=== PATIENT | female | born 1960 | race Caucasian/White ===

== ENCOUNTER 2016-09-27 11:59 | Emergency (ER) | payer OTHER ==
[2016-09-27] MEDS ORDERED: NAPROXEN 250 MG TAB As Ordered ONE (12:41)
--- NOTE | 2016-09-27 13:20 | REP ---
Clinical: Trauma. Technique: AP, lateral, bilateral oblique views left third digit. Findings: The osseous structures and joint spaces are intact and normal. There is no evidence for acute fracture or dislocation. Surrounding soft tissues are unremarkable. No subcutaneous emphysema or radiodense foreign body. Impression: No acute fracture or dislocation. Signed by Benson Osborn MD 09/27/2016 01:11 P
--- NOTE | 2016-09-27 13:35 | EDDOCDS ---
Physician Documentation [facility] Name: Leia Goldberg Age: 55 yrs Sex: Female : 1960 Arrival Date: 09/27/2016 Time: 11:59 Bed 13 Private MD: No Pcp Disposition: 09/27/16 13:15 Discharged to Home/Self Care. Impression: Contusion of middle finger without damage to nail. - Condition is Stable. - Discharge Instructions: Elastic Bandage and RICE, Contusion, Contusion, [id number]. - Medication Reconciliation, Local Pharmacy Hours form. - Follow up: [facility]; When: Call to arrange an appointment. - Problem is new. - Symptoms are unchanged. Historical: - Allergies: no known allergies; - Home Meds: 1. none - PMHx: none; - PSHx: none; - Social history: Smoking status: Patient uses tobacco products, heavy tobacco smoker. No barriers to communication noted, The patient speaks fluent Urdu, Speaks appropriately for age. - Family history: Not pertinent. - : The pt / caregiver states he / she is not on anticoagulants. Home medication list is obtained from the patient. - Exposure Risk Screening:: None identified. Vital Signs: 09/27 12:02 BP 135 / 78; Pulse 77; Resp 18; Temp 97.1; Pulse Ox 97% on R/A; Weight 57.61 kg / jrd 127.01 lbs (M); Height 5 ft. 2 in. (157.48 cm); Pain 10/10; 12:02 Body Mass Index 23.23 (57.61 kg, 157.48 cm) jrd MDM: 12:32 Naproxen 500 mg PO once; administer with food or milk ordered. sd1 12:33 Fingers Ordered. EDMS 13:01 Financial registration complete. lg 13:12 [facility] [place]. Nursing Order ordered. sd1 13:24 [facility] Payment Agreement was scanned into [employer] and attached to record. lg Administered Medications: 12:47 Drug: Naproxen 500 mg [naproxen 250 mg tablet (2 tabs)] Route: PO; hs1 Signatures: Dispatcher [employer] EDNE Laury Paz MD MD sd1 Genoveva Giron RN RN Jordon Alvares, Reg Reg lg Bella Torres RN RN pml Karin Morales RN hs1 The chart was reviewed and I authenticate all verbal orders and agree with the evaluation and treatment provided.Attachments: 13:24 [facility] Payment Agreement lg MTDD
--- NOTE | 2016-09-27 13:35 | EDDOCDS ---
Nurse's Notes [facility] Name: Leia Goldberg Age: 55 yrs Sex: Female : 1960 Arrival Date: 09/27/2016 Time: 11:59 Bed 13 Private MD: No Pcp Diagnosis: Contusion of middle finger without damage to nail Presentation: 09/27 12:07 Presenting complaint: Patient states: was changing tire on the car and was holding tire pml by a hole and lifted it. pain and swelling to left finger. Adult Sepsis Screening: The patient does not have new or worsening altered mentation. Patient's respiratory rate is less than 22. Systolic blood pressure is greater than 100. Patient has a qSOFA score of 0- Negative Sepsis Screen. Suicide/Homicide risk assessment- the patient denies having any suicidal and/or homicidal ideations and does not present with any other emotional, behavioral or mental health complaints. 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 Transition of care: patient was not received from another setting of care. 12:07 Acuity: DASIA Level 4 pml 12:07 Method Of Arrival: Walkin/Carried/Asstd pml Triage Assessment: 12:08 General: Appears in no apparent distress, Behavior is appropriate for age, cooperative. pml Pain: Location: dorsal aspect of proximal phalanx of left index finger and dorsal aspect of proximal phalanx of left middle finger Pain currently is 10 out of 10 on a pain scale. HIV screening NA for this visit Offered previously. Musculoskeletal: Circulation, motion, and sensation intact Capillary refill < 3 seconds. Historical: - Allergies: no known allergies; - Home Meds: 1. none - PMHx: none; - PSHx: none; - Social history: Smoking status: Patient uses tobacco products, heavy tobacco smoker. No barriers to communication noted, The patient speaks fluent Urdu, Speaks appropriately for age. - Family history: Not pertinent. - : The pt / caregiver states he / she is not on anticoagulants. Home medication list is obtained from the patient. - Exposure Risk Screening:: None identified. Screenin:49 Screening information is obtained from the patient. Fall risk: No risks identified. hs1 Assistance ADL's: requires no assistance with activities of daily living. Abuse/DV Screen: The patient / caregiver reports he/she is: not in a situation that causes fear, pain or injury. Nutritional screening: No deficits noted. Advance Directives: There is no active DNR order. home support is adequate. Assessment: 12:49 General: Appears in no apparent distress, Behavior is appropriate for age, cooperative. hs1 Pain: Location: left hand Pain currently is 10 out of 10 on a pain scale. Respiratory: No deficits noted. Musculoskeletal: Range of motion intact in all extremities. Swelling present in left hand. 13:30 Reassessment: Finger splint applied to left middle finger and patient instructed. kcs Tolerated well.. General: Appears comfortable, well developed, well nourished, Behavior is cooperative, pleasant. Pain: Location: left middle finger Pain. Neurological: Level of Consciousness is awake, alert. Respiratory: Airway is patent Respiratory effort is even, unlabored, Respiratory pattern is regular, symmetrical. Derm: Skin is intact, is healthy with good turgor, Skin is dry, Skin is normal. Vital Signs: 12:02 BP 135 / 78; Pulse 77; Resp 18; Temp 97.1; Pulse Ox 97% on R/A; Weight 57.61 kg (M); jrd Height 5 ft. 2 in. (157.48 cm); Pain 10/10; 12:02 Body Mass Index 23.23 (57.61 kg, 157.48 cm) [facility] Vitals: 12:02 Log In Time: September 27, 2016 at 11:56. [facility] ED Course: 12:00 Patient visited by Paolo Shepard PCA. jrd 12:00 Patient moved to Waiting jrd 12:02 No Pcp is Private Physician. jrd 12:04 Patient visited by Paolo Shepard PCA. jrd 12:04 Patient moved to Pre E jrd 12:08 Triage Initiated pml 12:09 Patient visited by Bella Torres RN. pml 12:29 Karin Morales RN is Primary Nurse. js13 12:29 Laury Paz MD is Attending Physician. sd1 12:29 Patient visited by Laury Paz MD. sd1 12:29 Patient moved to 13 js13 12:50 The patient / caregiver is instructed regarding the plan of care and ED course. hs1 12:50 No IV's were initiated during this patient's visit. hs1 13:14 [facility] is Referral Physician. sd1 13:24 [facility] Payment Agreement was scanned into [employer] and attached to record. lg 13:30 No procedures done that require assistance. kcs Administered Medications: 12:47 Drug: Naproxen 500 mg [naproxen 250 mg tablet (2 tabs)] Route: PO; hs1 Order Results: There are currently no results for this order. Outcome: 13:15 Discharge ordered by Provider. sd1 13:30 Discharge Assessment: Patient awake, alert and oriented x 3. No cognitive and/or kcs functional deficits noted. Patient verbalized understanding of disposition instructions. Patient awake and alert. patient administered narcotics - no. The following High Risk Discharge criteria are identified: None. Discharged to home ambulatory. Condition: stable. Discharge instructions given to patient, Instructed on discharge instructions, follow up and referral plans. No special radiology studies were completed. Property sent home with patient. 13:35 Patient left the ED. kcs Signatures: Laury Paz MD MD sd1 Genoveva Giron, RN RN kcs Jordon Bradford, Reg Reg Karin Morales RN RN hs1 Bella TorresRN RN Myrna WeberRN RN js13 Paolo Shepard, ALESSANDRA CANDY ROLLING MACHINE OPERATOR jrd MTDD
--- NOTE | 2016-09-29 14:36 | EDDOCDS ---
Physician Documentation [facility] Name: Leia Goldberg Age: 55 yrs Sex: Female : 1960 Arrival Date: 09/27/2016 Time: 11:59 Bed 13 Private MD: No Pcp Disposition: 09/27/16 13:15 Discharged to Home/Self Care. Impression: Contusion of middle finger without damage to nail. - Condition is Stable. - Discharge Instructions: Elastic Bandage and RICE, Contusion, Contusion, [id number]. - Medication Reconciliation, Local Pharmacy Hours form. - Follow up: [facility]; When: Call to arrange an appointment. - Problem is new. - Symptoms are unchanged. Historical: - Allergies: no known allergies; - Home Meds: 1. none - PMHx: none; - PSHx: none; - Social history: Smoking status: Patient uses tobacco products, heavy tobacco smoker. No barriers to communication noted, The patient speaks fluent Uzbek, Speaks appropriately for age. - Family history: Not pertinent. - : The pt / caregiver states he / she is not on anticoagulants. Home medication list is obtained from the patient. - Exposure Risk Screening:: None identified. Vital Signs: 09/27 12:02 BP 135 / 78; Pulse 77; Resp 18; Temp 97.1; Pulse Ox 97% on R/A; Weight 57.61 kg / jrd 127.01 lbs (M); Height 5 ft. 2 in. (157.48 cm); Pain 10/10; 12:02 Body Mass Index 23.23 (57.61 kg, 157.48 cm) jrd MDM: 12:32 Naproxen 500 mg PO once; administer with food or milk ordered. sd1 12:33 Fingers Ordered. EDMS 13:01 Financial registration complete. lg 13:12 [facility] [place]. Nursing Order ordered. sd1 13:24 [facility] [place] Payment Agreement was scanned into [employer] and attached to record. lg 14:50 T-Sheet-- Draft Copy was scanned into [employer] and attached to record. gb Administered Medications: 12:47 Drug: Naproxen 500 mg [naproxen 250 mg tablet (2 tabs)] Route: PO; hs1 Signatures: Dispatcher [employer] EDCA Laury Paz MD MD sd1 Genoveva Giron, RN RN kcs Promise Huang, Reg Reg gb Jordon Bradford, Reg Reg lg Bella Torres RN RN [facility] Karin Morales RN hs1 The chart was reviewed and I authenticate all verbal orders and agree with the evaluation and treatment provided.Attachments: 13:24 [facility] Payment Agreement lg 14:50 T-Sheet-- Draft Copy gb Chart Complete MTDD
--- NOTE | 2016-09-29 14:36 | EDDOCDS ---
Physician Documentation [facility] Name: Leia Goldberg Age: 55 yrs Sex: Female : 1960 Arrival Date: 09/27/2016 Time: 11:59 Bed 13 Private MD: No Pcp Disposition: 09/27/16 13:15 Discharged to Home/Self Care. Impression: Contusion of middle finger without damage to nail. - Condition is Stable. - Discharge Instructions: Elastic Bandage and RICE, Contusion, Contusion, [id number]. - Medication Reconciliation, Local Pharmacy Hours form. - Follow up: [facility]; When: Call to arrange an appointment. - Problem is new. - Symptoms are unchanged. Historical: - Allergies: no known allergies; - Home Meds: 1. none - PMHx: none; - PSHx: none; - Social history: Smoking status: Patient uses tobacco products, heavy tobacco smoker. No barriers to communication noted, The patient speaks fluent Croatian, Speaks appropriately for age. - Family history: Not pertinent. - : The pt / caregiver states he / she is not on anticoagulants. Home medication list is obtained from the patient. - Exposure Risk Screening:: None identified. Vital Signs: 09/27 12:02 BP 135 / 78; Pulse 77; Resp 18; Temp 97.1; Pulse Ox 97% on R/A; Weight 57.61 kg / jrd 127.01 lbs (M); Height 5 ft. 2 in. (157.48 cm); Pain 10/10; 12:02 Body Mass Index 23.23 (57.61 kg, 157.48 cm) jrd MDM: 12:32 Naproxen 500 mg PO once; administer with food or milk ordered. sd1 12:33 Fingers Ordered. EDMS 13:01 Financial registration complete. lg 13:12 [facility] [place]. Nursing Order ordered. sd1 13:24 [facility] [place] Payment Agreement was scanned into [employer] and attached to record. lg 14:50 T-Sheet-- Draft Copy was scanned into [employer] and attached to record. gb Administered Medications: 12:47 Drug: Naproxen 500 mg [naproxen 250 mg tablet (2 tabs)] Route: PO; hs1 Signatures: Dispatcher [employer] EDMT Laury Paz MD MD sd1 Genoveva Giron, RN RN kcs Promise Huang, Reg Reg gb Jordon Bradford, Reg Reg lg Bella Torres RN RN [facility] Karin Morales RN hs1 The chart was reviewed and I authenticate all verbal orders and agree with the evaluation and treatment provided.Attachments: 13:24 [facility] Payment Agreement lg 14:50 T-Sheet-- Draft Copy gb Chart Complete MTDD
--- NOTE | 2016-09-29 14:36 | EDDOCDS ---
Nurse's Notes [facility] Name: Leia Goldberg Age: 55 yrs Sex: Female : 1960 Arrival Date: 09/27/2016 Time: 11:59 Bed 13 Private MD: No Pcp Diagnosis: Contusion of middle finger without damage to nail Presentation: 09/27 12:07 Presenting complaint: Patient states: was changing tire on the car and was holding tire pml by a hole and lifted it. pain and swelling to left finger. Adult Sepsis Screening: The patient does not have new or worsening altered mentation. Patient's respiratory rate is less than 22. Systolic blood pressure is greater than 100. Patient has a qSOFA score of 0- Negative Sepsis Screen. Suicide/Homicide risk assessment- the patient denies having any suicidal and/or homicidal ideations and does not present with any other emotional, behavioral or mental health complaints. Status: Patient is not a office services representative or dependent. Transition of care: patient was not received from another setting of care. 12:07 Acuity: DASIA Level 4 pml 12:07 Method Of Arrival: Walkin/Carried/Asstd pml Triage Assessment: 12:08 General: Appears in no apparent distress, Behavior is appropriate for age, cooperative. pml Pain: Location: dorsal aspect of proximal phalanx of left index finger and dorsal aspect of proximal phalanx of left middle finger Pain currently is 10 out of 10 on a pain scale. HIV screening NA for this visit Offered previously. Musculoskeletal: Circulation, motion, and sensation intact Capillary refill < 3 seconds. Historical: - Allergies: no known allergies; - Home Meds: 1. none - PMHx: none; - PSHx: none; - Social history: Smoking status: Patient uses tobacco products, heavy tobacco smoker. No barriers to communication noted, The patient speaks fluent German, Speaks appropriately for age. - Family history: Not pertinent. - : The pt / caregiver states he / she is not on anticoagulants. Home medication list is obtained from the patient. - Exposure Risk Screening:: None identified. Screenin:49 Screening information is obtained from the patient. Fall risk: No risks identified. hs1 Assistance ADL's: requires no assistance with activities of daily living. Abuse/DV Screen: The patient / caregiver reports he/she is: not in a situation that causes fear, pain or injury. Nutritional screening: No deficits noted. Advance Directives: There is no active DNR order. home support is adequate. Assessment: 12:49 General: Appears in no apparent distress, Behavior is appropriate for age, cooperative. hs1 Pain: Location: left hand Pain currently is 10 out of 10 on a pain scale. Respiratory: No deficits noted. Musculoskeletal: Range of motion intact in all extremities. Swelling present in left hand. 13:30 Reassessment: Finger splint applied to left middle finger and patient instructed. kcs Tolerated well.. General: Appears comfortable, well developed, well nourished, Behavior is cooperative, pleasant. Pain: Location: left middle finger Pain. Neurological: Level of Consciousness is awake, alert. Respiratory: Airway is patent Respiratory effort is even, unlabored, Respiratory pattern is regular, symmetrical. Derm: Skin is intact, is healthy with good turgor, Skin is dry, Skin is normal. Vital Signs: 12:02 BP 135 / 78; Pulse 77; Resp 18; Temp 97.1; Pulse Ox 97% on R/A; Weight 57.61 kg (M); jrd Height 5 ft. 2 in. (157.48 cm); Pain 10/10; 12:02 Body Mass Index 23.23 (57.61 kg, 157.48 cm) [facility] Vitals: 12:02 Log In Time: September 27, 2016 at 11:56. [facility] ED Course: 12:00 Patient visited by Paolo Shepard PCA. jrd 12:00 Patient moved to Waiting jrd 12:02 No Pcp is Private Physician. jrd 12:04 Patient visited by Paolo Shepard PCA. jrd 12:04 Patient moved to Pre E jrd 12:08 Triage Initiated pml 12:09 Patient visited by Bella Torres RN. pml 12:29 Karin Morales RN is Primary Nurse. js13 12:29 Laury Paz MD is Attending Physician. sd1 12:29 Patient visited by Laury Paz MD. sd1 12:29 Patient moved to 13 js13 12:50 The patient / caregiver is instructed regarding the plan of care and ED course. hs1 12:50 No IV's were initiated during this patient's visit. hs1 13:14 [facility] is Referral Physician. sd1 13:24 [facility] [place] Agreement was scanned into [employer] and attached to record. lg 13:30 No procedures done that require assistance. kcs 13:51 Fingers Returned. EDMS 14:50 T-Sheet-- Draft Copy was scanned into [employer] and attached to record. gb Administered Medications: 12:47 Drug: Naproxen 500 mg [naproxen 250 mg tablet (2 tabs)] Route: PO; hs1 Order Results: Radiology Order: Fingers Test: Fingers REASON FOR EXAMINATION: middle; Clinical: Trauma.; ; Technique: AP, lateral, bilateral oblique views left third digit.; ; Findings: The osseous structures and joint spaces are intact and normal. There; is no evidence for acute fracture or dislocation. Surrounding soft tissues are; unremarkable. No subcutaneous emphysema or radiodense foreign body.; ; Impression:; No acute fracture or dislocation.; ; ; Signed by; Benson Osborn MD 09/27/2016 01:11 P; Outcome: 13:15 Discharge ordered by Provider. sd1 13:30 Discharge Assessment: Patient awake, alert and oriented x 3. No cognitive and/or kcs functional deficits noted. Patient verbalized understanding of disposition instructions. Patient awake and alert. patient administered narcotics - no. The following High Risk Discharge criteria are identified: None. Discharged to home ambulatory. Condition: stable. Discharge instructions given to patient, Instructed on discharge instructions, follow up and referral plans. No special radiology studies were completed. Property sent home with patient. 13:35 Patient left the ED. kcs Signatures: Dispatcher [employer] EDHI Laury Paz MD MD sd1 Genoveva Giron, RN RN kcs Promise Huang, Reg Reg gb Jordon Bradford, Reg Reg lg Karin Morales RN RN hs1 Bella Torres RN RN pml Sullivan, JenniferRN RN js13 Paolo Shepard, ALESSANDRA march Chart Complete MTDD
== END 2016-09-27 13:35 | disposition home or self-care (01) ==
LOC: M ED 11:59
DX: S60.032A Contusion of left middle finger without damage to nail, initial encounter (principal); X58.XXXA Exposure to other specified factors, initial encounter; Y92.410 Unspecified street and highway as the place of occurrence of the external cause; Y93.9 Activity, unspecified; Y99.9 Unspecified external cause status; Z72.0 Tobacco use

== ENCOUNTER 2017-09-24 12:45 | Emergency (ER) | payer OTHER, MEDICAID ==
[2017-09-24 13:57] LABS: INFLUENZA A AMPLIFICATION POSITIVE (NEGATIVE); INFLUENZA B AMPLIFICATION NEGATIVE (NEGATIVE)
== END 2017-09-24 14:20 | disposition home or self-care (01) ==
LOC: M ED 12:45
DX: J09.X2 Influenza due to identified novel influenza A virus with other respiratory manifestations (principal); H66.92 Otitis media, unspecified, left ear; F17.200 Nicotine dependence, unspecified, uncomplicated; Z91.89 Other specified personal risk factors, not elsewhere classified; Z91.013 Allergy to seafood
CPT/HCPCS: 71046

== ENCOUNTER 2018-05-23 11:03 | Emergency (ER) | payer OTHER | END 2018-05-23 13:01 | disposition home or self-care (01) | LOC: M ED 11:03 | DX: S39.012A Strain of muscle, fascia and tendon of lower back, initial encounter (principal); S39.011A Strain of muscle, fascia and tendon of abdomen, initial encounter; M62.830 Muscle spasm of back; X50.0XXA Overexertion from strenuous movement or load, initial encounter; Y92.89 Other specified places as the place of occurrence of the external cause; Y99.0 Civilian activity done for income or pay; M51.37 Other intervertebral disc degeneration, lumbosacral region; M47.817 Spondylosis without myelopathy or radiculopathy, lumbosacral region; F17.200 Nicotine dependence, unspecified, uncomplicated; Z88.8 Allergy status to other drugs, medicaments and biological substances; Z91.048 Other nonmedicinal substance allergy status; Z91.013 Allergy to seafood | CPT/HCPCS: 72110 ==

== ENCOUNTER 2019-03-06 15:26 | Emergency (ER) | payer OTHER ==
[~2019-03-06] VITALS: Ht 157.5 cm; Wt 52.3 kg
[~2019-03-06 15:26] MED LIST: CEFD1CAP8 PO; CYCL5TAB PO; NAPR-837 PO
[2019-03-06 15:27] VITALS: BP 174/83
[2019-03-06 16:27] LABS: HEMATOCRIT 44.7 % (36.0-47.0); HEMOGLOBIN 14.4 g/dl (12.0-15.5); MEAN CORPUSCULAR HEMOGLOBIN 30.4 pg (27.0-33.0); MEAN CORPUSCULAR HGB CONC 32.2 g/dl (32.0-36.5); MEAN CORPUSCULAR VOLUME 94.5 fl (80.0-96.0); PLATELET COUNT, AUTOMATED 376 10^3/uL (150-450); RED BLOOD COUNT 4.73 10^6/uL (4.00-5.40); WHITE BLOOD COUNT 9.2 10^3/uL (4.0-10.0)
[2019-03-06 17:03] LABS: ACETAMINOPHEN LEVEL < 2.0 UG/ML (10.0-30.0); ALBUMIN 3.7 GM/DL (3.2-5.2); ALT/SGPT 21 U/L (12-78); BILIRUBIN,DIRECT < 0.1 MG/DL (0.0-0.2); BILIRUBIN,TOTAL 0.2 MG/DL (0.2-1.0); BLOOD UREA NITROGEN 21 MG/DL (7-18); CALCIUM LEVEL 9.7 MG/DL (8.8-10.2); CARBON DIOXIDE LEVEL 30 MEQ/L (21-32); CHLORIDE LEVEL 109 MEQ/L (98-107); CREATININE FOR GFR 0.83 MG/DL (0.55-1.30); ETHYL ALCOHOL (ETHANOL) 0.003 % (0.000-0.010); FREE THYROXINE INDEX 3.3 % (1.3-4.8); GLOMERULAR FILTRATION RATE > 60.0 (>45); GLUCOSE, FASTING 138 MG/DL (70-100); LDH LACTATE DEHYDROGENASE 158 U/L (84-246); POTASSIUM SERUM 3.7 MEQ/L (3.5-5.1); SALICYLATE LEVEL 5.6 MG/DL (5.0-30.0); SODIUM LEVEL 143 MEQ/L (136-145); T UPTAKE 36 % (30-39); THYROXINE (T4) 9.3 UG/DL (4.5-12.0); TOTAL PROTEIN 7.1 GM/DL (6.4-8.2)
[2019-03-09 14:07] LABS: ANDROSTENEDIONE 55 ng/dL (41-262); TESTOSTERONE FREE (DIRECT) 0.7 pg/mL (0.0-4.2)
== END 2019-03-06 17:37 | disposition home or self-care (01) ==
LOC: M ED 15:26
DX: F29 Unspecified psychosis not due to a substance or known physiological condition (principal); F32.9 Major depressive disorder, single episode, unspecified; Z88.8 Allergy status to other drugs, medicaments and biological substances; Z91.048 Other nonmedicinal substance allergy status; Z91.013 Allergy to seafood
CPT/HCPCS: 36415; 80048; 80076; 82157; 83615; 84402; 84403; 84436; 84443; 84479; 85027; 99284; G0480

== ENCOUNTER 2019-03-21 15:44 | Inpatient (IN) | payer MEDICAID, OTHER ==
[~2019-03-21] VITALS: Ht 157.5 cm; Wt 47.3 kg
[~2019-03-21 15:44] MED LIST changes: +NAPR-885 PO; +ROBA500T PO; +SOMA350T PO
--- NOTE | 2019-03-21 17:03 | REP ---
Chest x-ray: Two views. History: Altered mental status. Findings: The lungs are somewhat hyperinflated but free of infiltrate. Pleural angles are sharp. Heart is not enlarged. The aorta is calcific. There is some great vessel calcification visible adjacent to the aorta. Pulmonary vasculature is not increased. No significant bony abnormality is seen. Impression: Hyperinflation. Otherwise no acute disease. Electronically Signed by Michael Owens MD 03/21/2019 09:08 P
--- NOTE | 2019-03-21 17:19 | REPVR ---
EXAM: CT Head Without Contrast EXAM DATE/TIME: 03/21/2019 4:35 PM CLINICAL HISTORY: 58 years old, female; Pain; Headache; Additional info: Altered TECHNIQUE: Imaging protocol: Computed tomography images of the head without contrast. Radiation optimization: All CT scans at this facility use at least one of these dose optimization techniques: automated exposure control; mA and/or kV adjustment per patient size (includes targeted exams where dose is matched to clinical indication); or iterative reconstruction. COMPARISON: No relevant prior studies available. FINDINGS: Brain: There is no evidence of infarct, shen-white matter differentiation is preserved. There is no hemorrhage or extra-axial collection. There is no mass. No evidence of subarachnoid hemorrhage. Ventricles: There is no hydrocephalus. Bones/joints: Unremarkable. No acute fracture. Sinuses: Visualized sinuses are unremarkable. No fluid levels. Mastoid air cells: Visualized mastoid air cells are well aerated. No mastoid effusion. Soft tissues: Unremarkable. IMPRESSION: No intracranial lesion or injury. Electronically signed by: Milan Caba On 03/21/2019 17:19:10 PM
[2019-03-21 17:25] LABS: HEMATOCRIT 43.5 % (36.0-47.0); HEMOGLOBIN 14.2 g/dl (12.0-15.5); MEAN CORPUSCULAR HEMOGLOBIN 31.3 pg (27.0-33.0); MEAN CORPUSCULAR HGB CONC 32.6 g/dl (32.0-36.5); PLATELET COUNT, AUTOMATED 366 10^3/uL (150-450); RED BLOOD COUNT 4.53 10^6/uL (4.00-5.40); WHITE BLOOD COUNT 8.8 10^3/uL (4.0-10.0)
[2019-03-21 17:26] LABS: AMPHETAMINES LEVEL URINE NEGATIVE (NEGATIVE); BARBITURATES URINE NEGATIVE (NEGATIVE); BENZODIAZEPINES URINE NEGATIVE (NEGATIVE); CANNABINOIDS URINE NEGATIVE (NEGATIVE); COCAINE METABOLITE URINE NEGATIVE (NEGATIVE); METHADONE URINE NEGATIVE (NEGATIVE); OPIATES URINE NEGATIVE (NEGATIVE); PHENCYCLIDINE URINE NEGATIVE (NEGATIVE)
[2019-03-21] MEDS ORDERED: NITROFURANTOIN (MACROBID) 100 MG CAP PO ONE (17:45)
[2019-03-21 17:58] LABS: ACETAMINOPHEN LEVEL < 2.0 UG/ML (10.0-30.0); ALBUMIN 3.5 GM/DL (3.2-5.2); ALT/SGPT 33 U/L (12-78); BILIRUBIN,DIRECT < 0.1 MG/DL (0.0-0.2); BILIRUBIN,TOTAL 0.1 MG/DL (0.2-1.0); BLOOD UREA NITROGEN 15 MG/DL (7-18); CALCIUM LEVEL 9.2 MG/DL (8.8-10.2); CARBON DIOXIDE LEVEL 33 MEQ/L (21-32); CHLORIDE LEVEL 104 MEQ/L (98-107); CPK CREATINE PHOSPHOKINASE 195 U/L (26-192); CREATININE FOR GFR 0.72 MG/DL (0.55-1.30); ETHYL ALCOHOL (ETHANOL) < 0.003 % (0.000-0.010); GLOMERULAR FILTRATION RATE > 60.0 (>45); GLUCOSE, FASTING 94 MG/DL (70-100); MAGNESIUM LEVEL 2.5 MG/DL (1.8-2.4); POTASSIUM SERUM 4.1 MEQ/L (3.5-5.1); SALICYLATE LEVEL 4.6 MG/DL (5.0-30.0); SODIUM LEVEL 142 MEQ/L (136-145); THYROID STIMULATING HORMONE 0.506 uIU/ML (0.358-3.740); TOTAL PROTEIN 6.6 GM/DL (6.4-8.2)
--- NOTE | 2019-03-21 18:09 | ECGEPIP ---
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
[2019-03-21] MEDS ORDERED: QUEtiapine FUMARATE 50 MG TAB PO PRN (21:30)
[2019-03-21] MEDS ORDERED: MAALOX 30 ML SUSP *UDC PO PRN (21:30)
[2019-03-21] MEDS ORDERED: OLANZapine ORAL DISINTEGRATING TAB 5MG PO PRN (21:30)
[2019-03-21] MEDS ORDERED: ACETAMINOPHEN TAB 650MG DOSE (2X325MG) PO PRN (21:30)
[2019-03-21] MEDS ORDERED: MOM 30ML SUSPENSION UDC PO PRN (21:30)
[2019-03-21] MEDS ORDERED: lisinopriL 10 MG TAB PO ONE (22:30)
[2019-03-21] MEDS ORDERED: LORazepam 1 MG TAB PO ONE (22:30)
[2019-03-21] MEDS: PALIPERIDONE 3 MG ER TAB (INVEGA) PO SCH (22:33)
[2019-03-22 00:46] VITALS: BP 160/88
[2019-03-22 06:40] VITALS: BP 132/63
--- NOTE | 2019-03-22 07:47 | HPEPDOC ---
General Date of Admission Mar 21, 2019 at 21:22 Date of Service: Mar 22, 2019 Attending Physician: LANEY RIGGS MD Chief Complaint The patient is a 58-year-old female admitted with a reason for visit of Unspecified Psychotic Disorder. History of Present Illness Norman Barnes is a 58-year-old female, admitted on account of paranoid delusional behavior, who recently called the fashion journalist for "people following her". Patient was admitted to inpatient psychiatric unit for further evaluation and management. On assessment. Affect is flat, patient is unable to provide any hist ory. She denies chills or fever, chest pain, shortness of breath, weakness, diarrhea, nausea. Home Medications No Active Prescriptions or Reported Meds Allergies Coded Allergies: shellfish derived (Verified Allergy, Unknown, 03/21/19) Past Medical History Medical History Patient denies any past medical history Surgical History Patient denies any surgical history Family History Patient denies any significant family history Social History * Smoker: Denies Alcohol: Denies Drugs: denies A-FIB/CHADSVASC A-FIB History Current/History of A-Fib/PAF?: No Current PO Anticoag Therapy: No Review of Systems Other systems Review of systems not completed due to current mental status Physical Examination Other physical findings GENERAL: NAD SKIN : Warm, dry intact HEENT: Atraumatic, normocephalic, PERRL, moist mucous membrane CARDIOVASCULAR: Regular rate and rhythm, S1S2, no JVD, no edema, distal pulses + palpable RESP: CTAB, no accessory muscle use noted ABDOMEN: BS+ non distended non tender MS: no joint deformities NEURO: Alert and oriented to self, CN2-12 grossly intact PSYCH: paranoid Vital Signs Vital Signs Date Time Temp Pulse Resp B/P (MAP) Pulse Ox O2 Delivery O2 Flow Rate FiO2 03/22/19 06:40 99.0 67 16 132/63 (86) 03/22/19 00:46 99 03/21/19 22:20 Room Air Laboratory Data Labs 24H Laboratory Tests 2 03/21/19 16:51: Urine Color YELLOW, Urine Appearance HAZY, Urine pH 6.0, Urine Specific Dewitt 1.018, Urine Protein NEGATIVE, Urine Glucose (UA) NEGATIVE, Urine Ketones NEGATIVE, Urine Blood 1+H, Urine Nitrite NEGATIVE, Urine Bilirubin NEGATIVE, Urine Urobilinogen 2.0H, Urine Leukocyte Esterase TRACEH, Urine WBC (Auto) 15H, Urine RBC (Auto) 3, Urine Hyaline Casts (Auto) 0, Urine Bacteria (Auto) 1+H, Urine Squamous Epithelial Cells 5, Urine Calcium Oxalate Cryst (Auto) SMALL, Urine Mucus (Auto) LARGE, Urine Sperm (Auto) , Urine Amphetamines Screen NEGATIVE, Urine Benzodiazepines Screen NEGATIVE, Urine Opiates Screen NEGATIVE, Urine Methadone Screen NEGATIVE, Urine Barbiturates Screen NEGATIVE, Urine Phencyclidine Screen NEGATIVE, Urine Cocaine Metabolite Screen NEGATIVE, Urine Cannabinoids Screen NEGATIVE 03/21/19 17:07: Nucleated Red Blood Cells % (auto) 0.0, Anion Gap 5L, Glomerular Filtration Rate > 60.0, Calcium Level 9.2, Magnesium Level 2.5H, Aspartate Amino Transf (AST/SGOT) 27, Alanine Aminotransferase (ALT/SGPT) 33, Alkaline Phosphatase 71, Total Bilirubin 0.1L, Direct Bilirubin < 0.1, Total Creatine Kinase 195H, Total Protein 6.6, Albumin 3.5, Albumin/Globulin Ratio 1.13, Thyroid Stimulating Hormone (TSH) 0.506, Salicylates Level 4.6L, Acetaminophen Level < 2.0L, Ethyl Alcohol Level < 0.003 CBC/BMP Laboratory Tests 03/21/19 17:07 Red Blood Count 4.53, Mean Corpuscular Volume 96.0, Mean Corpuscular Hemoglobin 31.3, Mean Corpuscular Hemoglobin Concent 32.6, Red Cell Distribution Width 14.4 Microbiology Microbiology 03/21/19 Urine Culture, Received Pending RAD Interpretation STUDY: CT brain: Negative for acute intracranial process. Assessment/Plan Elevated Blood Pressure -without prior hypertension diagnosis -start lisinopril -blood pressure monitoring per unit protocol Abnormal urinalysis -Without any symptoms or elevated white count -Patient received 1 dose of nitrofurantoin in the ED -Follow urine culture and treat if positive culture Acute psychosis and paranoia -Etiology unclear -Management by primary team Plan / VTE VTE Prophylaxis Ordered?: No VTE Exclusion Mechanical Proph: Low Risk for VTE SOUMYA MENDEZP Mar 22, 2019 07:47
--- NOTE | 2019-03-22 08:27 | MHHPEPDOC ---
General Date Of Admission: Mar 21, 2019 Legal Status: 9.39 Chief Complaint "I don't know" why i'm here. History of Present Illness HISTORY OF THE PRESENT ILLNESS: Jaquelin is a 58 -year-old , female, who was brought into the ED by her brother (Timoteo) and her daughter (Reji) due to concerns over recent onset bizarre behaviors. Recently Jaquelin has been increasingly paranoid, confused, and has had memory loss. Additionally, MICHAEL recently called the spiral winder saying that there were people following her and was observed by [facility] to be counting blocks in the side walk [place]. Per ED, Jaquelin has not been eating well recently. Per ED, Reji stated that she does not know what is going on with her mother and that it seems like Jauqelin has a mental illness. Jaquelin appeared to have little insight as to why she was in the hospital or about her altered mental status. Tamie toxicology report was negative and TSH was 0.506 (normal is 0.358-3.74). Upon admission Tamie blood pressure checks have indicated hypertension with her most recent check measuring 190/90 (RR 18, HR 72). Head CT was negative for intracranial bleeds or lesions. Chest X ray was significant for lung hyperinflation but no acute pathology, masses or infiltrates. Per ED, Jaquelin is not currently on any home medications and has no history of psychosis. Psychiatric Review of Systems Depression (2 or more weeks): denies Maren (4 or more days of): denies Psychosis: other (bizarre behavior, counting blocks) PTSD: denies Anxiety: stressor related anxiety (worries about the safety of her family), panic attacks Past Psychiatric History Previous Psychiatric Diagnosis: Bipolar - unsure of who gave her the diagnosis, where she was, or when it was given - clearly has a lack of insight/memory gaps Previous Psychiatric Admissions: Denies Suicide Attempts: Denies Psychiatric Follow-up: Would like to follow up in outpatient setting but does not have a current mental health provider Psychiatric medications: Doesn't take medications. Doesn't think she needs to - can control it on her own. Past Medical History Head Injury: No Seizures: No Hospitalizations: No Surgeries: Yes (Appendectomy) Family Medical/Psychiatric HX Psychiatric Disorders: No Addiction: No Suicide Attemps/Completions: No Addiction History nicotine Social History Childhood: Childhood was "OK". Grew up in foster home and with her parents. 7 siblings that were split up in foster care but then were replaced with parents eventually. Abuse/Trauma: Denies Current Living Situation: Lives in [place] with her son. Education: HS grad with 1.5 years of college - for education Employment: Unemployed. 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 Social Support: Close with family. Her mother, sister, son, brother, and daughter all live in the area. She lives with her son. Legal: Denies Marital: Single. 2 children. 1 son and 1 daughter. Mental Status Examination General Appearance: disheveled, hospital scubs/clothing, other (malodorous) Build: thin Demeanor: mistrustful, guarded Eye Contact: avoidant Activity: anxious Behavior: cooperative, withdrawn Speech: clear, low in volume, non-spontaneous, impoverished Mood: anxious Mood "good" Affect: constricted, flat, inappropriate Thought Process: logical/linear, concrete (very), slow Thought Content (Delusions): bizarre, denies SI, HI, AVH, paranoia Thought Content (Other): guarded, appears paranoid, unable to elaborate Thought Content (Aggressive): none reported Perception (Hallucinations): none reported Perception (Other): none reported Cognition (Impairment of): memory Cognition(Intelligence Est.): average Oriented: Awake, Alert, Oriented times three Insight: poor Judgment: Poor Psychosis: Psychotic Perceptions Diagnoses unspecified psychosis A-FIB/CHADSVASC A-FIB History Current/History of A-Fib/PAF?: No Current PO Anticoag Therapy: No Treatment Treatment ordered: NONE Reason Anticoagulant not given: Not indicated/Choof4bjrs Assessment Leia presents from the ER where she was brought by her son and daughter who were concerned about recent onset confusion and paranoia. She denies having any confusion or current paranoia. She admits to calling the police about thinking people were following her about a month ago. She also admits to counting steps but says she hasn't done anything like that in "a while". Leia seems to have very little insight as to her apparent disorganized mental process. She states that she wants to leave and hasn't done anything wrong. She denies visual, auditory, or tactile hallucinations. Besides her calling the spiral winder about being followed she denies any other paranoia or delusions although appears very paranoid when seen. She denies substance abuse except for smoking tobacco since she was a teenager. Her thought process is somewhat disorganized. She has the ability to answer questions with short direct answers but will not/is not able to elaborate. Her memory seems to be very poor. She seems to be defensive about her answers and clearly does not want to be here. She is very guarded, mistrustful when seen. Asking to call an grove superintendent out of fear she will be kept here forever or that I will harm her. Advised pt repeatedly that I'm trying to help her with treatment, medications, safety. She is agreeable to starting risperidone for her symptoms to help her. Will get MRI due to risk of possible vascular dementia as she has a history of HTN. She is very malodorous and paranoid when seen. Initial Treatment Plan 1. Patient was admitted on a 9.39 status. 2. Complete history was obtained. 3. With patients permission, family will be contacted and database will be expanded. 4. Patients medication regimen will be reviewed and changed accordingly. 5. Patient will be provided with protected environment. 6. Patient will be treated with individual, group, and milieu therapies. 7. Patient will receive supportive psych-education. 8. Discharge planning will commence immediately. 9. Outpatient follow-up treatment will be strongly recommended. 10. The initial treatment plan will focus initially on: * Depression. * Risk for suicide. * Substance abuse. 11. risperidone 1mg bid ESTIMATED LENGTH OF STAY: 5-7 DAYS. TIME SPENT COUNSELING AND COORDINATING INITIAL CARE: 60 minutes. Vital Signs Vital Signs Date Time Temp Pulse Resp B/P (MAP) Pulse Ox O2 Delivery O2 Flow Rate FiO2 03/22/19 06:40 99.0 67 16 132/63 (86) 03/22/19 00:46 99 03/21/19 22:20 Room Air Laboratory Data 24H Labs Laboratory Tests 2 03/21/19 16:51: Urine Color YELLOW, Urine Appearance HAZY, Urine pH 6.0, Urine Specific Moroni 1.018, Urine Protein NEGATIVE, Urine Glucose (UA) NEGATIVE, Urine Ketones NEGATIVE, Urine Blood 1+H, Urine Nitrite NEGATIVE, Urine Bilirubin NEGATIVE, Urine Urobilinogen 2.0H, Urine Leukocyte Esterase TRACEH, Urine WBC (Auto) 15H, Urine RBC (Auto) 3, Urine Hyaline Casts (Auto) 0, Urine Bacteria (Auto) 1+H, Urine Squamous Epithelial Cells 5, Urine Calcium Oxalate Cryst (Auto) SMALL, Urine Mucus (Auto) LARGE, Urine Sperm (Auto) , Urine Amphetamines Screen NEGATIVE, Urine Benzodiazepines Screen NEGATIVE, Urine Opiates Screen NEGATIVE, Urine Methadone Screen NEGATIVE, Urine Barbiturates Screen NEGATIVE, Urine Phencyclidine Screen NEGATIVE, Urine Cocaine Metabolite Screen NEGATIVE, Urine Cannabinoids Screen NEGATIVE 03/21/19 17:07: Nucleated Red Blood Cells % (auto) 0.0, Anion Gap 5L, Glomerular Filtration Rate > 60.0, Calcium Level 9.2, Magnesium Level 2.5H, Aspartate Amino Transf (A ST/SGOT) 27, Alanine Aminotransferase (ALT/SGPT) 33, Alkaline Phosphatase 71, Total Bilirubin 0.1L, Direct Bilirubin < 0.1, Total Creatine Kinase 195H, Total Protein 6.6, Albumin 3.5, Albumin/Globulin Ratio 1.13, Thyroid Stimulating Hormone (TSH) 0.506, Salicylates Level 4.6L, Acetaminophen Level < 2.0L, Ethyl Alcohol Level < 0.003 CBC/BMP Laboratory Tests 03/21/19 17:07 Red Blood Count 4.53, Mean Corpuscular Volume 96.0, Mean Corpuscular Hemoglobin 31.3, Mean Corpuscular Hemoglobin Concent 32.6, Red Cell Distribution Width 14.4 Medications No Active Prescriptions or Reported Meds Allergies Coded Allergies: shellfish derived (Verified Allergy, Unknown, 03/21/19) CALE GRUBER S-3 Mar 22, 2019 08:19
[2019-03-22] MEDS ORDERED: risperiDONE 1 MG TAB PO ONE (10:45)
[2019-03-22] MEDS: lisinopriL 5 MG TAB PO SCH (11:43)
[2019-03-22 18:00] VITALS: BP 123/75
[2019-03-22] MEDS: PALIPERIDONE 3 MG ER TAB (INVEGA) PO SCH (21:12)
[2019-03-22] MEDS: risperiDONE 1 MG TAB PO SCH (21:12)
--- NOTE | 2019-03-23 07:23 | IPNPDOC ---
Text Note Date of Service The patient was seen on 03/23/19. NOTE Norman Barnes is a 58-year-old female, admitted on account of paranoid delusional behavior, who recently called the web consultant for "people following her". Subjective. She denies dysuria, chills or fever, chest pain, shortness of breath, weakness, diarrhea, nausea. GENERAL: NAD SKIN : Warm, dry intact HEENT: Atraumatic, normocephalic, PERRL, moist mucous membrane CARDIOVASCULAR: Regular rate and rhythm, S1S2, no JVD, no edema, distal pulses + palpable RESP: CTAB, no accessory muscle use noted ABDOMEN: BS+ non distended non tender MS: no joint deformities NEURO: Alert and oriented to self, CN2-12 grossly intact PSYCH: paranoid A/P Hypertension -Started on lisinopril, continue lisinopril -Blood pressure monitoring per unit protocol Urinary tract infection -Patient denies symptoms, white blood count within normal limits -However, due to presentation with paranoia and no prior history of mental illness -Started on antibiotic therapy with Augmentin Acute psychosis -Management by primary team Belkis CONTE, I+O VSBelkis, I+O Vital Signs Date Time Temp Pulse Resp B/P (MAP) Pulse Ox O2 Delivery O2 Flow Rate FiO2 03/23/19 06:12 97.1 65 18 03/22/19 18:00 123/75 (91) 03/22/19 08:43 Room Air 03/22/19 00:46 99 SOUMYA MENDEZ Mar 23, 2019 07:23
[2019-03-23] MEDS: AUGMENTIN 875 MG TAB PO SCH ×2 (08:50→21:58)
[2019-03-23] MEDS: lisinopriL 5 MG TAB PO SCH (08:51)
[2019-03-23] MEDS: risperiDONE 1 MG TAB PO SCH ×2 (08:51→21:58)
[2019-03-23 18:14] VITALS: BP 136/70
[2019-03-23] MEDS: PALIPERIDONE 3 MG ER TAB (INVEGA) PO SCH (21:58)
[2019-03-24 06:00] VITALS: BP 130/84
--- NOTE | 2019-03-24 07:05 | MHIPN ---
DATE: 03/23/2019 VITAL SIGNS: Temperature 97.1, pulse 65, respirations 18, blood pressure 151/78. CURRENT MEDICATION: - Risperidone 1 mg twice a day. - Invega 3 mg at bedtime HISTORY OF PRESENT ILLNESS: This is a 58-year-old white female, single, living with her 26-year-old son. The patient has had recent episode of psychosis for the past several months. The patient has been increasingly paranoid. She was calling the police on multiple episodes claiming that people were following her. She was noted by the police department to be counting blocks on the sidewalk downtown. The patient has no prior history of psychosis. Neurological work up in the emergency room was negative. Heat CT was negative. The patient has been cooperative taking her antipsychotic medications while on the unit. The patient isolates to herself with little involvement in the hospital milieu. MENTAL STATUS EXAMINATION: The patient is alert and oriented. She is not a good historian. She denies depressive symptoms. She denies being a danger to self or others. The patient does appear to be paranoid. She denies hearing auditory hallucinations, but may be covering. Insight and judgment appear quite impaired. Grooming and hygiene are quite poor. DIAGNOSIS: Psychotic disorder unspecified. PLAN: Continue psychotropics. More input necessary from family members regarding any possible previous psychiatric history. Involve in hospital milieu.
[2019-03-24] MEDS: AUGMENTIN 875 MG TAB PO SCH ×2 (09:31→21:20)
[2019-03-24] MEDS: risperiDONE 1 MG TAB PO SCH ×2 (09:32→21:20)
[2019-03-24] MEDS: lisinopriL 5 MG TAB PO SCH (09:32)
[2019-03-24 18:03] VITALS: BP 147/71
[2019-03-24] MEDS: PALIPERIDONE 3 MG ER TAB (INVEGA) PO SCH (21:20)
[2019-03-25 06:55] VITALS: BP 130/63
[2019-03-25] MEDS: lisinopriL 5 MG TAB PO SCH (09:53)
[2019-03-25] MEDS: AUGMENTIN 875 MG TAB PO SCH ×2 (09:54→21:22)
--- NOTE | 2019-03-25 11:00 | MHIPN ---
DATE: 03/24/2019 VITAL SIGNS: Temperature 98.1, pulse 89, respirations 16, blood pressure 130/84. CURRENT MEDICATIONS: - Risperdal 1 mg twice a day - paliperidone 3 mg at bedtime HISTORY OF PRESENT ILLNESS: The patient volunteers little. She has been cooperative with the antipsychotics however. She states that her appetite is fine. She reports sleeping well at night. She claims her brother is coming to visit later today. She is not voicing any paranoid beliefs. The patient volunteers little and may be covering underlying psychosis however. The patient is still quite isolative, staying in her room with little interpersonal contact with her peers. MENTAL STATUS EXAMINATION The patient is alert and oriented. The patient volunteers little. She denies any and all psychiatric symptoms. She still appears guarded and paranoid. The patient may be covering psychosis. Insight and judgment appear poor. Grooming and hygiene remain marginal. DIAGNOSES: Psychotic disorder unspecified. Rule out schizophrenia. PLAN: Continue present management. Patient may be a candidate for injectable Invega. Encourage patient to participate in the hospital milieu.
[2019-03-25 18:43] VITALS: BP 114/65
[2019-03-25] MEDS: risperiDONE 1 MG TAB PO SCH (21:23)
[2019-03-26 06:39] VITALS: BP 115/61
[2019-03-26] MEDS: AUGMENTIN 875 MG TAB PO SCH ×2 (09:39→20:34)
[2019-03-26] MEDS: lisinopriL 5 MG TAB PO SCH (09:40)
[2019-03-26 15:51] VITALS: BP 105/74
--- NOTE | 2019-03-26 19:45 | MHIPN ---
DATE: 03/25/2019 VITAL SIGNS: Temperature 97.7, pulse 63, respirations 14, blood pressure 130/63. CURRENT MEDICATIONS: - Risperdal 1 mg twice a day - paliperidone 3 mg at bedtime HISTORY OF PRESENT ILLNESS: The patient has been medication compliant. The patient states the medications help her. She claims that she is motivated to take the medication upon discharge. Her appetite is good. She sleeps well at night. She still isolates a lot in her room, looking up and down the corridor. She does appear guarded. She volunteers to staff that she thinks people are talking about her. The patient states that her brother did come in to visit yesterday. The patient has no other complaints. MENTAL STATUS EXAMINATION: The patient is alert and oriented. The patient's proverb interpretation is concrete. She is not able to perform serial threes. Fund of information is quite limited, for example she thinks that [facility] is the [facility]. The patient recalls only one out of three objects at five minutes. The patient is still guarded and appears paranoid. She denies hearing voices but may be responding to internal stimuli. Insight and judgment appear fair. Grooming and hygiene are marginal. DIAGNOSIS: Psychotic disorder, unspecified. PLAN: Discontinue Invega. Risperdal switched to 3 mg by mouth at bedtime which should help with compliance upon discharge. Encourage involvement in hospital milieu.
[2019-03-26] MEDS: risperiDONE 1 MG TAB PO SCH (20:33)
--- NOTE | 2019-03-27 05:55 | MHIPN ---
DATE OF VISIT: 03/21/2019 VITAL SIGNS: Temperature is 98.1, pulse 81, respirations 14, blood pressure 115/61. CURRENT MEDICATIONS: - Risperdal 3 mg nightly - Augmentin 875 mg twice a day - lisinopril 5 mg daily HISTORY OF PRESENT ILLNESS: The patient continues to report that she is satisfied with her medication. She claims that she will be medication compliant upon discharge. The patient thinks the medication is helping her but she is not able to explain exactly why. Her appetite is good. She reports sleeping better. Her dosages were adjusted over the weekend. The change was well tolerated. She had multiple family members visit over the weekend. The patient has no other complaints. MENTAL STATUS EXAM: The patient is alert and oriented. She is a bit more cooperative. She is a bit more verbal today. Affect is definitely improved. This patient actually smiles for the first time, talking about her family visit. The patient is still guarded and avoiding peers. She denies auditory hallucinations. Insight and judgment appear fair. Grooming and hygiene remain marginal. DIAGNOSIS: Psychotic disorder unspecified, rule out schizophrenia . PLAN: Continue present management. Involve in hospital milieu.
[2019-03-27 06:37] VITALS: BP 155/85
[2019-03-27] MEDS: lisinopriL 5 MG TAB PO SCH (08:04)
[2019-03-27] MEDS: AUGMENTIN 875 MG TAB PO SCH ×2 (08:04→21:23)
[2019-03-27 16:29] VITALS: BP 135/69
--- NOTE | 2019-03-27 20:09 | MHIPN ---
DATE: 03/27/2019 VITAL SIGNS: Temperature 98.1, pulse 104, respirations 12, blood pressure 155/85. CURRENT MEDICATIONS: Risperdal 3 mg at bedtime. HISTORY: The patient has had good medication compliance. He claims he does exercises in the room. The patient still isolates to her room showing signs of paranoia. She denies any current depression. The patient is willing to cooperate with medication compliance upon discharge. She is looking forward to seeing her cat upon discharge. MENTAL STATUS EXAMINATION: The patient is alert and oriented. The patient is somewhat more verbal today. The patient is still guarded. This appears to be a chronic process. She denies hearing any voices. Insight and judgment are fair. Grooming and hygiene somewhat improved. DIAGNOSES: 1. Psychotic disorder, unspecified. 2. Rule out schizophrenia. PLAN: Continue present management. Staff to work on discharge planning and outpatient mental health followup.
[2019-03-27] MEDS: risperiDONE 1 MG TAB PO SCH (21:23)
[2019-03-28 06:35] VITALS: BP 155/80
[2019-03-28 08:02] VITALS: BP 111/69
[2019-03-28] MEDS: lisinopriL 5 MG TAB PO SCH (08:02)
[2019-03-28] MEDS ORDERED: LISI-542 PO (08:55)
[2019-03-28] MEDS ORDERED: RISP3TAB3 PO (08:55)
--- NOTE | 2019-03-29 16:08 | MHDS ---
DATE OF ADMISSION: 03/21/2019 DATE OF DISCHARGE: 03/28/2019 VITAL SIGNS: Temperature 98.1, pulse 72, respirations 14, blood pressure 111/69. LABORATORY DATA: CBC and differential were within normal limits. Chemistry survey was normal except for elevated carbon dioxide at 33. The patient's creatine kinase was elevated at 195. Urine toxicology screen was negative. The patient's urinalysis showed signs of white blood cells and bacteria. DISCHARGE DIAGNOSIS: Psychotic disorder, unspecified. DISCHARGE MEDICATIONS: - Risperdal 3 mg at bedtime - Prinivil 5 mg at bedtime CHIEF COMPLAINT: This is a 58-year-old white female brought to the emergency room by her brother and daughter due to recent changes in behavior. The patient has been very paranoid of late. She has been calling the police frequently, claiming that people were following her. She also showed unusual behavior counting the blocks on the sidewalk. Family states the patient had not been eating well recently. The patient has no prior history psychiatric symptoms. The patient had a neurological workup. Head CT was negative for intracranial bleeds or lesions. The patient did have a urinary tract infection and was started on appropriate medication. PROGRESS ON THE UNIT: The patient was seen by Dr. Calvin and started on Risperdal. The patient tolerated the medication well. She did appear paranoid on the unit. She would stay isolated in her room, looking up and down the hallway. She felt that people were talking about her. Her paranoia gradually improved. She tolerated the Risperdal dosage well. Her appetite was somewhat improved. She slept better at night. She is more socially appropriate though still somewhat guarded. The patient's urinary tract infection resolved as did her cognition. She had initially shown poor insight and was in denial of having a mental illness, though insight did improve to the point where she was cooperative with taking oral medication. She refused a monthly injection. She was agreeable to outpatient mental health followup. The patient's family was contacted prior to her discharge and they felt comfortable with discharge plans. The patient appeared to reach maximal hospital benefit. MENTAL STATUS EXAMINATION: At time of discharge, affect was brighter. The patient smiled at times spontaneously, though she still appeared somewhat guarded. She denied any actual paranoid ideation but may have been covering. She denied hearing any voices. No signs of thought disorder. Insight and judgment appeared fairly good. She was not suicidal, not homicidal. Grooming and hygiene were reasonably good. No overt cognitive deficits at time of discharge. No signs of impulsivity or dangerousness. ASSESSMENT: The patient responded reasonably quickly to Risperdal. The patient appears to have had a late onset psychosis, atypical in nature. PROGNOSIS: Appears good as long as she stays on her psychotropic medications. PLAN: Discharge today to the family and followup in the community.
== END 2019-03-28 14:45 | disposition home or self-care (01) | DRG 751 ==
LOC: M ED 15:44 → MERGE 21:22 → M ED INP 21:22 → M PSY 23:38
PROVIDERS: ADMIT Psychiatry & Neurology Psychiatry; ATTEND Psychiatry & Neurology Psychiatry
DX: F29 Unspecified psychosis not due to a substance or known physiological condition (principal); Z91.013 Allergy to seafood; N39.0 Urinary tract infection, site not specified; B96.29 Other Escherichia coli [E. coli] as the cause of diseases classified elsewhere

== ENCOUNTER → 2019-04-25 | Outpatient (CLI) | payer OTHER ==
[~2019-04-25] MED LIST changes: +LISI-542 PO; +RISP3TAB3 PO
[2019-04-25 14:39] LABS: ALBUMIN 3.4 GM/DL (3.2-5.2); ALT/SGPT 23 U/L (12-78); BILIRUBIN,TOTAL 0.2 MG/DL (0.2-1.0); BLOOD UREA NITROGEN 26 MG/DL (7-18); CALCIUM LEVEL 9.1 MG/DL (8.8-10.2); CARBON DIOXIDE LEVEL 28 MEQ/L (21-32); CHLORIDE LEVEL 106 MEQ/L (98-107); CHOLESTEROL LEVEL 198 MG/DL (<200); CHOLESTEROL RISK RATIO 2.275 (<5); CREATININE FOR GFR 0.71 MG/DL (0.55-1.30); GLOMERULAR FILTRATION RATE > 60.0 (>45); GLUCOSE, FASTING 99 MG/DL (70-100); HDL CHOLESTEROL 87 MG/DL (>40); LDL CHOLESTEROL 101 MG/DL (<100); NON-HDL-C 111 MG/DL; POTASSIUM SERUM 5.1 MEQ/L (3.5-5.1); SODIUM LEVEL 140 MEQ/L (136-145); TOTAL PROTEIN 6.6 GM/DL (6.4-8.2); TRIGLYCERIDES LEVEL 50 MG/DL (<150)
== END ==
LOC: M LAB 13:41 → MERGE 13:41
PROVIDERS: ATTEND Student in an Organized Health Care Education/Training Program
DX: R41.0 Disorientation, unspecified (principal); I10 Essential (primary) hypertension; Z13.1 Encounter for screening for diabetes mellitus; Z13.220 Encounter for screening for lipoid disorders

== ENCOUNTER → 2019-06-14 | Outpatient (CLI) | payer OTHER ==
--- NOTE | 2019-06-14 16:39 | REPMRS ---
Patient History The patient states she has not had a clinical breast exam in over a year. Patient is postmenopausal. No known family history of cancer. No Hormone Replacement Therapy Digital Woman Screen Mammo: June 14, 2019 - Exam #: [id number] Bilateral CC and MLO view(s) were taken. Technologist: Ruma Nieto, Technologist No prior studies available for comparison. FINDINGS: The breast tissue is extremely dense which could obscure a lesion on mammography. There is a fairly symmentric extremely dense fibroglandular pattern in the breast parenchyma. There is no evidence of dominant mass, architectural distortion, or grouped microcalcification typical of malignancy. 3-D tomosynthesis shows no additional findings. Assessment: BI-RADS/ACR category 1 mammogram. Negative Mammogram. Recommendation Routine screening mammogram of both breasts in 1 year (for women over age 40). This patient's Lifetime Breast Cancer RIsk is estimated at 5.7 %. This mammogram was interpreted with the aid of an FDA-approved computer-aided dectection system. Electronically Signed By: Moose Owens MD 06/14/19 [id number]
== END ==
LOC: M WHC 16:04
PROVIDERS: ATTEND Student in an Organized Health Care Education/Training Program
DX: Z12.31 Encounter for screening mammogram for malignant neoplasm of breast (principal)

== ENCOUNTER → 2020-05-07 | Outpatient (REF) | payer OTHER ==
[2020-05-07 18:14] LABS: BASO # 0.1 10^3/uL (0.0-0.2); BASO % 0.8 % (0.0-1.0); EOS # 0.3 10^3/uL (0.0-0.5); EOS % 3.7 % (0.0-3.0); HEMATOCRIT 43.1 % (36.0-47.0); HEMOGLOBIN 13.4 g/dl (12.0-15.5); LYMPH # 1.9 10^3/uL (1.5-5.0); MEAN CORPUSCULAR HEMOGLOBIN 29.6 pg (27.0-33.0); MEAN CORPUSCULAR HGB CONC 31.1 g/dl (32.0-36.5); MEAN CORPUSCULAR VOLUME 95.4 fl (80.0-96.0); MONO # 0.5 10^3/uL (0.0-0.8); MONO % 6.5 % (0.0-5.0); NEUTROPHILS # 5.5 10^3/uL (1.5-8.5); NEUTROPHILS % 65.6 % (36.0-66.0); PLATELET COUNT, AUTOMATED 411 10^3/uL (150-450); RED BLOOD COUNT 4.52 10^6/uL (4.00-5.40); WHITE BLOOD COUNT 8.3 10^3/uL (4.0-10.0)
[2020-05-07 18:25] LABS: ALBUMIN 3.9 GM/DL (3.2-5.2); ALT/SGPT 28 U/L (12-78); BILIRUBIN,TOTAL 0.2 MG/DL (0.2-1.0); BLOOD UREA NITROGEN 10 MG/DL (7-18); CALCIUM LEVEL 9.7 MG/DL (8.8-10.2); CARBON DIOXIDE LEVEL 28 MEQ/L (21-32); CHLORIDE LEVEL 110 MEQ/L (98-107); CHOLESTEROL LEVEL 227 MG/DL (<200); CHOLESTEROL RISK RATIO 3.242 (<5); CREATININE FOR GFR 0.74 MG/DL (0.55-1.30); FREE T4 1.19 NG/DL (0.76-1.46); GLOMERULAR FILTRATION RATE > 60.0 (>45); GLUCOSE, FASTING 90 MG/DL (70-100); HDL CHOLESTEROL 70 MG/DL (>40); LDL CHOLESTEROL 130 MG/DL (<100); NON-HDL-C 157 MG/DL; POTASSIUM SERUM 4.5 MEQ/L (3.5-5.1); SODIUM LEVEL 142 MEQ/L (136-145); THYROID STIMULATING HORMONE 0.617 uIU/ML (0.358-3.740); TOTAL PROTEIN 7.3 GM/DL (6.4-8.2); TRIGLYCERIDES LEVEL 136 MG/DL (<150)
[2020-05-07 18:30] LABS: HEMOGLOBIN A1c 5.5 %
[2020-05-07 18:32] LABS: APPEARANCE, URINE CLEAR (CLEAR); BACTERIA, URINE AUTO NEGATIVE (NEGATIVE); BILIRUBIN, URINE AUTO NEGATIVE (NEGATIVE); BLOOD, URINE BLOOD 1+ (NEGATIVE); COLOR, URINE YELLOW (YELLOW); GLUCOSE, URINE (UA) AUTO NEGATIVE (NEGATIVE); KETONE, URINE AUTO NEGATIVE (NEGATIVE); LEUKOCYTE ESTERASE, URINE AUTO 1+ (NEGATIVE); MUCUS, URINE SMALL (NEGATIVE); NITRITE, URINE AUTO NEGATIVE (NEGATIVE); PROTEIN, URINE AUTO NEGATIVE (NEGATIVE); RBC, URINE AUTO 1 /HPF (0-3); SPECIFIC GRAVITY URINE AUTO 1.014 (1.002-1.035); SQUAMOUS EPITHELIAL CELL UR AU 4 /HPF (0-6); UROBILINOGEN, URINE AUTO 0.2 mg/dL (0.0-2.0); WBC, URINE AUTO 2 /HPF (0-3)
== END ==
LOC: M LAB REF 17:10
PROVIDERS: ATTEND Physician Assistant
DX: R31.9 Hematuria, unspecified (principal)

== ENCOUNTER → 2020-06-11 | Outpatient (REF) | payer OTHER | LOC: M LAB REF 11:42 | PROVIDERS: ATTEND Physician Assistant | DX: Z12.4 Encounter for screening for malignant neoplasm of cervix (principal) ==

== ENCOUNTER 2020-08-12 11:25 | Inpatient (IN) | payer MEDICAID, OTHER ==
[~2020-08-12 11:25] MED LIST changes: +RISP-10 PO; -RISP3TAB3 PO
[2020-08-12 12:10] LABS: HEMATOCRIT 40.8 % (36.0-47.0); MEAN CORPUSCULAR HEMOGLOBIN 29.5 pg (27.0-33.0); MEAN CORPUSCULAR HGB CONC 31.9 g/dl (32.0-36.5); MEAN CORPUSCULAR VOLUME 92.7 fl (80.0-96.0); PLATELET COUNT, AUTOMATED 391 10^3/uL (150-450); WHITE BLOOD COUNT 8.3 10^3/uL (4.0-10.0)
[2020-08-12 12:51] LABS: ACETAMINOPHEN LEVEL < 2.0 UG/ML (10.0-30.0); ALBUMIN 3.8 GM/DL (3.2-5.2); ALT/SGPT 23 U/L (12-78); BILIRUBIN,DIRECT < 0.1 MG/DL (0.0-0.2); BILIRUBIN,TOTAL 0.4 MG/DL (0.2-1.0); BLOOD UREA NITROGEN 16 MG/DL (7-18); CALCIUM LEVEL 9.3 MG/DL (8.8-10.2); CARBON DIOXIDE LEVEL 27 MEQ/L (21-32); CHLORIDE LEVEL 111 MEQ/L (98-107); CREATININE FOR GFR 0.71 MG/DL (0.55-1.30); ETHYL ALCOHOL (ETHANOL) 0.003 % (0.000-0.010); GLOMERULAR FILTRATION RATE > 60.0 (>45); GLUCOSE, FASTING 132 MG/DL (70-100); SODIUM LEVEL 140 MEQ/L (136-145); THYROID STIMULATING HORMONE 0.318 uIU/ML (0.358-3.740); TOTAL PROTEIN 7.3 GM/DL (6.4-8.2)
[2020-08-12 14:21] LABS: AMPHETAMINES LEVEL URINE NEGATIVE (NEGATIVE); BARBITURATES URINE NEGATIVE (NEGATIVE); BENZODIAZEPINES URINE NEGATIVE (NEGATIVE); CANNABINOIDS URINE NEGATIVE (NEGATIVE); COCAINE METABOLITE URINE NEGATIVE (NEGATIVE); METHADONE URINE NEGATIVE (NEGATIVE); OPIATES URINE NEGATIVE (NEGATIVE); PHENCYCLIDINE URINE NEGATIVE (NEGATIVE)
[2020-08-12 17:00] LABS: RSV AMPLIFICATION NEGATIVE (NEGATIVE)
[2020-08-13] MEDS ORDERED: OLANZapine INTRAMUSCULAR 10MG VIAL IM ONE ×2 (02:30→15:15)
[2020-08-13] MEDS ORDERED: LORazepam 2 MG/ML VIAL IM STA (07:10)
[2020-08-13] MEDS ORDERED: LORazepam 2 MG/ML VIAL As Ordered ONE (07:40)
[2020-08-13] MEDS ORDERED: LORazepam 1 MG TAB PO STA (14:48)
[2020-08-13] MEDS ORDERED: LORazepam 2 MG/ML VIAL IM ONE (15:15)
[2020-08-13] MEDS ORDERED: traZODone 50 MG TAB PO PRN (16:30)
[2020-08-13] MEDS ORDERED: MAALOX 30 ML SUSP *UDC PO PRN (16:30)
[2020-08-13] MEDS ORDERED: ACETAMINOPHEN TAB 650MG DOSE (2X325MG) PO PRN (16:30)
[2020-08-13] MEDS ORDERED: MOM 30ML SUSPENSION UDC PO PRN (16:30)
[2020-08-13 20:24] VITALS: BP 146/78
[2020-08-13] MEDS ORDERED: risperiDONE 3 MG TAB PO SCH (21:00)
[2020-08-14] MEDS: lisinopriL 5 MG TAB PO SCH (09:00)
[2020-08-14] MEDS: OLANZapine 5 MG TAB PO SCH ×2 (09:00→21:00)
--- NOTE | 2020-08-14 13:29 | MHHPEPDOC ---
General Date Of Admission: Aug 14, 2020 Legal Status: 9.39 Chief Complaint "I want to be discharged". History of Present Illness HISTORY OF THE PRESENT ILLNESS: Patient is a 59 -year-old , female, who per ED reports, was at [facility] where she was agitated and psychotic, walked into the clinic without an appointment demanding to see her therapist. She was highly agitated, profane & accusatory/paranoid. Patient's senior care specialist was contacted, who reported patient has become so paranoid that she ahd her heat and electricity turned off and does not have adequate food. occupational safety and health manager advised patient be brought to [facility] on a brick picker order. When police arrived, ptient was talking to her son, who had also reported patient had been decompensating. Patient then stated that her son was not her real son and instead was an imposter and reported her grand daughter hasd been kidnapped as well, which her son confirmed was untrue. Per patient, she stated that she was walking by her brother's house, who she hasn't spoken to in over a year, and looked into his house through the window and saw that stuff was missing so went the police station to file a report. She stated that She reported that her brother was supposed to call her to clean out the lower apartment but never called her. She stated that when she got to the police station, the police told her they would send over Maurice O'emilie, her nephew to handle the case and instead a few different police officers arrived, threw her up against the car and then brought her here and she is unsure why. Psychiatric Review of Systems Depression (2 or more weeks): denies (patient is not a reliable historian, guarded and standoffish) Maren (4 or more days of): denies (patient is not a reliable historian, guarded and standoffish) Psychosis: paranoia, denies (patient is not a reliable historian, guarded and standoffish, denies avh but is paranoid) PTSD: denies (patient is not a reliable historian, guarded and standoffish) Anxiety: denies (patient is not a reliable historian, guarded and standoffish) Anxiety/ 6 months or more of: other (patient is not a reliable historian, guarded and standoffish) Past Psychiatric History Previous Psychiatric Diagnosis: pt. denies having any PPH but records indicate she was admitted to [facility] 03/2019 and was discharged with unspecified psychotic disorder. Per previous record in 2019 she was also diagnosed with bipolar disorder but is unsure who gave her the diagnosis Previous Psychiatric Admissions: denies any PPH but records indicate that she was admitted to [facility] 03/2019 Suicide Attempts: denies Psychiatric Follow-up: denies having an outpatient provider Psychiatric medications: denies Past Medical History Medical Problems Denies Head Injury: No Seizures: No Hospitalizations: No Surgeries: No Family Medical/Psychiatric HX Medical Problems She denies any family history - but sates that her father is , would not elaborate on how he . Psychiatric Disorders: No Addiction: No Suicide Attemps/Completions: No Addiction History nicotine (1 ppd ), other (denies any other addiction hisotry) Social History Childhood: Patient reports that she grew up with mother and father and at at least one brother, states "that's all I'm going to tell you, you don't need to know anymore." Per records, she grew up in foster care and with her parents, 7 siblings that were split up in foster care but then were replaced with parents eventually Abuse/Trauma: denies Current Living Situation: She reports she lives in [place] by herself Education: graduated high school, some college Employment: unemployed Social Support: "I have lots of friends." She reports she hasn't spoken to her brother in over a year. Per ED reports, she has a son who she was talking to prior to admission. Legal: denies Marital: single Mental Status Examination General Appearance: ds/not appear stated age (appears older than stated age), hospital scubs/clothing Build: thin Demeanor: hostile, guarded Eye Contact: average Activity: agitated, hostile Behavior: uncooperative, resistant, restless Speech: clear, normal volume, other (stuttering at times ) Mood: euthymic, angry, irritable Affect: congruent, hostile Thought Process: loose, other (delusional - believes she was brought here on different circumstances than [facility] ED reports, see HIPI) Thought Content (Delusions): bizarre, denies SI, HI, AVH, paranoia, delusions (see HPI- believes she was brought here under different circumstances than what ED reports ) Thought Content (Other): guarded, appears paranoid, other (delusional) Thought Content (Aggressive): none reported Perception (Hallucinations): none reported Perception (Other): none reported Cognition (Impairment of): memory (p), ability to abstract Cognition(Intelligence Est.): average Oriented: Awake, Alert, Oriented times three Insight: poor Judgment: Poor Psychosis: Associations, Psychotic Perceptions (delusional) Diagnoses unspecified schizophrenia and other psychotic disorder tobacco use disorder A-FIB/CHADSVASC A-FIB History Current/History of A-Fib/PAF?: No Current PO Anticoag Therapy: No Assessment Leia is a 59 year old single, white female who presented to the Emergency room after ED reports that she was at [facility] where she was agitated and psychotic, walked into the clinic without an appointment demanding to see her therapist. She was highly agitated, profane & accusatory/paranoid. Patient's senior care specialist was contacted, who reported patient has become so paranoid that she had her heat and electricity turned off and does not have adequate food. occupational safety and health manager advised patient be brought to [facility] on a brick picker order. When police arrived, patient was talking to her son, who had also reported patient had been decompensating. Patient then stated that her son was not her real son and ins tead was an imposter and reported her grand daughter had been kidnapped as well, which her son confirmed was untrue. However, per patient, she stated that she was walking by her brother's house, who she hasn't spoken to in over a year, and looked into his house through the window and saw that stuff was missing so went the police station to file a report. She stated that She reported that her brother was supposed to call her to clean out the lower apartment but never called her. She stated that when she got to the police station, the police told her they would send over Christopher O'emilie, her nephew to handle the case and instead a few different police officers arrived, threw her up against the car and then brought her here and she is unsure why. When Leia was approached for the interview, she was in cuevas, refused to eat lunch per staff, stated that someone had poisoned her food by putting something in the bread, demanding discharge, sitting outside city planner's office on the floor. She is walking around, asking staff when she will be discharged, states that she was told she was going to discharge today. When walking down to the office, she states "you are not going to let me out of here are you? You're in on it too." She was sitting in the interview,guarded, maintained eye contact but was very distrustful. She was paranoid and defensive keeps asking why the interview questions are being asked and states that she was not going to tell us information, such as who her pcp was, who her family members are, as she reports multiple times, "you don't need to know this information." She was demanding discharge, states that she wanted a phone to call her straw hat brusher. She was offered a phone to call but stated, "this is a [employer] phone." She said that we have kidnapped her and that is illegal. She does not believe she needs to be here. She became angry was pointing finger and yelling, saying, "I am leaving today" then ended the interview by leaving the office. Initial Treatment Plan 1. Patient was admitted on a [9.39] status. 2. Complete history was obtained. 3. With patients permission, family will be contacted and database will be expanded. 4. Patients medication regimen will be reviewed and changed accordingly. 5. Patient will be provided with protected environment. 6. Patient will be treated with individual, group, and milieu therapies. 7. Patient will receive supportive psych-education. 8. Discharge planning will commence immediately. 9. Outpatient follow-up treatment will be strongly recommended. 10. The initial treatment plan will focus initially on: * altered thoughts 11. WIll continue olanzapine 5 mg po bid ESTIMATED LENGTH OF STAY: 5-7 DAYS. TIME SPENT COUNSELING AND COORDINATING INITIAL CARE: 60 minutes. Vital Signs Vital Signs Date Time Temp Pulse Resp B/P (MAP) Pulse Ox O2 Delivery O2 Flow Rate FiO2 08/14/20 09:58 Room Air 08/13/20 20:24 97.0 74 16 146/78 (100) 100 Allergies Coded Allergies: SEAFOOD (Unverified Allergy, Severe, THROAT SWELLING, 08/19/04) Bleach (Sodium Hypochlorite) (Verified Allergy, Intermediate, RASH, 05/24/19) Iodine and Iodide Containing Produc (Verified Allergy, Unknown, 03/06/19) shellfish derived (Verified Allergy, Unknown, 05/24/19) MARCUS DEAL NP Aug 14, 2020 12:59
[2020-08-15 05:56] VITALS: BP 138/90
[2020-08-15 06:52] VITALS: BP 138/90
[2020-08-15] MEDS: OLANZapine 5 MG TAB PO SCH ×2 (09:00→20:57)
[2020-08-15] MEDS: lisinopriL 5 MG TAB PO SCH (09:00)
--- NOTE | 2020-08-15 11:47 | MHIPNPDOC ---
[facility] Progress Note Progress Note DATE OF SERVICE: 08/15/20 HISTORY: : Patient is a 59 -year-old , female, who per ED reports, was at [facility] where she was agitated and psychotic, walked into the clinic without an appointment demanding to see her therapist. She was highly agitated, profane & accusatory/paranoid. Patient's intensive care specialist was contacted, who reported patient has become so paranoid that she had her heat and electricity turned off and does not have adequate food. er manager advised patient be brought to [facility] on a order picker order. When police arrived, ptient was talking to her son, who had also reported patient had been decompensating. Patient then stated that her son was not her real son and instead was an imposter and reported her grand daughter has been kidnapped as well, which her son confirmed was untrue. Per patient, she stated that she was walking by her brother's house, who she hasn't spoken to in over a year, and looked into his house through the window and saw that stuff was missing so went the police station to file a report. She stated that She reported that her brother was supposed to call her to clean out the lower apartment but never called her. She stated that when she got to the police station, the police told her they would send over Maurice Tatamy, her nephew to handle the case and instead a few different police officers arrived, threw her up against the car and then brought her here and she is unsure why. VITAL SIGNS: See below. NEW TEST RESULTS: CURRENT MEDICATIONS: See below. MENTAL STATUS EXAMINATION: Patient is a 59-year old Single, Disabled, Domiciled, Female, who was brought to the ED for bizarre behaviors. Patient is dressed in hospital scrubs, has hypervigilant stare, is seen in the hallway talking very loudly demanding to be discharged and reporting that she cannot be held here. "I am being kidnapped! You cannot hold me here!" Patient is pacing the floors angrily demanding that she be released from the unit. She continues to be paranoid, agitated, and hostile. General Appearance: ds/not appear stated age (appears older than stated age), hospital scrubs/clothing Build: thin Demeanor: hostile, guarded Eye Contact: average Activity: agitated, hostile Behavior: uncooperative, resistant, restless Speech: clear, normal volume, other (stuttering at times ) Mood: euthymic, angry, irritable Affect: congruent, hostile Thought Process: loose, other (delusional - believes she was brought here on different circumstances than [facility] ED reports, see HIPI) Thought Content (Delusions): bizarre, denies SI, HI, AVH, paranoia, delusions (see HPI- believes she was brought here under different circumstances than what ED reports ) Thought Content (Other): guarded, appears paranoid, other (delusional) Thought Content (Aggressive): none reported, observed to be agitated, irritable Perception (Hallucinations): patient is paranoid and will not discuss mental illness Perception (Other): none reported Cognition (Impairment of): memory (p), ability to abstract Cognition(Intelligence Est.): average Oriented: Awake, Alert, Oriented times three Insight: poor Judgment: Poor Psychosis: Psychotic Perceptions (delusional) DIAGNOSES: Unspecified schizophrenia and other psychotic disorder Tobacco use disorder ASSESSMENT: Patient continues to have poor insight and poor judgment. She is paranoid and very guarded. She will not answer questions appropriately or not at all. She refuses medications states that "You are just trying to poison me." She resuses to engage in meaningful conversation, accusing staff of poisoning her. Patient was oftentimes very aggressive in the interview, standing over this provider and pointing her finger stating "I am leaving here, I want my clothes, you just want to poison me!" Patient left the room abruptly and stated she would not speak with me when I reinforced that she would not be discharged today. MANAGEMENT PLAN: Continue all medications, continue all close observations as ordered, will discharge when she is stable TIME SPENT: 25 minutes. Vital Signs Vital Signs Date Time Temp Pulse Resp B/P (MAP) Pulse Ox O2 Delivery O2 Flow Rate FiO2 08/15/20 08:11 Room Air 08/15/20 06:52 97.4 88 20 138/90 (106) 100 Current Medications Current Medications Medications (Trade) Dose Ordered Sig/Rufina Route PRN Reason Start Time Stop Time Status Last Admin Dose Admin Acetaminophen (Tylenol Tab) 650 mg Q6HP PRN PO HEADACHE or DISCOMFORT 08/13/20 16:30 Al Hydrox/Mg Hydrox/Simethicone (Mylanta) 30 ml Q4HP PRN PO HEARTBURN/INDIGESTION 08/13/20 16:30 Hydroxyzine HCl (Atarax) 10 mg BIDP PRN PO ANXIETY 08/13/20 16:30 Lisinopril (Prinivil) 5 mg DAILY PO 08/14/20 09:00 Lorazepam (Ativan) 1 mg STAT STAT IM 08/13/20 07:10 08/13/20 07:11 DC 08/13/20 07:56 Lorazepam (Ativan) 1 mg STAT STAT PO 08/13/20 14:48 08/13/20 14:49 DC Magnesium Hydroxide (Milk Of Magnesia) 30 ml DAILYPRN PRN PO CONSTIPATION 08/13/20 16:30 Olanzapine (ZyPREXA) 5 mg BID PO 08/14/20 09:00 Risperidone (RisperDAL) 3 mg QHS PO 08/13/20 21:00 08/14/20 09:00 DC Trazodone HCl (Desyrel) 50 mg QHSP PRN PO INSOMNIA 08/13/20 16:30 Allergies Coded Allergies: SEAFOOD (Unverified Allergy, Severe, THROAT SWELLING, 08/19/04) Bleach (Sodium Hypochlorite) (Verified Allergy, Intermediate, RASH, 05/24/19) Iodine and Iodide Containing Produc (Verified Allergy, Unknown, 03/06/19) shellfish derived (Verified Allergy, Unknown, 05/24/19) MARCUS DEAL NP Aug 15, 2020 11:47
--- NOTE | 2020-08-15 14:35 | HPEPDOC ---
[facility] Medical History & Physical Date of Admission Aug 13, 2020 Date of Service: Aug 15, 2020 History and Physical CHIEF COMPLAINT: Admitted to inpatient at the health unit for paranoia HISTORY OF PRESENT ILLNESS: 59-year-old female with past psychiatric history is admitted to inpatient mental health unit for paranoia. Patient is severely paranoid at this time, believes that people are trying to hurt her, will not even go to the examination room for H&P. She was only willing to speak with me in the hallway, had a brief discussion with her in the hallway. She is very guarded, not forthcoming with any information, denies any prior medical or psychiatric history, denies taking any medication at this time. She wishes to go home, no complaints at this time. PAST MEDICAL HISTORY: 1. None as per patient. PAST SURGICAL HISTORY: 1. None as per patient. SOCIAL HISTORY: Denies drug use. Reports 2-3 cigarettes per day. Denies alcohol use FAMILY HISTORY: Refuses to provide ALLERGIES: Please see below. REVIEW OF SYSTEMS: 10 point review of system is negative except for above HOME MEDICATIONS: Please see below. PHYSICAL EXAMINATION: Patient refused to be examined LABORATORY DATA: See below. ASSESSMENT: 59-year-old female is admitted to inpatient mental health unit for severe paranoia, noncompliant with medical H&P. PLAN: 1. Severe paranoia. Management as per primary team 2. Hypertension. Patient refuses any prior medical history, hypertensive throughout hospitalization, on lisinopril at home Continue lisinopril, assuming patient is compliant. If patient's blood pressure remains elevated with good compliance, then we will adjust the dose. Hospitalist service will sign off at this time, please reconsult if needed. Vital Signs Vital Signs Date Time Temp Pulse Resp B/P (MAP) Pulse Ox O2 Delivery O2 Flow Rate FiO2 08/15/20 08:11 Room Air 08/15/20 06:52 97.4 88 20 138/90 (106) 100 Allergies Coded Allergies: SEAFOOD (Unverified Allergy, Severe, THROAT SWELLING, 08/19/04) Bleach (Sodium Hypochlorite) (Verified Allergy, Intermediate, RASH, 05/24/19) Iodine and Iodide Containing Produc (Verified Allergy, Unknown, 03/06/19) shellfish derived (Verified Allergy, Unknown, 10/17/19) A-FIB/CHADSVASC A-FIB History Current/History of A-Fib/PAF?: No JULIUS NAVA MD Aug 15, 2020 14:35
[2020-08-16] VITALS (9 sets, daily range): BP systolic 86–184; BP diastolic 50–87
[2020-08-16] MEDS ORDERED: LORazepam 2 MG/ML VIAL IM STA (01:31)
[2020-08-16] MEDS ORDERED: diphenhydrAMINE 50MG/ML VIAL (J1200) IM STA (01:31)
[2020-08-16] MEDS ORDERED: HALOPERIDOL 5MG/ML VIAL (J1630 PER 1) IM STA (01:31)
[2020-08-16] MEDS: lisinopriL 5 MG TAB PO SCH (09:00)
[2020-08-16] MEDS: OLANZapine 5 MG TAB PO SCH ×2 (09:00→15:07)
[2020-08-16] MEDS: hydrOXYzine 10 MG TAB PO PRN (15:07)
--- NOTE | 2020-08-16 17:38 | MHIPN ---
[facility] PROGRESS NOTE DATE: 08/16/2020 The patient last night became aggressive. Was trying to run out of the unit, and we had to use both pharmacological and physical restraints on the patient. Today she is pretty angry. She tells me that she wants to be discharged, that there is no reason for her to be in the unit. MENTAL STATUS EXAMINATION: This patient is alert and oriented times three. Eye contact is fair. Psychomotor activity is increased because she is a bit agitated. Speech is pressured. Mood is angry. Affect labile. She continues to be paranoid. Concentration is poor. Insight and judgment are poor. DIAGNOSIS: Unspecified schizophrenia and other psychotic disorder. TREATMENT PLAN: At this point we will continue to monitor the patient as indicated for her psychotic symptoms and aggressive behavior, and we will continue to titrate her medications as indicated.
[2020-08-17 06:26] VITALS: BP 148/84
[2020-08-17 09:00] VITALS: BP 148/84
[2020-08-17] MEDS: OLANZapine 5 MG TAB PO SCH ×3 (09:00→21:00)
[2020-08-17] MEDS: lisinopriL 5 MG TAB PO SCH ×2 (09:00→09:15)
[2020-08-17] MEDS: hydrOXYzine 10 MG TAB PO PRN (09:16)
--- NOTE | 2020-08-17 09:47 | WAPSY-ES ---
[facility] POST-RESTRAINT NOTE DATE OF EXAM: 08/16/2020 DATE OF RESTRAINT: 08/15/2020 The patient had both physical and chemical restraints. She became very agitated, was trying to run out of the unit, and staff had to use other possible means to try to calm the patient down without any success. She was given Haldol 10 mg, Benadryl 50 mg, and Ativan 2 mg IM. Today when I saw the patient, she was calm. This patient, however, is very psychotic and has no insight about her illness and so, she became somewhat agitated because she wanted to know why I was not discharging her home; but she did not escalate to the point where she had to be restrained this time and was able to remain in control. So, I felt that the restraints were appropriate and effective when used yesterday, and I did not feel that this patient had any bad effects from the restraints, and we will continue her current treatment.
[2020-08-17 16:08] VITALS: BP 143/74
[2020-08-18 06:54] VITALS: BP 179/98
[2020-08-18] MEDS: OLANZapine 5 MG TAB PO SCH ×2 (09:00→21:00)
[2020-08-18] MEDS: lisinopriL 5 MG TAB PO SCH (09:00)
--- NOTE | 2020-08-18 12:24 | MHIPNPDOC ---
[facility] Progress Note Progress Note DATE OF SERVICE: 08/18/20 HISTORY: : Patient is a 59 -year-old , female, who per ED reports, was at [facility] where she was agitated and psychotic, walked into the clinic without an appointment demanding to see her therapist. She was highly agitated, profane & accusatory/paranoid. Patient's care consultant was contacted, who reported patient has become so paranoid that she had her heat and electricity turned off and does not have adequate food. training and development manager advised patient be brought to [facility] on a cook pickled meat order. When police arrived, ptient was talking to her son, who had also reported patient had been decompensating. Patient then stated that her son was not her real son and instead was an imposter and reported her grand daughter has been kidnapped as well, which her son confirmed was untrue. Per patient, she stated that she was walking by her brother's house, who she hasn't spoken to in over a year, and looked into his house through the window and saw that stuff was missing so went the police station to file a report. She stated that She reported that her brother was supposed to call her to clean out the lower apartment but never called her. She stated that when she got to the police station, the police told her they would send over Maurice [place], her nephew to handle the case and instead a few different police officers arrived, threw her up against the car and then brought her here and she is unsure why. VITAL SIGNS: See below. NEW TEST RESULTS: CURRENT MEDICATIONS: See below. MENTAL STATUS EXAMINATION: Patient is a 59-year old Single, Disabled, Domiciled, Female, who was brought to the ED for bizarre behaviors. Patient has very masculine features and voice, is dressed in layered clothing, has hospital scrubs under her personal clothing. She has hypervigilant stare, staring down staff in the nurses station and in the hallways, is seen in the hallway, talking very loudly, yelling profanities and demanding discharge. She is hovering around door to interview during treatment team this morning, appears paranoid and suspicious. She is pacing floors, stomping at times, remains angry, paranoid, agitated, and hostile. General Appearance: ds/not appear stated age (appears older than stated age), hospital scrubs/clothing Build: thin Demeanor: hostile, guarded Eye Contact: average Activity: agitated, hostile Behavior: uncooperative, resistant, restless Speech: clear, normal volume, other (stuttering at times ) Mood: euthymic, angry, irritable Affect: congruent, hostile Thought Process: loose, other (delusional - believes she was brought here on different circumstances than [facility] ED reports, see HIPI) Thought Content (Delusions): bizarre, denies SI, HI, AVH, paranoia, delusions (see HPI- believes she was brought here under different circumstances than what ED reports ) Thought Content (Other): guarded, appears paranoid, other (delusional) Thought Content (Aggressive): none reported, observed to be agitated, irritable Perception (Hallucinations): patient is paranoid and will not discuss mental i llness Perception (Other): none reported Cognition (Impairment of): memory (p), ability to abstract Cognition(Intelligence Est.): average Oriented: Awake, Alert, Oriented times two (believes she has been here for 2 months) Insight: poor Judgment: Poor Psychosis: Psychotic Perceptions (delusional) DIAGNOSES: Unspecified schizophrenia and other psychotic disorder Tobacco use disorder ASSESSMENT: Patient continues to have poor insight and poor judgment, remains paranoid, guarded, and defensive. She reports that she needs to be discharged because she has lost her apartment and is now homeless. 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 She reported that at this job, they teach you how to drive a truck then set you up with a job after. She reports she has not signed any releases and does not plan to, as she lives alone. She states she doesn't have a rehabilitation case coordinator (records indicated she does) and that she only has a daughter but does not give us permission to speak to her. she has only taken a few doses of her prescribed medications according to the MAR and when encouraged to take them, she becomes irritable and reports that she has been here for 2 months. She was reminded she was only here for 5 days. Karla then pulled out her meal menus that were crumpled up in her pocket and showed them to this group underwriter, stating "no, see, I have been here for two months, this is the menu from the emergency room!" She then got up and left interview abruptly, pointing fingers at this group underwriter, stating, "you can't keep me here, I'm going to call her assistant corporate secretary!" MANAGEMENT PLAN: Continue all medications, continue all close observations as ordered, will discharge when she is stable Vital Signs Vital Signs Date Time Temp Pulse Resp B/P (MAP) Pulse Ox O2 Delivery O2 Flow Rate FiO2 08/18/20 06:54 97.4 91 18 179/98 (125) 98 Room Air Current Medications Current Medications Medications (Trade) Dose Ordered Sig/Rufina Route PRN Reason Start Time Stop Time Status Last Admin Dose Admin Acetaminophen (Tylenol Tab) 650 mg Q6HP PRN PO HEADACHE or DISCOMFORT 08/13/20 16:30 Al Hydrox/Mg Hydrox/Simethicone (Mylanta) 30 ml Q4HP PRN PO HEARTBURN/INDIGESTION 08/13/20 16:30 Diphenhydramine HCl (Benadryl) 50 mg STAT STAT IM 08/16/20 01:31 08/16/20 01:34 DC 08/16/20 01:43 Haloperidol (Haldol) 10 mg STAT STAT IM 08/16/20 01:31 08/16/20 01:34 DC 08/16/20 01:43 Hydroxyzine HCl (Atarax) 10 mg BIDP PRN PO ANXIETY 08/13/20 16:30 08/16/20 15:07 Lisinopril (Prinivil) 5 mg DAILY PO 08/14/20 09:00 Lorazepam (Ativan) 1 mg STAT STAT IM 08/13/20 07:10 08/13/20 07:11 DC 08/13/20 07:56 Lorazepam (Ativan) 1 mg STAT STAT PO 08/13/20 14:48 08/13/20 14:49 DC Lorazepam (Ativan) 2 mg STAT STAT IM 08/16/20 01:31 08/16/20 01:34 DC 08/16/20 01:44 Magnesium Hydroxide (Milk Of Magnesia) 30 ml DAILYPRN PRN PO CONSTIPATION 08/13/20 16:30 Olanzapine (ZyPREXA) 5 mg BID PO 08/14/20 09:00 08/16/20 15:07 Risperidone (RisperDAL) 3 mg QHS PO 08/13/20 21:00 08/14/20 09:00 DC Trazodone HCl (Desyrel) 50 mg QHSP PRN PO INSOMNIA 08/13/20 16:30 Allergies Coded Allergies: SEAFOOD (Unverified Allergy, Severe, THROAT SWELLING, 08/19/04) Bleach (Sodium Hypochlorite) (Verified Allergy, Intermediate, RASH, 05/24/19) Iodine and Iodide Containing Produc (Verified Allergy, Unknown, 03/06/19) shellfish derived (Verified Allergy, Unknown, 05/24/19) MARCUS DEAL NP Aug 18, 2020 12:24
[2020-08-18 17:48] VITALS: BP 138/84
[2020-08-19] MEDS: lisinopriL 5 MG TAB PO SCH (09:00)
[2020-08-19] MEDS: OLANZapine 5 MG TAB PO SCH ×2 (09:00→21:00)
--- NOTE | 2020-08-19 15:03 | MHIPNPDOC ---
[facility] Progress Note Progress Note DATE OF SERVICE: 08/16/20 HISTORY: : Patient is a 59 -year-old , female, who per ED reports, was at [facility] where she was agitated and psychotic, walked into the clinic without an appointment demanding to see her therapist. She was highly agitated, profane & accusatory/paranoid. Patient's hospice care consultant was contacted, who reported patient has become so paranoid that she had her heat and electricity turned off and does not have adequate food. craft manager advised patient be brought to [facility] on a meat pickler order. When police arrived, patient was talking to her son, who had also reported patient had been decompensating. Patient then stated that her son was not her real son and instead was an imposter and reported her grand daughter has been kidnapped as well, which her son confirmed was untrue. Per patient, she stated that she was walking by her brother's house, who she hasn't spoken to in over a year, and looked into his house through the window and saw that stuff was missing so went the police station to file a report. She stated that She reported that her brother was supposed to call her to clean out the lower apartment but never called her. She stated that when she got to the police station, the police told her they would send over Maurice [place], her nephew to handle the case and instead a few different police officers arrived, threw her up against the car and then brought her here and she is unsure why. VITAL SIGNS: See below. NEW TEST RESULTS: CURRENT MEDICATIONS: See below. MENTAL STATUS EXAMINATION: Patient is a 59-year old Single, Disabled, Domiciled, Female, who was brought to the ED for bizarre behaviors when she arrived at [facility] demanding to see a therapist. Patient is dressed in personal clothing over top of hospital scrubs, is seen in the hallway pacing the floors, maintaining a hypervigilant stare, demanding to be discharged on and off to different staff members. She con tinues to be paranoid, agitated, and hostile, refusing 2 breakfast trays because she believed that staff was poisoning them. General Appearance: does not appear stated age (appears older than stated age), hospital scrubs/clothing, masculine facial features and voice Build: thin Demeanor: hostile, guarded Eye Contact: average Activity: agitated, hostile Behavior: uncooperative, resistant, restless Speech: clear, normal volume, other (stuttering at times ) Mood: euthymic, angry, irritable Affect: congruent, hostile Thought Process: loose, other (delusional - believes she was brought here on different circumstances than what ED reports, see H&P) Thought Content (Delusions): bizarre, denies SI, HI, AVH, paranoia, delusions (see HPI- believes she was brought here under different circumstances than what ED reports ) Thought Content (Other): guarded, appears paranoid, other (delusional) Thought Content (Aggressive): none reported, observed to be agitated, irritable Perception (Hallucinations): patient is paranoid and will not discuss mental illness Perception (Other): none reported Cognition (Impairment of): memory (p), ability to abstract Cognition(Intelligence Est.): average Oriented: Awake, Alert, Oriented times three Insight: poor Judgment: Poor Psychosis: Psychotic Perceptions (delusional) DIAGNOSES: Unspecified schizophrenia and other psychotic disorder Tobacco use disorder ASSESSMENT: Patient continues to have poor insight and poor judgment. She is paranoid and very guarded and at times during the interview, is aggressive and hostile. She will not answer questions appropriately or not at all and continues to refuse medications states "I don't need medication. My doctor is at an outside clinic and he says I don't need to take any medications." She does reports that her pcp is at [facility]. She continues to accuse staff of poisoning her. It was discussed that if she continues to refuse her medication here, the treatment team will be planning on setting up a court hearing. 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 MANAGEMENT PLAN: Continue all medications, continue all close observations as ordered, will discharge when she is stable TIME SPENT: 25 minutes Vital Signs Vital Signs Date Time Temp Pulse Resp B/P (MAP) Pulse Ox O2 Delivery O2 Flow Rate FiO2 08/18/20 17:48 98.9 74 18 138/84 (102) 98 Room Air Current Medications Current Medications Medications (Trade) Dose Ordered Sig/Rufina Route PRN Reason Start Time Stop Time Status Last Admin Dose Admin Acetaminophen (Tylenol Tab) 650 mg Q6HP PRN PO HEADACHE or DISCOMFORT 08/13/20 16:30 Al Hydrox/Mg Hydrox/Simethicone (Mylanta) 30 ml Q4HP PRN PO HEARTBURN/INDIGESTION 08/13/20 16:30 Diphenhydramine HCl (Benadryl) 50 mg STAT STAT IM 08/16/20 01:31 08/16/20 01:34 DC 08/16/20 01:43 Haloperidol (Haldol) 10 mg STAT STAT IM 08/16/20 01:31 08/16/20 01:34 DC 08/16/20 01:43 Hydroxyzine HCl (Atarax) 10 mg BIDP PRN PO ANXIETY 08/13/20 16:30 08/16/20 15:07 Lisinopril (Prinivil) 5 mg DAILY PO 08/14/20 09:00 Lorazepam (Ativan) 1 mg STAT STAT IM 08/13/20 07:10 08/13/20 07:11 DC 08/13/20 07:56 Lorazepam (Ativan) 1 mg STAT STAT PO 08/13/20 14:48 08/13/20 14:49 DC Lorazepam (Ativan) 2 mg STAT STAT IM 08/16/20 01:31 08/16/20 01:34 DC 08/16/20 01:44 Magnesium Hydroxide (Milk Of Magnesia) 30 ml DAILYPRN PRN PO CONSTIPATION 08/13/20 16:30 Olanzapine (ZyPREXA) 5 mg BID PO 08/14/20 09:00 08/16/20 15:07 Risperidone (RisperDAL) 3 mg QHS PO 08/13/20 21:00 08/14/20 09:00 DC Trazodone HCl (Desyrel) 50 mg QHSP PRN PO INSOMNIA 08/13/20 16:30 Allergies Coded Allergies: SEAFOOD (Unverified Allergy, Severe, THROAT SWELLING, 1/12/05) Bleach (Sodium Hypochlorite) (Verified Allergy, Intermediate, RASH, 05/24/19) Iodine and Iodide Containing Produc (Verified Allergy, Unknown, 03/06/19) shellfish derived (Verified Allergy, Unknown, 05/24/19) MARCUS DEAL NP Aug 19, 2020 13:14
[2020-08-20] MEDS: hydrOXYzine 10 MG TAB PO PRN (06:45)
[2020-08-20] MEDS: lisinopriL 5 MG TAB PO SCH (09:00)
[2020-08-20] MEDS: OLANZapine 5 MG TAB PO SCH ×2 (09:00→21:00)
--- NOTE | 2020-08-20 10:53 | MHIPN ---
PSYCHIATRIC PROGRESS NOTE DATE: 08/17/20 HISTORY OF PRESENT ILLNESS: The patient today states that she wants me to discharge her and that all that she is willing to talk about and she got increasingly agitated and angry because I advised her that I did not think she was appropriate for discharge. MENTAL STATUS EXAM: I was not able to do a full mental status exam because basically the only thing the patient wanted to talk about was that she wanted to be discharged. I suspect that she is still pretty paranoid. Her insight and judgment definitely is poor. DIAGNOSES: 1. Unspecified schizophrenia. 2. Other psychotic disorder. TREATMENT PLAN: We will continue to monitor this patient for paranoid symptoms and to titrate her medications as indicated. The patient has not been compliant with taking her medications.
--- NOTE | 2020-08-20 12:48 | MHIPNPDOC ---
[facility] Progress Note Progress Note DATE OF SERVICE: 08/20/20 HISTORY: : Patient is a 59 -year-old , female, who per ED reports, was at [facility] where she was agitated and psychotic, walked into the clinic without an appointment demanding to see her therapist. She was highly agitated, profane & accusatory/paranoid. Patient's pediatric critical care nurse was contacted, who reported patient has become so paranoid that she had her heat and electricity turned off and does not have adequate food. physical plant manager advised patient be brought to [facility] on a pick up operator order. When police arrived, patient was talking to her son, who had also reported patient had been decompensating. Patient then stated that her son was not her real son and instead was an imposter and reported her grand daughter has been kidnapped as well, which her son confirmed was untrue. Per patient, she stated that she was walking by her brother's house, who she hasn't spoken to in over a year, and looked into his house through the window and saw that stuff was missing so went the police station to file a report. She stated that She reported that her brother was supposed to call her to clean out the lower apartment but never called her. She stated that when she got to the police station, the police told her they would send over Maurice [place], her nephew to handle the case and instead a few different police officers arrived, threw her up against the car and then brought her here and she is unsure why. VITAL SIGNS: See below. NEW TEST RESULTS: CURRENT MEDICATIONS: See below. MENTAL STATUS EXAMINATION: Patient is a 59-year old Single, Disabled, Domiciled, Female, who was brought to the ED for bizarre behaviors when she arrived at [facility] demanding to see a therapist. Patient is dressed in personal clothing layered over top of hospital scrubs, is seen in the hallway pacing the floors, maintaining a hypervigilant stare, demanding to be discharged on and off to different staff members. She continues to be paranoid, agitated, and hostile, muttering to herself and yelling at staff for various reasons. She has been trying to elope from the unit and was looking for the doorbell, accused staff of removing the doorbell. She was redirected by staff away from the door and was observed to be crawling on the floor at one point in order to try and get to the door to get out. General Appearance: does not appear stated age (appears older than stated age), hospital scrubs/clothing, masculine facial features and voice Build: thin Demeanor: hostile, guarded Eye Contact: average Activity: agitated, hostile Behavior: uncooperative, resistant, restless Speech: clear, normal volume, other (stuttering at times ) Mood: euthymic, angry, irritable Affect: congruent, hostile Thought Process: loose, other (delusional - believes she was brought here on different circumstances than what ED reports, see H&P) Thought Content (Delusions): bizarre, denies SI, HI, AVH, paranoia, delusions (see HPI- believes she was brought here under different circumstances than what ED reports ) Thought Content (Other): guarded, appears paranoid, other (delusional) Thought Content (Aggressive): none reported, observed to be agitated, irritable Perception (Hallucinations): patient is paranoid and will not discuss mental illness Perception (Other): none reported Cognition (Impairment of): memory (p), ability to abstract Cognition(Intelligence Est.): average Oriented: Awake, Alert, Oriented tp person place, believes she has been here 2 months Insight: poor Judgment: Poor Psychosis: Psychotic Perceptions (delusional) DIAGNOSES: Unspecified schizophrenia and other psychotic disorder Tobacco use disorder ASSESSMENT: Patient continues to have poor insight and poor judgment. She is paranoid and very guarded and at times during the interview, is aggressive and hostile. She will not answer questions appropriately or not at all and continues to refuse medications. She was ordered a UA and was paranoid as to why this test was ordered. It was explained that we were looking for a urinary tract infection. She then stated "I want cigarettes. I want to leave. 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 She states "I'm gonna lose my home because you're not discharging me!" She states that she doesn't trust this hospital and accuse staff of feeding her rotten food. Again, she was asked to cooperate for a UA, to which she replied "the only test I need is a lie detector test, which I'm going to pass." She reports the lie detector test is to prove that her son is an imposter. She states, "you think I'm lying, that's why I don't owe you any urine." She then abruptly left the interview and slammed the door. Management plan Continue all medications Convert 2 pc pursue retention and TOO Time spent 25 minutes Vital Signs Vital Signs Date Time Temp Pulse Resp B/P (MAP) Pulse Ox O2 Delivery O2 Flow Rate FiO2 08/20/20 06:29 97.6 98 20 99 Room Air 08/18/20 17:48 138/84 (102) Current Medications Current Medications Medications (Trade) Dose Ordered Sig/Rufina Route PRN Reason Start Time Stop Time Status Last Admin Dose Admin Acetaminophen (Tylenol Tab) 650 mg Q6HP PRN PO HEADACHE or DISCOMFORT 08/13/20 16:30 Al Hydrox/Mg Hydrox/Simethicone (Mylanta) 30 ml Q4HP PRN PO HEARTBURN/INDIGESTION 08/13/20 16:30 Diphenhydramine HCl (Benadryl) 50 mg STAT STAT IM 08/16/20 01:31 08/16/20 01:34 DC 08/16/20 01:43 Haloperidol (Haldol) 10 mg STAT STAT IM 08/16/20 01:31 08/16/20 01:34 DC 08/16/20 01:43 Hydroxyzine HCl (Atarax) 10 mg BIDP PRN PO ANXIETY 08/13/20 16:30 08/20/20 06:45 Lisinopril (Prinivil) 5 mg DAILY PO 08/14/20 09:00 Lorazepam (Ativan) 1 mg STAT STAT IM 08/13/20 07:10 08/13/20 07:11 DC 08/13/20 07:56 Lorazepam (Ativan) 1 mg STAT STAT PO 08/13/20 14:48 08/13/20 14:49 DC Lorazepam (Ativan) 2 mg STAT STAT IM 08/16/20 01:31 08/16/20 01:34 DC 08/16/20 01:44 Magnesium Hydroxide (Milk Of Magnesia) 30 ml DAILYPRN PRN PO CONSTIPATION 08/13/20 16:30 Olanzapine (ZyPREXA) 5 mg BID PO 08/14/20 09:00 08/16/20 15:07 Risperidone (RisperDAL) 3 mg QHS PO 08/13/20 21:00 08/14/20 09:00 DC Trazodone HCl (Desyrel) 50 mg QHSP PRN PO INSOMNIA 08/13/20 16:30 Allergies Coded Allergies: SEAFOOD (Unverified Allergy, Severe, THROAT SWELLING, 08/19/04) Bleach (Sodium Hypochlorite) (Verified Allergy, Intermediate, RASH, 05/24/19) Iodine and Iodide Containing Produc (Verified Allergy, Unknown, 03/06/19) shellfish derived (Verified Allergy, Unknown, 05/24/19) MARCUS DEAL NP Aug 20, 2020 12:48
[2020-08-20 17:54] VITALS: BP 128/86
[2020-08-20 17:56] VITALS: BP 172/97
[2020-08-21 06:00] VITALS: BP 157/94
[2020-08-21] MEDS ORDERED: LORazepam 2 MG/ML VIAL As Ordered ONE (06:33)
[2020-08-21] MEDS ORDERED: HALOPERIDOL 5MG/ML VIAL (J1630 PER 1) As Ordered ONE (06:34)
[2020-08-21] MEDS ORDERED: diphenhydrAMINE 50MG/ML VIAL (J1200) As Ordered ONE (06:36)
[2020-08-21] MEDS ORDERED: HALOPERIDOL 5MG/ML VIAL (J1630 PER 1) IM STA (06:38)
[2020-08-21] MEDS ORDERED: diphenhydrAMINE 50MG/ML VIAL (J1200) IM STA (06:38)
[2020-08-21] MEDS ORDERED: LORazepam 2 MG/ML VIAL IM STA (06:38)
[2020-08-21 07:00] VITALS: BP 157/94
[2020-08-21 07:15] VITALS: BP 150/80
[2020-08-21 07:30] VITALS: BP 140/70
[2020-08-21 08:04] VITALS: BP 105/63
[2020-08-21] MEDS: OLANZapine 5 MG TAB PO SCH ×2 (09:00→21:00)
[2020-08-21] MEDS: lisinopriL 5 MG TAB PO SCH (09:00)
--- NOTE | 2020-08-21 15:45 | MHIPNPDOC ---
[facility] Progress Note Progress Note DATE OF SERVICE: 08/21/20 HISTORY: : Patient is a 59 -year-old , female, who per ED reports, was at [facility] where she was agitated and psychotic, walked into the clinic without an appointment demanding to see her therapist. She was highly agitated, profane & accusatory/paranoid. Patient's before and after school daycare worker was contacted, who reported patient has become so paranoid that she had her heat and electricity turned off and does not have adequate food. manager data center advised patient be brought to [facility] on a machine pecan picker order. When police arrived, patient was talking to her son, who had also reported patient had been decompensating. Patient then stated that her son was not her real son and instead was an imposter and reported her grand daughter has been kidnapped as well, which her son confirmed was untrue. Per patient, she stated that she was walking by her brother's house, who she hasn't spoken to in over a year, and looked into his house through the window and saw that stuff was missing so went the police station to file a report. She stated that She reported that her brother was supposed to call her to clean out the lower apartment but never called her. She stated that when she got to the police station, the police told her they would send over Maurice [place], her nephew to handle the case and instead a few different police officers arrived, threw her up against the car and then brought her here and she is unsure why. VITAL SIGNS: See below. NEW TEST RESULTS: CURRENT MEDICATIONS: See below. MENTAL STATUS EXAMINATION: Patient is a 59-year old Single, Disabled, Domiciled, Female, who was brought to the ED for bizarre behaviors when she arrived at [facility] demanding to see a therapist. Patient is dressed in personal clothing layered over top of hospital scrubs General Appearance: does not appear stated age (appears older than stated age), hospital scrubs/clothing, masculine facial features and voice Build: thin Demeanor: hostile, guarded Eye Contact: average Activity: agitated, hostile Behavior: uncooperative, resistant, restless Speech: clear, normal volume, other (stuttering at times ) Mood: euthymic, angry, irritable Affect: congruent, hostile Thought Process: loose, other (delusional - believes she was brought here on different circumstances than what ED reports, see H&P) Thought Content (Delusions): bizarre, denies SI, HI, AVH, paranoia, delusions (see HPI- believes she was brought here under different circumstances than what ED reports ) Thought Content (Other): guarded, appears paranoid, other (delusional) Thought Content (Aggressive): none reported, observed to be agitated, irritable Perception (Hallucinations): patient is paranoid and will not discuss mental illness Perception (Other): none reported Cognition (Impairment of): memory (p), ability to abstract Cognition(Intelligence Est.): average Oriented: Awake, Alert, Oriented tp person place, believes she has been here 2 months Insight: poor Judgment: Poor Psychosis: Psychotic Perceptions (delusional) DIAGNOSES: Unspecified schizophrenia and other psychotic disorder Tobacco use disorder ASSESSMENT: Patient continues to have poor insight and poor judgment. She has been in bed today sleeping. This morning around 0630 she was trying to elope and when redirected began verbally assaulting staff and throwing furniture. She received benadryl 50 mg IM, haldol 10 mg IM, and ativan 2 mg IM. She has been asleep in room on one to one observation today, unable to participate in interview with staff due to sedation . Management plan Continue all medications Convert 2 pc pursue retention and TOO Time spent 25 minutes Vital Signs Vital Signs Date Time Temp Pulse Resp B/P (MAP) Pulse Ox O2 Delivery O2 Flow Rate FiO2 08/21/20 08:04 97.2 73 16 105/63 08/21/20 07:30 Room Air 08/21/20 06:00 98 Current Medications Current Medications Medications (Trade) Dose Ordered Sig/Rufina Route PRN Reason Start Time Stop Time Status Last Admin Dose Admin Acetaminophen (Tylenol Tab) 650 mg Q6HP PRN PO HEADACHE or DISCOMFORT 08/13/20 16:30 Al Hydrox/Mg Hydrox/Simethicone (Mylanta) 30 ml Q4HP PRN PO HEARTBURN/INDIGESTION 08/13/20 16:30 Diphenhydramine HCl (Benadryl) 50 mg STAT STAT IM 08/21/20 06:38 08/21/20 06:42 DC 08/21/20 06:43 Diphenhydramine HCl (Benadryl) 50 mg STAT STAT IM 08/16/20 01:31 08/16/20 01:34 DC 08/16/20 01:43 Haloperidol (Haldol) 10 mg STAT STAT IM 08/21/20 06:38 08/21/20 06:42 DC 08/21/20 06:44 Haloperidol (Haldol) 10 mg STAT STAT IM 08/16/20 01:31 08/16/20 01:34 DC 08/16/20 01:43 Hydroxyzine HCl (Atarax) 10 mg BIDP PRN PO ANXIETY 08/13/20 16:30 08/20/20 06:45 Lisinopril (Prinivil) 5 mg DAILY PO 08/14/20 09:00 Lorazepam (Ativan) 1 mg STAT STAT IM 08/13/20 07:10 08/13/20 07:11 DC 08/13/20 07:56 Lorazepam (Ativan) 1 mg STAT STAT PO 08/13/20 14:48 08/13/20 14:49 DC Lorazepam (Ativan) 2 mg STAT STAT IM 08/21/20 06:38 08/21/20 06:42 DC 08/21/20 06:43 Lorazepam (Ativan) 2 mg STAT STAT IM 08/16/20 01:31 08/16/20 01:34 DC 08/16/20 01:44 Magnesium Hydroxide (Milk Of Magnesia) 30 ml DAILYPRN PRN PO CONSTIPATION 08/13/20 16:30 Olanzapine (ZyPREXA) 5 mg BID PO 08/14/20 09:00 08/16/20 15:07 Risperidone (RisperDAL) 3 mg QHS PO 08/13/20 21:00 08/14/20 09:00 DC Trazodone HCl (Desyrel) 50 mg QHSP PRN PO INSOMNIA 08/13/20 16:30 Allergies Coded Allergies: SEAFOOD (Unverified Allergy, Severe, THROAT SWELLING, 08/19/04) Bleach (Sodium Hypochlorite) (Verified Allergy, Intermediate, RASH, 05/24/19) Iodine and Iodide Containing Produc (Verified Allergy, Unknown, 03/06/19) shellfish derived (Verified Allergy, Unknown, 05/24/19) MARCUS DEAL NP Aug 21, 2020 15:45
[2020-08-21 18:01] LABS: APPEARANCE, URINE HAZY (CLEAR); BACTERIA, URINE AUTO NEGATIVE (NEGATIVE); BILIRUBIN, URINE AUTO NEGATIVE (NEGATIVE); BLOOD, URINE BLOOD 1+ (NEGATIVE); COLOR, URINE YELLOW (YELLOW); GLUCOSE, URINE (UA) AUTO NEGATIVE (NEGATIVE); KETONE, URINE AUTO NEGATIVE (NEGATIVE); LEUKOCYTE ESTERASE, URINE AUTO 1+ (NEGATIVE); MUCUS, URINE SMALL (NEGATIVE); NITRITE, URINE AUTO NEGATIVE (NEGATIVE); PROTEIN, URINE AUTO NEGATIVE (NEGATIVE); RBC, URINE AUTO 5 /HPF (0-3); SPECIFIC GRAVITY URINE AUTO 1.021 (1.002-1.035); SQUAMOUS EPITHELIAL CELL UR AU 1 /HPF (0-6); UROBILINOGEN, URINE AUTO 0.2 mg/dL (0.0-2.0); WBC, URINE AUTO 2 /HPF (0-3)
[2020-08-22] MEDS: OLANZapine 5 MG TAB PO SCH ×3 (09:00→19:24)
[2020-08-22] MEDS: lisinopriL 5 MG TAB PO SCH (09:00)
--- NOTE | 2020-08-22 12:02 | MHIPNPDOC ---
[facility] Progress Note Progress Note DATE OF SERVICE: 08/22/20 HISTORY: : Patient is a 59 -year-old , female, who per ED reports, was at [facility] where she was agitated and psychotic, walked into the clinic without an appointment demanding to see her therapist. She was highly agitated, profane & accusatory/paranoid. Patient's life care planner was contacted, who reported patient has become so paranoid that she had her heat and electricity turned off and does not have adequate food. manager registration advised patient be brought to [facility] on a corn picker order. When police arrived, patient was talking to her son, who had also reported patient had been decompensating. Patient then stated that her son was not her real son and instead was an imposter and reported her grand daughter has been kidnapped as well, which her son confirmed was untrue. Per patient, she stated that she was walking by her brother's house, who she hasn't spoken to in over a year, and looked into his house through the window and saw that stuff was missing so went the police station to file a report. She stated that She reported that her brother was supposed to call her to clean out the lower apartment but never called her. She stated that when she got to the police station, the police told her they would send over Maurice [place], her nephew to handle the case and instead a few different police officers arrived, threw her up against the car and then brought her here and she is unsure why. VITAL SIGNS: See below. NEW TEST RESULTS: CURRENT MEDICATIONS: See below. MENTAL STATUS EXAMINATION: Patient is a 59-year old Single, Disabled, Domiciled, Female, who was brought to the ED for bizarre behaviors when she arrived at [facility] demanding to see a therapist. Patient is dressed in personal clothing. General Appearance: does not appear stated age (appears older than stated age), hospital scrubs/clothing, masculine facial features and voice Build: thin Demeanor: hostile, guarded Eye Contact: Intense Activity: agitated, hostile Behavior: uncooperative, resistant, restless Speech: clear, normal volume, other (stuttering at times ) Mood: angry, irritable Affect: congruent, hostile Thought Process: loose, other (delusional - believes she was brought here on different circumstances than what ED reports, see H&P) Thought Content (Delusions): bizarre, denies SI, HI, AVH, paranoia, delusions (see HPI- believes she was brought here under different circumstances than what ED reports ) Thought Content (Other): guarded, appears paranoid, other (delusional) Thought Content (Aggressive): none reported, observed to be agitated, irritable Perception (Hallucinations): patient is paranoid and will not discuss mental il lness Perception (Other): none reported Cognition (Impairment of): memory (p), ability to abstract Cognition(Intelligence Est.): average Oriented: Awake, Alert, Oriented tp person place, believes she has been here 2 months Insight: poor Judgment: Poor Psychosis: Psychotic Perceptions (delusional) DIAGNOSES: Unspecified schizophrenia and other psychotic disorder Tobacco use disorder ASSESSMENT: Patient ia 59 year old, Single, Disabled, Domiciled Female. She has short stature, is shorter than 5' tall and has male feature wearing her hair in a crew cut, has male stance and male sounding voice. When she was seen today she had intense eye gaze, states that she is angry that she has not been discharged. She reports that this provider is stealing her money, making it impossible for her to get to her job and that she has things she needs to be doing today. States that I have kidnapped her and have kept her in the hospital for 2 months. Up to this writing she has refused medications, but she states "I took them." Reinforced with patient that she needs to take medications daily, not sporadically and that she will be discharged when she has stabilized. Patient has extremely poor insight and judgment, poor memory and it was reported to this facility by her son that she has no electric, no heat and no food in her apartment. Patient's report of why she is in the hospital changes daily and therefore this demonstrates that she is a poor historian. Management plan Continue all medications Convert 2 pc pursue retention and TOO Time spent 25 minutes Vital Signs Vital Signs Date Time Temp Pulse Resp B/P (MAP) Pulse Ox O2 Delivery O2 Flow Rate FiO2 08/21/20 08:04 97.2 73 16 105/63 08/21/20 07:30 Room Air 08/21/20 06:00 98 Laboratory Data 24H Labs Laboratory Tests 2 08/21/20 17:20: Urine Color YELLOW, Urine Appearance HAZY, Urine pH 6.0, Urine Specific Cable 1.021, Urine Protein NEGATIVE, Urine Glucose (Auto)(UA) NEGATIVE, Urine Ketones (Auto) NEGATIVE, Urine Blood 1+H, Urine Nitrite NEGATIVE, Urine Bilirubin NEGATIVE, Urine Urobilinogen 0.2, Urine Leukocyte Esterase (Auto) 1+H, Urine WBC (Auto) 2, Urine RBC (Auto) 5H, Urine Hyaline Casts (Auto) 0, Urine Bacteria (Auto) NEGATIVE, Urine Squamous Epithelial Cells 1, Urine Mucus (Auto) SMALL, Urine Sperm (Auto) Current Medications Current Medications Medications (Trade) Dose Ordered Sig/Rufina Route PRN Reason Start Time Stop Time Status Last Admin Dose Admin Acetaminophen (Tylenol Tab) 650 mg Q6HP PRN PO HEADACHE or DISCOMFORT 08/13/20 16:30 Al Hydrox/Mg Hydrox/Simethicone (Mylanta) 30 ml Q4HP PRN PO HEARTBURN/INDIGESTION 08/13/20 16:30 Diphenhydramine HCl (Benadryl) 50 mg STAT STAT IM 08/21/20 06:38 08/21/20 06:42 DC 08/21/20 06:43 Diphenhydramine HCl (Benadryl) 50 mg STAT STAT IM 08/16/20 01:31 08/16/20 01:34 DC 08/16/20 01:43 Haloperidol (Haldol) 10 mg STAT STAT IM 08/21/20 06:38 08/21/20 06:42 DC 08/21/20 06:44 Haloperidol (Haldol) 10 mg STAT STAT IM 08/16/20 01:31 08/16/20 01:34 DC 08/16/20 01:43 Hydroxyzine HCl (Atarax) 10 mg BIDP PRN PO ANXIETY 08/13/20 16:30 08/20/20 06:45 Lisinopril (Prinivil) 5 mg DAILY PO 08/14/20 09:00 Lorazepam (Ativan) 1 mg STAT STAT IM 08/13/20 07:10 08/13/20 07:11 DC 08/13/20 07:56 Lorazepam (Ativan) 1 mg STAT STAT PO 08/13/20 14:48 08/13/20 14:49 DC Lorazepam (Ativan) 2 mg STAT STAT IM 08/21/20 06:38 08/21/20 06:42 DC 08/21/20 06:43 Lorazepam (Ativan) 2 mg STAT STAT IM 08/16/20 01:31 08/16/20 01:34 DC 08/16/20 01:44 Magnesium Hydroxide (Milk Of Magnesia) 30 ml DAILYPRN PRN PO CONSTIPATION 08/13/20 16:30 Olanzapine (ZyPREXA) 5 mg BID PO 08/14/20 09:00 08/16/20 15:07 Risperidone (RisperDAL) 3 mg QHS PO 08/13/20 21:00 08/14/20 09:00 DC Trazodone HCl (Desyrel) 50 mg QHSP PRN PO INSOMNIA 08/13/20 16:30 Allergies Coded Allergies: SEAFOOD (Unverified Allergy, Severe, THROAT SWELLING, 08/19/04) Bleach (Sodium Hypochlorite) (Verified Allergy, Intermediate, RASH, 05/24/19) Iodine and Iodide Containing Produc (Verified Allergy, Unknown, 03/06/19) shellfish derived (Verified Allergy, Unknown, 05/24/19) MARCUS DEAL NP Aug 22, 2020 11:40
[2020-08-23 06:58] VITALS: BP 144/73
[2020-08-23] MEDS: OLANZapine 5 MG TAB PO SCH ×2 (08:15→19:04)
[2020-08-23] MEDS: lisinopriL 5 MG TAB PO SCH (08:15)
[2020-08-24] MEDS: OLANZapine 5 MG TAB PO SCH ×2 (08:13→20:15)
[2020-08-24] MEDS: lisinopriL 5 MG TAB PO SCH (08:14)
[2020-08-25] MEDS: OLANZapine 5 MG TAB PO SCH ×2 (08:12→21:00)
[2020-08-25] MEDS: lisinopriL 5 MG TAB PO SCH (08:15)
--- NOTE | 2020-08-25 12:42 | MHIPNPDOC ---
[facility] Progress Note Progress Note DATE OF SERVICE: 08/25/20 HISTORY: : Patient is a 59 -year-old , female, who per ED reports, was at [facility] where she was agitated and psychotic, walked into the clinic without an appointment demanding to see her therapist. She was highly agitated, profane & accusatory/paranoid. Patient's companion caregiver was contacted, who reported patient has become so paranoid that she had her heat and electricity turned off and does not have adequate food. learning program manager advised patient be brought to [facility] on a tack picker order. When police arrived, patient was talking to her son, who had also reported patient had been decompensating. Patient then stated that her son was not her real son and instead was an imposter and reported her grand daughter has been kidnapped as well, which her son confirmed was untrue. Per patient, she stated that she was walking by her brother's house, who she hasn't spoken to in over a year, and looked into his house through the window and saw that stuff was missing so went the police station to file a report. She stated that She reported that her brother was supposed to call her to clean out the lower apartment but never called her. She stated that when she got to the police station, the police told her they would send over Maurice [place], her nephew to handle the case and instead a few different police officers arrived, threw her up against the car and then brought her here and she is unsure why. VITAL SIGNS: See below. NEW TEST RESULTS: CURRENT MEDICATIONS: See below. MENTAL STATUS EXAMINATION: Patient is a 59-year old Single, Disabled, Domiciled, Female, who was brought to the ED for bizarre behaviors when she arrived at [facility] demanding to see a therapist. Patient is dressed in personal clothing. General Appearance: does not appear stated age (appears older than stated age), hospital scrubs/clothing, masculine facial features and voice Build: thin Demeanor: hostile, guarded Eye Contact: Intense Activity: agitated, hostile Behavior: uncooperative, resistant, restless Speech: clear, normal volume, other (stuttering at times ) Mood: angry, irritable Affect: congruent, hostile Thought Process: loose, other (delusional - believes she was brought here on different circumstances than what ED reports, see H&P) Thought Content (Delusions): bizarre, denies SI, HI, AVH, paranoia, delusions (see HPI- believes she was brought here under different circumstances than what ED reports ) Thought Content (Other): guarded, appears paranoid, other (delusional) Thought Content (Aggressive): none reported, observed to be agitated, irritable Perception (Hallucinations): patient is paranoid and will not discuss mental il lness Perception (Other): none reported Cognition (Impairment of): memory (p), ability to abstract Cognition(Intelligence Est.): average Oriented: Awake, Alert, Oriented tp person place, believes she has been here 2 months Insight: poor Judgment: Poor Psychosis: Psychotic Perceptions (delusional) DIAGNOSES: Unspecified schizophrenia and other psychotic disorder Tobacco use disorder ASSESSMENT: Patient ia 59 year old, Single, Disabled, Domiciled Female. She has short stature, is shorter than 5' tall and has male feature wearing her hair in a crew cut, has male stance and male sounding voice. This morning, she has been staring into and circling the office that this greeting card writer was using,continues to be paranoid. When this greeting card writer would leave, she would make comments such as, "when am I getting discharged?" and "I know you are doing something illegal in there. she has been taking medications consistently for the last few days. During the interview, she remained hyperfocued on discharge, asking when she could leave today. When asked if she would be willing to sign a release for her son or case managers to start working on discharge plans and obtain collateral, she became angry and hostile. She stated she did not have a case managers and that she lives alone so the staff doesn't have to talk to anyone. She then begins yelling, stating "you have no kim in God, you're holding me against my will." and "You are going back on your word!" She then left the interview abruptly and slammed the door. Management plan Continue all medications Convert 2 pc pursue retention Time spent 25 minutes Vital Signs Vital Signs Date Time Temp Pulse Resp B/P (MAP) Pulse Ox O2 Delivery O2 Flow Rate FiO2 08/23/20 17:47 96 97 Room Air 08/23/20 06:58 97.3 16 144/73 (96) Current Medications Current Medications Medications (Trade) Dose Ordered Sig/Rufina Route PRN Reason Start Time Stop Time Status Last Admin Dose Admin Acetaminophen (Tylenol Tab) 650 mg Q6HP PRN PO HEADACHE or DISCOMFORT 08/13/20 16:30 Al Hydrox/Mg Hydrox/Simethicone (Mylanta) 30 ml Q4HP PRN PO HEARTBURN/INDIGESTION 08/13/20 16:30 Diphenhydramine HCl (Benadryl) 50 mg STAT STAT IM 08/21/20 06:38 08/21/20 06:42 DC 08/21/20 06:43 Diphenhydramine HCl (Benadryl) 50 mg STAT STAT IM 08/16/20 01:31 08/16/20 01:34 DC 08/16/20 01:43 Haloperidol (Haldol) 10 mg STAT STAT IM 08/21/20 06:38 08/21/20 06:42 DC 08/21/20 06:44 Haloperidol (Haldol) 10 mg STAT STAT IM 08/16/20 01:31 08/16/20 01:34 DC 08/16/20 01:43 Hydroxyzine HCl (Atarax) 10 mg BIDP PRN PO ANXIETY 08/13/20 16:30 08/20/20 06:45 Lisinopril (Prinivil) 5 mg DAILY PO 08/14/20 09:00 Lorazepam (Ativan) 1 mg STAT STAT IM 08/13/20 07:10 08/13/20 07:11 DC 08/13/20 07:56 Lorazepam (Ativan) 1 mg STAT STAT PO 08/13/20 14:48 08/13/20 14:49 DC Lorazepam (Ativan) 2 mg STAT STAT IM 08/21/20 06:38 08/21/20 06:42 DC 08/21/20 06:43 Lorazepam (Ativan) 2 mg STAT STAT IM 08/16/20 01:31 08/16/20 01:34 DC 08/16/20 01:44 Magnesium Hydroxide (Milk Of Magnesia) 30 ml DAILYPRN PRN PO CONSTIPATION 08/13/20 16:30 Olanzapine (ZyPREXA) 5 mg BID PO 08/14/20 09:00 08/25/20 08:12 Risperidone (RisperDAL) 3 mg QHS PO 08/13/20 21:00 08/14/20 09:00 DC Trazodone HCl (Desyrel) 50 mg QHSP PRN PO INSOMNIA 08/13/20 16:30 Allergies Coded Allergies: SEAFOOD (Unverified Allergy, Severe, THROAT SWELLING, 08/19/04) Bleach (Sodium Hypochlorite) (Verified Allergy, Intermediate, RASH, 05/24/19) Iodine and Iodide Containing Produc (Verified Allergy, Unknown, 03/06/19) shellfish derived (Verified Allergy, Unknown, 05/24/19) SATURNINO SALAS Aug 25, 2020 12:42 MARCUS DEAL NP Aug 25, 2020 13:10
[2020-08-26] MEDS: lisinopriL 5 MG TAB PO SCH (09:00)
[2020-08-26] MEDS: OLANZapine 5 MG TAB PO SCH ×2 (09:30→20:40)
[2020-08-26] MEDS ORDERED: TUBERCULIN PPD 5 UNITS/0.1 ML ID ONE ×2 (10:00→15:30)
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
[2020-08-27] MEDS: OLANZapine 5 MG TAB PO SCH ×2 (09:00→21:00)
[2020-08-27] MEDS: lisinopriL 5 MG TAB PO SCH (09:00)
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
[2020-08-28] MEDS: OLANZapine 5 MG TAB PO SCH ×2 (09:00→19:42)
[2020-08-28] MEDS: lisinopriL 5 MG TAB PO SCH (09:00)
[2020-08-28] MEDS ORDERED: PPD DOCUMENTATION ENTRY MISC XX ONE (10:00)
[2020-08-28] MEDS ORDERED: PPD DOCUMENTATION ENTRY MISC ID SCH (10:00)
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
[2020-08-29 06:00] VITALS: BP 145/73
[2020-08-29] MEDS: lisinopriL 5 MG TAB PO SCH (09:00)
[2020-08-29] MEDS: OLANZapine 5 MG TAB PO SCH ×2 (09:00→21:00)
--- NOTE | 2020-08-29 11:46 | MHIPNPDOC ---
[facility] Progress Note Progress Note DATE OF SERVICE: 08/29/20 HISTORY: Patient is a 59 -year-old , female, who per ED reports, was at [facility] where she was agitated and psychotic, walked into the clinic without an appointment demanding to see her therapist. She was highly agitated, profane & accusatory/paranoid. Patient's healthcare analyst was contacted, who reported patient has become so paranoid that she had her heat and electricity turned off and does not have adequate food. district wildlife manager advised patient be brought to [facility] on a brass pickler order. When police arrived, patient was talking to her son, who had also reported patient had been decompensating. Patient then stated that her son was not her real son and instead was an imposter and reported her grand daughter has been kidnapped as well, which her son confirmed was untrue. Per patient, she stated that she was walking by her brother's house, who she hasn't spoken to in over a year, and looked into his house through the window and saw that stuff was missing so went the police station to file a report. She stated that She reported that her brother was supposed to call her to clean out the lower apartment but never called her. She stated that when she got to the police station, the police told her they would send over Maurice Albers, her nephew to handle the case and instead a few different police officers arrived, threw her up against the car and then brought her here and she is unsure why. VITAL SIGNS: See below. CURRENT MEDICATIONS: See below. MENTAL STATUS EXAMINATION: Patient is a 59-year old Single, Disabled, Domiciled, Female, who was brought to the ED for bizarre behaviors when she arrived [facility] demanding to se e a therapist. Patient is dressed in personal clothing. General Appearance: does not appear stated age (appears older than stated age), hospital scrubs/clothing, masculine facial features and voice Build: thin Demeanor: hostile, guarded Eye Contact: Intense Activity: agitated, hostile Behavior: uncooperative, resistant, restless Speech: clear, normal volume, other (stuttering at times ) Mood: angry, irritable Affect: congruent, hostile Thought Process: loose, other (delusional - believes she was brought here on different circumstances than what ED reports, see H&P) Thought Content (Delusions): bizarre, denies SI, HI, AVH, paranoia, delusions (see HPI- believes she was brought here under different circumstances than what ED reports ) Thought Content (Other): guarded, appears paranoid, other (delusional) Thought Content (Aggressive): none reported, observed to be agitated, irritable Perception (Hallucinations): patient is paranoid and will not discuss mental illness Perception (Other): none reported Cognition (Impairment of): memory (p), ability to abstract Cognition(Intelligence Est.): average Oriented: Awake, Alert, Oriented to person place, believes she has been here 2 months Insight: poor Judgment: Poor Psychosis: Psychotic Perceptions (delusional) DIAGNOSES: Unspecified schizophrenia and other psychotic disorder Tobacco use disorder ASSESSMENT: Patient is 59 year old, Single, Disabled, Domiciled Female, continues to be significantly paranoid and display poor insight and judgment. She refused to meet for an interview today, states "I am waiting for my real d octor, I found out who you are!" She continue to express state that this flex o writer operator is not her assigned "physician" and therefore refuses to meet. She continues to pace the floor and is heard in the cuevas yelling "You guys kidnapped me! I need to talk to the head export administrator!" She did start taking the scheduled zyprexa again but still remains paranoid. MANAGEMENT PLAN: Management plan Continue all medications Convert 2 pc pursue retention Transfer [facility] Time spent 25 minutes Vital Signs Vital Signs Date Time Temp Pulse Resp B/P (MAP) Pulse Ox O2 Delivery O2 Flow Rate FiO2 08/29/20 06:00 98.3 80 16 145/73 (97) 97 Room Air Current Medications Current Medications Medications (Trade) Dose Ordered Sig/Rufina Route PRN Reason Start Time Stop Time Status Last Admin Dose Admin Acetaminophen (Tylenol Tab) 650 mg Q6HP PRN PO HEADACHE or DISCOMFORT 08/13/20 16:30 Al Hydrox/Mg Hydrox/Simethicone (Mylanta) 30 ml Q4HP PRN PO HEARTBURN/INDIGESTION 08/13/20 16:30 Diphenhydramine HCl (Benadryl) 50 mg STAT STAT IM 08/21/20 06:38 08/21/20 06:42 DC 08/21/20 06:43 Diphenhydramine HCl (Benadryl) 50 mg STAT STAT IM 08/16/20 01:31 08/16/20 01:34 DC 08/16/20 01:43 Haloperidol (Haldol) 10 mg STAT STAT IM 08/21/20 06:38 08/21/20 06:42 DC 08/21/20 06:44 Haloperidol (Haldol) 10 mg STAT STAT IM 08/16/20 01:31 08/16/20 01:34 DC 08/16/20 01:43 Hydroxyzine HCl (Atarax) 10 mg BIDP PRN PO ANXIETY 08/13/20 16:30 08/20/20 06:45 Lisinopril (Prinivil) 5 mg DAILY PO 08/14/20 09:00 Lorazepam (Ativan) 1 mg STAT STAT IM 08/13/20 07:10 08/13/20 07:11 DC 08/13/20 07:56 Lorazepam (Ativan) 1 mg STAT STAT PO 08/13/20 14:48 08/13/20 14:49 DC Lorazepam (Ativan) 2 mg STAT STAT IM 08/21/20 06:38 08/21/20 06:42 DC 08/21/20 06:43 Lorazepam (Ativan) 2 mg STAT STAT IM 08/16/20 01:31 08/16/20 01:34 DC 08/16/20 01:44 Magnesium Hydroxide (Milk Of Magnesia) 30 ml DAILYPRN PRN PO CONSTIPATION 08/13/20 16:30 Non-Formulary Medication ( See Comment Field Below ) SEE COMMENTS SECT... 1T@10 ID 08/28/20 10:00 08/26/20 10:04 DC Olanzapine (ZyPREXA) 5 mg BID PO 08/14/20 09:00 08/28/20 19:42 Risperidone (RisperDAL) 3 mg QHS PO 08/13/20 21:00 08/14/20 09:00 DC Trazodone HCl (Desyrel) 50 mg QHSP PRN PO INSOMNIA 08/13/20 16:30 Allergies Coded Allergies: SEAFOOD (Unverified Allergy, Severe, THROAT SWELLING, 08/19/04) Bleach (Sodium Hypochlorite) (Verified Allergy, Intermediate, RASH, 05/24/19) Iodine and Iodide Containing Produc (Verified Allergy, Unknown, 03/06/19) shellfish derived (Verified Allergy, Unknown, 05/24/19) MARCUS DEAL NP Aug 29, 2020 11:46
--- NOTE | 2020-08-29 14:01 | MHIPNPDOC ---
[facility] Progress Note Progress Note DATE OF SERVICE: 08/25/20 HISTORY: : Patient is a 59 -year-old , female, who per ED reports, was at [facility] where she was agitated and psychotic, walked into the clinic without an appointment demanding to see her therapist. She was highly agitated, profane & accusatory/paranoid. Patient's career development facilitator was contacted, who reported patient has become so paranoid that she had her heat and electricity turned off and does not have adequate food. community engagement manager advised patient be brought to [facility] on a pharmacy picking tech order. When police arrived, patient was talking to her son, who had also reported patient had been decompensating. Patient then stated that her son was not her real son and instead was an imposter and reported her grand daughter has been kidnapped as well, which her son confirmed was untrue. Per patient, she stated that she was walking by her brother's house, who she hasn't spoken to in over a year, and looked into his house through the window and saw that stuff was missing so went the police station to file a report. She stated that She reported that her brother was supposed to call her to clean out the lower apartment but never called her. She stated that when she got to the police station, the police told her they would send over Maurice Portland, her nephew to handle the case and instead a few different police officers arrived, threw her up against the car and then brought her here and she is unsure why. VITAL SIGNS: See below. NEW TEST RESULTS: CURRENT MEDICATIONS: See below. MENTAL STATUS EXAMINATION: Patient is a 59-year old Single, Disabled, Domiciled, Female, who was brought to the ED for bizarre behaviors when she arrived at [facility] demanding to see a therapist. Patient is dressed in personal clothing. General Appearance: does not appear stated age (appears older than stated age), hospital scrubs/clothing, masculine facial features and voice Build: thin Demeanor: hostile, guarded Eye Contact: Intense Activity: agitated, hostile Behavior: uncooperative, resistant, restless Speech: clear, normal volume, other (stuttering at times ) Mood: angry, irritable Affect: congruent, hostile Thought Process: loose, other (delusional - believes she was brought here on different circumstances than what ED reports, see H&P) Thought Content (Delusions): bizarre, denies SI, HI, AVH, paranoia, delusions (see HPI- believes she was brought here under different circumstances than what ED reports ) Thought Content (Other): guarded, appears paranoid, other (delusional) Thought Content (Aggressive): none reported, observed to be agitated, irritable Perception (Hallucinations): patient is paranoid and will not discuss mental il lness Perception (Other): none reported Cognition (Impairment of): memory (p), ability to abstract Cognition(Intelligence Est.): average Oriented: Awake, Alert, Oriented tp person place, believes she has been here 2 months Insight: poor Judgment: Poor Psychosis: Psychotic Perceptions (delusional) DIAGNOSES: Unspecified schizophrenia and other psychotic disorder Tobacco use disorder ASSESSMENT: Patient ia 59 year old, Single, Disabled, Domiciled Female. She has short stature, is shorter than 5' tall and has male feature wearing her hair in a crew cut, has male stance and male sounding voice. This morning, she has been staring into and circling the office that this junior copywriter was using,continues to be paranoid. When this junior copywriter would leave, she would make comments such as, "when am I getting discharged?" and "I know you are doing something illegal in there. she has been taking medications consistently for the last few days. During the interview, she remained hyperfocued on discharge, asking when she could leave today. When asked if she would be willing to sign a release for her son or telephonic nurse case manager to start working on discharge plans and obtain collateral, she became angry and hostile. She stated she did not have a telephonic nurse case manager and that she lives alone so the staff doesn't have to talk to anyone. She then begins yelling, stating "you have no kim in God, you're holding me against my will." and "You are going back on your word!" She then left the interview abruptly and slammed the door. Management plan Continue all medications Convert 2 pc pursue retention Time spent 25 minutes Vital Signs Vital Signs Date Time Temp Pulse Resp B/P (MAP) Pulse Ox O2 Delivery O2 Flow Rate FiO2 08/29/20 06:00 98.3 80 16 145/73 (97) 97 Room Air Current Medications Current Medications Medications (Trade) Dose Ordered Sig/Rufina Route PRN Reason Start Time Stop Time Status Last Admin Dose Admin Acetaminophen (Tylenol Tab) 650 mg Q6HP PRN PO HEADACHE or DISCOMFORT 08/13/20 16:30 Al Hydrox/Mg Hydrox/Simethicone (Mylanta) 30 ml Q4HP PRN PO HEARTBURN/INDIGESTION 08/13/20 16:30 Diphenhydramine HCl (Benadryl) 50 mg STAT STAT IM 08/21/20 06:38 08/21/20 06:42 DC 08/21/20 06:43 Diphenhydramine HCl (Benadryl) 50 mg STAT STAT IM 08/16/20 01:31 08/16/20 01:34 DC 08/16/20 01:43 Haloperidol (Haldol) 10 mg STAT STAT IM 08/21/20 06:38 08/21/20 06:42 DC 08/21/20 06:44 Haloperidol (Haldol) 10 mg STAT STAT IM 08/16/20 01:31 08/16/20 01:34 DC 08/16/20 01:43 Hydroxyzine HCl (Atarax) 10 mg BIDP PRN PO ANXIETY 08/13/20 16:30 08/20/20 06:45 Lisinopril (Prinivil) 5 mg DAILY PO 08/14/20 09:00 Lorazepam (Ativan) 1 mg STAT STAT IM 08/13/20 07:10 08/13/20 07:11 DC 08/13/20 07:56 Lorazepam (Ativan) 1 mg STAT STAT PO 08/13/20 14:48 08/13/20 14:49 DC Lorazepam (Ativan) 2 mg STAT STAT IM 08/21/20 06:38 08/21/20 06:42 DC 08/21/20 06:43 Lorazepam (Ativan) 2 mg STAT STAT IM 08/16/20 01:31 08/16/20 01:34 DC 08/16/20 01:44 Magnesium Hydroxide (Milk Of Magnesia) 30 ml DAILYPRN PRN PO CONSTIPATION 08/13/20 16:30 Non-Formulary Medication ( See Comment Field Below ) SEE COMMENTS SECT... 1T@10 ID 08/28/20 10:00 08/26/20 10:04 DC Olanzapine (ZyPREXA) 5 mg BID PO 08/14/20 09:00 08/28/20 19:42 Risperidone (RisperDAL) 3 mg QHS PO 08/13/20 21:00 08/14/20 09:00 DC Trazodone HCl (Desyrel) 50 mg QHSP PRN PO INSOMNIA 08/13/20 16:30 Allergies Coded Allergies: SEAFOOD (Unverified Allergy, Severe, THROAT SWELLING, 08/19/04) Bleach (Sodium Hypochlorite) (Verified Allergy, Intermediate, RASH, 05/24/19) Iodine and Iodide Containing Produc (Verified Allergy, Unknown, 03/06/19) shellfish derived (Verified Allergy, Unknown, 05/24/19) MARCUS DEAL NP Aug 29, 2020 14:01
[2020-08-30] MEDS ORDERED: diphenhydrAMINE 50MG/ML VIAL (J1200) IM STA (04:18)
[2020-08-30] MEDS ORDERED: HALOPERIDOL 5MG/ML VIAL (J1630 PER 1) IM STA (04:18)
[2020-08-30] MEDS ORDERED: LORazepam 2 MG/ML VIAL IM STA (04:18)
[2020-08-30] MEDS: OLANZapine 5 MG TAB PO SCH ×2 (09:00→21:00)
[2020-08-30] MEDS: lisinopriL 5 MG TAB PO SCH (09:00)
--- NOTE | 2020-08-30 19:58 | MHIPNPDOC ---
[facility] Progress Note Progress Note Subjective: Leai is a 59 year old female with a history of Schizophrenia who was brought into the [facility] ED by the advice of her employment evaluator/case manager, due to being in a psychotic, decompensated state. Leia continues to refuse almost all doses of her psychotropic medication, Zyprexa. Early in the morning, a code was called due to her being increasingly aggressive, threatening, psychotic and an imminent danger to others, where she was placed in 4 point restraints and given Haldol 5 mg/Ativan 2 mg/Benadryl 50 mg IM stat for psychotic agitation/anxiety/EPS, respectively, with good effect. Later in the day, she began to perseverate again, in a very psychotic fashion, Im gonna kill all of you!!!! Objective: She was seen and evaluated, alert and oriented times three, cognition fair; She is dressed in casual clothes, fair hygiene, appears younger than stated age, short stature with a thin body habitus, appears psychomotor agitated; Speech is loud in volume, increased in production and fast in rate; Mood: F### you!! Affect: labile, increased intensity and range. TP are disorganized with flight of ideas; TC contains paranoid/persecutory delusional themes; She is hostile/aggressive/threatening/(+) HI but denies any SI/I/P. Denies perceptual disturbances but she appears internally preoccupied, responding to internal stimuli. I/IC/J are all poor. Diagnosis: Schizophrenia A/P: Leia is a 59 year old female with a history of Schizophrenia who was brought into the [facility] ED by the advice of her employment evaluator/case manager, due to being in a psychotic, decompensated state. 1) Continue Zyprexa 5 mg BID; Shes currently refusing most oral doses; A [facility] treatment over objection hearing is pending. 2) Continue to collaborate with treatment team and Hospitalist. 3) Q 15 min checks 4) Collaborate with discharge planners for the safest, most optimal, discharge, upon her clinical stabilization. 5) Continue to encourage participation with group programming and activities on the unit. Total time spent: 30 minutes Vital Signs Vital Signs Date Time Temp Pulse Resp B/P (MAP) Pulse Ox O2 Delivery O2 Flow Rate FiO2 08/29/20 06:00 98.3 80 16 145/73 (97) 97 Room Air Current Medications Current Medications Medications (Trade) Dose Ordered Sig/Rufina Route PRN Reason Start Time Stop Time Status Last Admin Dose Admin Acetaminophen (Tylenol Tab) 650 mg Q6HP PRN PO HEADACHE or DISCOMFORT 08/13/20 16:30 Al Hydrox/Mg Hydrox/Simethicone (Mylanta) 30 ml Q4HP PRN PO HEARTBURN/INDIGESTION 08/13/20 16:30 Diphenhydramine HCl (Benadryl) 50 mg STAT STAT IM 08/21/20 06:38 08/21/20 06:42 DC 08/21/20 06:43 Diphenhydramine HCl (Benadryl) 50 mg STAT STAT IM 08/30/20 04:18 08/30/20 04:22 DC 08/30/20 04:28 Diphenhydramine HCl (Benadryl) 50 mg STAT STAT IM 08/16/20 01:31 08/16/20 01:34 DC 08/16/20 01:43 Haloperidol (Haldol) 5 mg STAT STAT IM 08/30/20 04:18 08/30/20 04:22 DC 08/30/20 04:28 Haloperidol (Haldol) 10 mg STAT STAT IM 08/21/20 06:38 08/21/20 06:42 DC 08/21/20 06:44 Haloperidol (Haldol) 10 mg STAT STAT IM 08/16/20 01:31 08/16/20 01:34 DC 08/16/20 01:43 Hydroxyzine HCl (Atarax) 10 mg BIDP PRN PO ANXIETY 08/13/20 16:30 08/20/20 06:45 Lisinopril (Prinivil) 5 mg DAILY PO 08/14/20 09:00 Lorazepam (Ativan) 1 mg STAT STAT IM 08/13/20 07:10 08/13/20 07:11 DC 08/13/20 07:56 Lorazepam (Ativan) 1 mg STAT STAT PO 08/13/20 14:48 08/13/20 14:49 DC Lorazepam (Ativan) 2 mg STAT STAT IM 08/21/20 06:38 08/21/20 06:42 DC 08/21/20 06:43 Lorazepam (Ativan) 2 mg STAT STAT IM 08/30/20 04:18 08/30/20 04:22 DC 08/30/20 04:28 Lorazepam (Ativan) 2 mg STAT STAT IM 08/16/20 01:31 08/16/20 01:34 DC 08/16/20 01:44 Magnesium Hydroxide (Milk Of Magnesia) 30 ml DAILYPRN PRN PO CONSTIPATION 08/13/20 16:30 Non-Formulary Medication ( See Comment Field Below ) SEE COMMENTS SECT... 1T@10 ID 08/28/20 10:00 08/26/20 10:04 DC Olanzapine (ZyPREXA) 5 mg BID PO 08/14/20 09:00 08/28/20 19:42 Risperidone (RisperDAL) 3 mg QHS PO 08/13/20 21:00 08/14/20 09:00 DC Trazodone HCl (Desyrel) 50 mg QHSP PRN PO INSOMNIA 08/13/20 16:30 Allergies Coded Allergies: SEAFOOD (Unverified Allergy, Severe, THROAT SWELLING, 08/19/04) Bleach (Sodium Hypochlorite) (Verified Allergy, Intermediate, RASH, 05/24/19) Iodine and Iodide Containing Produc (Verified Allergy, Unknown, 03/06/19) shellfish derived (Verified Allergy, Unknown, 05/24/19) CHRISTY HOLLEY MD Aug 30, 2020 19:58
[2020-08-31] MEDS: lisinopriL 5 MG TAB PO SCH (09:00)
[2020-08-31] MEDS: OLANZapine 5 MG TAB PO SCH ×2 (09:00→22:36)
[2020-09-01] MEDS: lisinopriL 5 MG TAB PO SCH (08:47)
[2020-09-01] MEDS: OLANZapine 5 MG TAB PO SCH (08:47)
--- NOTE | 2020-09-01 12:38 | MHIPNPDOC ---
[facility] Progress Note Progress Note DATE OF SERVICE: 09/01/20 ISTORY: : Patient is a 59 -year-old , female, who per ED reports, was at [facility] where she was agitated and psychotic, walked into the clinic without an appointment demanding to see her therapist. She was highly agitated, profane & accusatory/paranoid. Patient's pulmonary care nurse was contacted, who reported patient has become so paranoid that she had her heat and electricity turned off and does not have adequate food. manager lighting advised patient be brought to [facility] on a pick pulling machine operator order. When police arrived, patient was talking to her son, who had also reported patient had been decompensating. Patient then stated that her son was not her real son and instead was an imposter and reported her grand daughter has been kidnapped as well, which her son confirmed was untrue. Per patient, she stated that she was walking by her brother's house, who she hasn't spoken to in over a year, and looked into his house through the window and saw that stuff was missing so went the police station to file a report. She stated that She reported that her brother was supposed to call her to clean out the lower apartment but never called her. She stated that when she got to the police station, the police told her they would send over Maurice Winchester, her nephew to handle the case and instead a few different police officers arrived, threw her up against the car and then brought her here and she is unsure why. VITAL SIGNS: See below. NEW TEST RESULTS: CURRENT MEDICATIONS: See below. MENTAL STATUS EXAMINATION: Patient is a 59-year old Single, Disabled, Domiciled, Female, who was brought to the ED for bizarre behaviors when she arrived at [facility] demanding to see a therapist. Patient is dressed in personal clothing. General Appearance: does not appear stated age (appears older than stated age), hospital scrubs/clothing, masculine facial features and voice Build: thin Demeanor: hostile, guarded Eye Contact: Intense Activity: agitated, hostile Behavior: uncooperative, resistant, restless Speech: clear, normal volume, other (stuttering at times ) Mood: angry, irritable Affect: congruent, hostile Thought Process: loose, other (delusional - believes she was brought here on different circumstances than what ED reports, see H&P) Thought Content (Delusions): bizarre, denies SI, HI, AVH, paranoia, delusions (see HPI- believes she was brought here under different circumstances than what ED reports ) Thought Content (Other): guarded, appears paranoid, other (delusional) Thought Content (Aggressive): none reported, observed to be agitated, irritable Perception (Hallucinations): patient is paranoid and will not discuss mental illness Perception (Other): none reported Cognition (Impairment of): memory (p), ability to abstract Cognition(Intelligence Est.): average Oriented: Awake, Alert, Oriented tp person place, believes she has been here 2 months Insight: poor Judgment: Poor Psychosis: Psychotic Perceptions (delusional) DIAGNOSES: Unspecified schizophrenia and other psychotic disorder Tobacco use disorder ASSESSMENT: Patient ia 59 year old, Single, Disabled, Domiciled Female, who wyatt ins with poor insight, judgment and is significantly paranoid. Leia refused to meet for interview, states, "She ain't my doctor! She's trying to keep me here!" Per reports over the weekend, she was chemically restrained with 2 mg IM ativan, 5 mg IM haldol, and 50 mg IM benadryl after she was very loud, wanting to leave the floor, wasn't redirectable, and became verbally and physically threatening towards staff. In addition, she has been refusing her scheduled olanzapine. Olanzapine will be discontinued and she will start invega 3 mg po qhs.. Management plan TOO stop olanzapine 5 mg po bid Start invega 3 mg po qhs Time spent 25 minutes Vital Signs Vital Signs Date Time Temp Pulse Resp B/P (MAP) Pulse Ox O2 Delivery O2 Flow Rate FiO2 08/29/20 06:00 98.3 80 16 145/73 (97) 97 Room Air Current Medications Current Medications Medications (Trade) Dose Ordered Sig/Rufina Route PRN Reason Start Time Stop Time Status Last Admin Dose Admin Acetaminophen (Tylenol Tab) 650 mg Q6HP PRN PO HEADACHE or DISCOMFORT 08/13/20 16:30 Al Hydrox/Mg Hydrox/Simethicone (Mylanta) 30 ml Q4HP PRN PO HEARTBURN/INDIGESTION 08/13/20 16:30 Diphenhydramine HCl (Benadryl) 50 mg STAT STAT IM 08/21/20 06:38 08/21/20 06:42 DC 08/21/20 06:43 Diphenhydramine HCl (Benadryl) 50 mg STAT STAT IM 08/30/20 04:18 08/30/20 04:22 DC 08/30/20 04:28 Diphenhydramine HCl (Benadryl) 50 mg STAT STAT IM 08/16/20 01:31 08/16/20 01:34 DC 08/16/20 01:43 Haloperidol (Haldol) 5 mg STAT STAT IM 08/30/20 04:18 08/30/20 04:22 DC 08/30/20 04:28 Haloperidol (Haldol) 10 mg STAT STAT IM 08/21/20 06:38 08/21/20 06:42 DC 08/21/20 06:44 Haloperidol (Haldol) 10 mg STAT STAT IM 08/16/20 01:31 08/16/20 01:34 DC 08/16/20 01:43 Hydroxyzine HCl (Atarax) 10 mg BIDP PRN PO ANXIETY 08/13/20 16:30 08/20/20 06:45 Lisinopril (Prinivil) 5 mg DAILY PO 08/14/20 09:00 Lorazepam (Ativan) 1 mg STAT STAT IM 08/13/20 07:10 08/13/20 07:11 DC 08/13/20 07:56 Lorazepam (Ativan) 1 mg STAT STAT PO 08/13/20 14:48 08/13/20 14:49 DC Lorazepam (Ativan) 2 mg STAT STAT IM 08/21/20 06:38 08/21/20 06:42 DC 08/21/20 06:43 Lorazepam (Ativan) 2 mg STAT STAT IM 08/30/20 04:18 08/30/20 04:22 DC 08/30/20 04:28 Lorazepam (Ativan) 2 mg STAT STAT IM 08/16/20 01:31 08/16/20 01:34 DC 08/16/20 01:44 Magnesium Hydroxide (Milk Of Magnesia) 30 ml DAILYPRN PRN PO CONSTIPATION 08/13/20 16:30 Non-Formulary Medication ( See Comment Field Below ) SEE COMMENTS SECT... 1T@10 ID 08/28/20 10:00 08/26/20 10:04 DC Olanzapine (ZyPREXA) 5 mg BID PO 08/14/20 09:00 09/01/20 12:01 DC 08/28/20 19:42 Paliperidone (Invega) 3 mg QHS PO 09/01/20 21:00 Risperidone (RisperDAL) 3 mg QHS PO 08/13/20 21:00 08/14/20 09:00 DC Trazodone HCl (Desyrel) 50 mg QHSP PRN PO INSOMNIA 08/13/20 16:30 Allergies Coded Allergies: SEAFOOD (Unverified Allergy, Severe, THROAT SWELLING, 08/19/04) Bleach (Sodium Hypochlorite) (Verified Allergy, Intermediate, RASH, 05/24/19) Iodine and Iodide Containing Produc (Verified Allergy, Unknown, 03/06/19) shellfish derived (Verified Allergy, Unknown, 05/24/19) MARCUS DEAL NP Sep 01, 2020 12:38
[2020-09-01] MEDS: PALIPERIDONE 3 MG ER TAB (INVEGA) PO SCH (21:00)
[2020-09-02] MEDS: lisinopriL 5 MG TAB PO SCH (10:29)
--- NOTE | 2020-09-02 13:36 | MHIPNPDOC ---
[facility] Progress Note Progress Note DATE OF SERVICE: 09/02/20 HISTORY: Patient is a 59 -year-old , female, who per ED reports, was at [facility] where she was agitated and psychotic, walked into the clinic without an appointment demanding to see her therapist. She was highly agitated, profane & accusatory/paranoid. Patient's medicare interviewer was contacted, who reported patient has become so paranoid that she had her heat and electricity turned off and does not have adequate food. senior brand manager advised patient be brought to [facility] on a molded goods spot picker order. When police arrived, patient was talking to her son, who had also reported patient had been decompensating. Patient then stated that her son was not her real son and instead was an imposter and reported her grand daughter has been kidnapped as well, which her son confirmed was untrue. Per patient, she stated that she was walking by her brother's house, who she hasn't spoken to in over a year, and looked into his house through the window and saw that stuff was missing so went the police station to file a report. She stated that She reported that her brother was supposed to call her to clean out the lower apartment but never called her. She stated that when she got to the police station, the police told her they would send over Maurice Connell, her nephew to handle the case and instead a few different police officers arrived, threw her up against the car and then brought her here and she is unsure why. VITAL SIGNS: See below. NEW TEST RESULTS: CURRENT MEDICATIONS: See below. MENTAL STATUS EXAMINATION: Patient is a 59-year old Single, Disabled, Domiciled, Female, who was brought to the ED for bizarre behaviors when she arrived at [facility] demanding to see a therapist. Patient is dressed in personal clothing. General Appearance: does not appear stated age (appears older than stated age), hospital scrubs/clothing, masculine facial features and voice Build: thin Demeanor: hostile, guarded Eye Contact: Intense Activity: agitated, hostile Behavior: uncooperative, resistant, restless Speech: clear, normal volume, other (stuttering at times ) Mood: angry, irritable Affect: congruent, hostile Thought Process: loose, other (delusional - believes she was brought here on different circumstances than what ED reports, see H&P) Thought Content (Delusions): bizarre, denies SI, HI, AVH, paranoia, delusions (see HPI- believes she was brought here under different circumstances than what ED reports ) Thought Content (Other): guarded, appears paranoid, other (delusional) Thought Content (Aggressive): none reported, observed to be agitated, irritable Perception (Hallucinations): patient is paranoid and will not discuss mental illness Perception (Other): none reported Cognition (Impairment of): memory (p), ability to abstract Cognition(Intelligence Est.): average Oriented: Awake, Alert, Oriented tp person place, believes she has been here 2 months Insight: poor Judgment: Poor Psychosis: Psychotic Perceptions (delusional) DIAGNOSES: Unspecified schizophrenia and other psychotic disorder Tobacco use disorder ASSESSMENT: Patient ia 59 year old, Single, Disabled, Domiciled Female, who wyatt ins with poor insight, judgment and is significantly paranoid. In today's interview, Leia remains paranoid, with poor insight and judgment. She reports that she feels "fine" and wants to be discharged. She angrily left the interview shortly after walking in, after it was explained that she wouldn't be discharged today. This underwriter attempted to explain that her medications was changed from olanzapine to invega, and she reported "I'm not taking any medications. My doctor says I don't need to take anything (referring to her pcp). She yelled, "You are not my doctor!" and subsequently slammed the door. Shortly after, while talking to another patient in the cuevas, she interrupted, demanding angrily "when am I going to be discharged?" She was directed to an interview room, where it was explained that the hospital was pursuing TOO due to her not taking her medications. She became angrily, yelling "you can't do that, you have to take my rehabilitation caseworker to court, not me. She's in charge everything!" It is important to note that she has been refusing to sign releases for her rehabilitation caseworker, at one point she even reported to the treatment team that she did not have a rehabilitation caseworker. Leia then reported, "you guys kidnapped me from the emergency room and have been holding me here for seven months!" After this conversation, she is angry, is heard in the cuevas yelling profanities, and even walking down the cuevas to the door at one point, stating I want to be discharged! when told she could not be by the door. Management plan Pursue TOO continue all medications Time spent 25 minutes Vital Signs Vital Signs Date Time Temp Pulse Resp B/P (MAP) Pulse Ox O2 Delivery O2 Flow Rate FiO2 08/29/20 06:00 98.3 80 16 145/73 (97) 97 Room Air Current Medications Current Medications Medications (Trade) Dose Ordered Sig/Rufina Route PRN Reason Start Time Stop Time Status Last Admin Dose Admin Acetaminophen (Tylenol Tab) 650 mg Q6HP PRN PO HEADACHE or DISCOMFORT 08/13/20 16:30 Al Hydrox/Mg Hydrox/Simethicone (Mylanta) 30 ml Q4HP PRN PO HEARTBURN/INDIGESTION 08/13/20 16:30 Diphenhydramine HCl (Benadryl) 50 mg STAT STAT IM 08/21/20 06:38 08/21/20 06:42 DC 08/21/20 06:43 Diphenhydramine HCl (Benadryl) 50 mg STAT STAT IM 08/30/20 04:18 08/30/20 04:22 DC 08/30/20 04:28 Diphenhydramine HCl (Benadryl) 50 mg STAT STAT IM 08/16/20 01:31 08/16/20 01:34 DC 08/16/20 01:43 Haloperidol (Haldol) 5 mg STAT STAT IM 08/30/20 04:18 08/30/20 04:22 DC 08/30/20 04:28 Haloperidol (Haldol) 10 mg STAT STAT IM 08/21/20 06:38 08/21/20 06:42 DC 08/21/20 06:44 Haloperidol (Haldol) 10 mg STAT STAT IM 08/16/20 01:31 08/16/20 01:34 DC 08/16/20 01:43 Hydroxyzine HCl (Atarax) 10 mg BIDP PRN PO ANXIETY 08/13/20 16:30 08/20/20 06:45 Lisinopril (Prinivil) 5 mg DAILY PO 08/14/20 09:00 Lorazepam (Ativan) 1 mg STAT STAT IM 08/13/20 07:10 08/13/20 07:11 DC 08/13/20 07:56 Lorazepam (Ativan) 1 mg STAT STAT PO 08/13/20 14:48 08/13/20 14:49 DC Lorazepam (Ativan) 2 mg STAT STAT IM 08/21/20 06:38 08/21/20 06:42 DC 08/21/20 06:43 Lorazepam (Ativan) 2 mg STAT STAT IM 08/30/20 04:18 08/30/20 04:22 DC 08/30/20 04:28 Lorazepam (Ativan) 2 mg STAT STAT IM 08/16/20 01:31 08/16/20 01:34 DC 08/16/20 01:44 Magnesium Hydroxide (Milk Of Magnesia) 30 ml DAILYPRN PRN PO CONSTIPATION 08/13/20 16:30 Non-Formulary Medication ( See Comment Field Below ) SEE COMMENTS SECT... 1T@10 ID 08/28/20 10:00 08/26/20 10:04 DC Olanzapine (ZyPREXA) 5 mg BID PO 08/14/20 09:00 09/01/20 12:01 DC 08/28/20 19:42 Paliperidone (Invega) 3 mg QHS PO 09/01/20 21:00 Risperidone (RisperDAL) 3 mg QHS PO 08/13/20 21:00 08/14/20 09:00 DC Trazodone HCl (Desyrel) 50 mg QHSP PRN PO INSOMNIA 08/13/20 16:30 Allergies Coded Allergies: SEAFOOD (Unverified Allergy, Severe, THROAT SWELLING, 08/19/04) Bleach (Sodium Hypochlorite) (Verified Allergy, Intermediate, RASH, 05/24/19) Iodine and Iodide Containing Produc (Verified Allergy, Unknown, 03/06/19) shellfish derived (Verified Allergy, Unknown, 05/24/19) MARCUS DEAL NP Sep 02, 2020 13:35
--- NOTE | 2020-09-02 13:49 | MHCRPDOC ---
[facility] Consultation Consultation Evaluation For Treatment Over Objection September 02, 2020 Report of Consultation Name: Leia Goldberg : [birth year] MR Number: [id number] Location: Inpatient Mental Health Unit at [facility] Date of Admission: August 13, 2020 Date of Consultation: September 03, 2020 Consulting Physician: Danya Burrell NP and Dr. Evelyn Yepez Diagnosis: Unspecified schizophrenia and other psychotic disorder Tobacco use disorder Clinical Summary: Patient is a 59-year old Single, female with a history of one psychiatric hospitalization in March 21- in 2018. The patient s hospitalization on this occurrence is similar to the last psychiatric admission. Patient exhibits psychotic, delusional and paranoid behaviors. Patient was admitted on involuntary to [facility] after she walked into [facility] demanding to see her therapist. She was agitated, accusatory and paranoid. Patients case filler reported that patient has been decompensating and became so paranoid that she had her heat and electricity turned off in her apartment. When patients son corroborated the returned case inspector reports of her mental health decline, patient stated that her son was not her real son and that he was an imposter, as well as, reporting that her granddaughter had been kidnapped. Initially on the unit, patient refused to eat any food, reporting that the hospital staff was trying to poison her or feed her rotten food. 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 She has demonstrated that she has poor insight and poor judgment, remains very aggressive and threatening with staff and peers, refusing to take medications consistently that will stabilize her, and she refuses to sign releases for her case filler or son. She has attempted to elope from the unit by crawling under the nurses station in order to not be seen. She has received emergent medications for her aggressiveness and has had to be restrained multiple times. She is often heard raising her voice and demanding to be discharged and accusing everyone of kidnapping her. She continues to have a hostile demeanor and is often pacing the hallways yelling profanities. 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 She also became irate when she was told she could not be discharged to record any of her new songs. She believes that the medications that are prescribed to her are ones that are purchased from drug dealers and this is why she cannot adhere to the medication regimen. She walks on the unit very angrily, rambling about quack doctors and becomes very focused on being held against her will. Initially patient was prescribed Olanzapine 5 mg twice daily. Patient initially did not take medications after much encouragement she did take several doses but has since discontinued taking any medications. She then was prescribed Risperdal in hopes that she would take the oral and eventually the long acting injectable. At this time, the patient has not stabilized. She continues to refuse medications and has not followed the treatment plan. She is refusing all recommendation of medications that will benefit and stabilize her. Throughout this hospitalization, she has not consistently taken medications. She is very mistrustful and demonstrates very little insight. She is incapable of making good and sound choices due to her mental illness and lacks capacity to make reasonable decisions. Course of Treatment recommended by Treating Provider: -Risperdal in doses of 1- 4 mg by mouth, daily for 2 weeks and if she would tolerate it, she would be able to receive treatment with Invega Sustenna 234 milligrams IM, loading dose IM injection and if she would be able to tolerate it, she would receive Invega Sustenna 156 mg maintenance dose IM injection 3-7 days later after initial loading dose. Invega Sustenna 234 milligrams IM would continue monthly. Reasonable Alternatives if any: - If Risperdal would not be tolerated or if it would produce allergic reactions or if it would fail to produce reasonable results in a reasonable time, there are several alternative proposals: -Haldol 5 mgs up to a total of 20 mgs daily in divided doses and if she has a positive response to Haldol, she will receive Haldol long acting injectable once per month, 50-200 mgs intramuscular injection. This dose would be related to the current well tolerated oral dose of Haldol, at a rate of 10-20 times oral dose approximated. -If she would not tolerate the above mentioned doses of Haldol or if she would develop an allergic reaction, she could be offered Abilify 10 mgs PO at bedtime and titrate accordingly to a maximum of 30 mgs PO daily in divided doses as tolerated for symptoms of psychosis. If the oral formulation for this medication is well tolerated, she will be able to start treatment with Abilify Maintenna 400 mgs. IM monthly. -Additionally, the patient would receive Cogentin 0.5 mgs to 4 mgs daily in divided doses in case that Parkinsonian symptoms would become evident -If the patient becomes a danger to self or others while hospitalized, she will receive Haldol 5-10 mgs. IM, Ativan 1-2 mgs IM and Benadryl 25-50 mgs IM if she needs to be restrained. 3.-Has patient been tried on proposed treatment: Yes this is patient has had one other psychiatric admission and her last hospitalization she was on Risperdal oral and subsequently she was discharged on this medication. Since the beginning of this admission, she has vehemently proclaimed that she does not need medications 4.-Anticipated Benefits of Proposed Treatment: Mood Stabilization, improvement in psychotic, delusional and paranoid symptoms, improved ability to take care of herself, especially in regards to taking her medications. The benefits for patient taking medications at this early stage will improve nursing home prognosis. It will improve her ability to communicate without delusional thinking. The treatment teams hope is that patient will return to living in the community independently. 5.-Reasonable foreseeable adverse effects: As with all second generation antipsychotics there is a potential for EPS and metabolic syndrome. Patients compliance with medications will stabilize him. The patient will be closely monitored for signs and symptoms of EPS. There is a risk for rigidity, stiffness, or tardive dyskinesia. The patient will be prescribed an anticholinergic to reduce or prevent side effects if observed or reported. The patient will be monitored for cardiometabolic syndrome and Hemoglobin A1C, body mass index, cholesterol will be equally monitored for increased risk. 6.-Prognosis without treatment: Extremely poor. The delusional and paranoid that she is exhibiting will continue to impair her social, occupational, interpersonal life and without treatment she will exhibit these symptoms for a long period of time. Patients capacity: 1. The following have been explained to the patient a. Condition: Yes b. Proposed treatment: Yes c. Anticipated benefits of treatment: Yes d. Availability if any other treatment and comparison of benefits and risk with proposed treatment: Yes 2. State nature of patients objection to treatment: Use patients own words whenever possible. Patient states, I do not need medications from you, you arent even my doctor, my doctor said I dont need any medications! The patient currently is oppositional. She has not followed treatment regimen. She refuses to take medications daily. 3. Opinion on patients capacity: At this time, the patients capacity is severely impaired. The exacerbation of her psychosis is a barrier to her abil ity to be rational and understand the consequences of her being unmedicated. 4. Potential for Dangerous Behavior: a. Is the patient is believed to be potentially dangerous to others? Yes, she has poor insight and judgment and appears to have a belief that all she does not need any medications. Without treatment she can be very irritable and she could be aggressive to others since she is extremely paranoid and she is already a danger to herself because she is neglecting her mental and physical health. b. Is the patient dangerous to self? Yes. She is extremely paranoid, and delusional thinking clouds her judgement and at this time she is refusing medications, her psychiatric condition continues to declines. She lacks awareness of her illness which resulted in a relapse. The relationship between impaired insight and medication adherence is invariably statistically significant with many patients who have serious illnesses. In addition to the aforesaid medications and treatments, [facility] er, through Evelyn Yepez MD and/or other physicians and/or hospital under the jurisdiction of the [facility] Office of Mental Health to which the patient may be transferred, through its physician and/or other authorized and qualified health care employees, pursuant to the supervisions of such physicians, are hereby granted permission and authorized to administer to the patient, Leia Goldberg, such tests, including history and physical, vital signs, electrocardiogram, COVID-19 testing, and/or laboratory and/or blood and/or urine samples, as may be necessary to monitor the patients blood pressure, vitals, therapeutic level of medications, and/or potential adverse effects of medications and/or treatment. Vital Signs Vital Signs Date Time Temp Pulse Resp B/P (MAP) Pulse Ox O2 Delivery O2 Flow Rate FiO2 08/29/20 06:00 98.3 80 16 145/73 (97) 97 Room Air Home Medications Current Medications Current Medications Medications (Trade) Dose Ordered Sig/Rufina Route PRN Reason Start Time Stop Time Status Last Admin Dose Admin Acetaminophen (Tylenol Tab) 650 mg Q6HP PRN PO HEADACHE or DISCOMFORT 08/13/20 16:30 Al Hydrox/Mg Hydrox/Simethicone (Mylanta) 30 ml Q4HP PRN PO HEARTBURN/INDIGESTION 08/13/20 16:30 Diphenhydramine HCl (Benadryl) 50 mg STAT STAT IM 08/21/20 06:38 08/21/20 06:42 DC 08/21/20 06:43 Diphenhydramine HCl (Benadryl) 50 mg STAT STAT IM 08/30/20 04:18 08/30/20 04:22 DC 08/30/20 04:28 Diphenhydramine HCl (Benadryl) 50 mg STAT STAT IM 08/16/20 01:31 08/16/20 01:34 DC 08/16/20 01:43 Haloperidol (Haldol) 5 mg STAT STAT IM 08/30/20 04:18 08/30/20 04:22 DC 08/30/20 04:28 Haloperidol (Haldol) 10 mg STAT STAT IM 08/21/20 06:38 08/21/20 06:42 DC 08/21/20 06:44 Haloperidol (Haldol) 10 mg STAT STAT IM 08/16/20 01:31 08/16/20 01:34 DC 08/16/20 01:43 Hydroxyzine HCl (Atarax) 10 mg BIDP PRN PO ANXIETY 08/13/20 16:30 08/20/20 06:45 Lisinopril (Prinivil) 5 mg DAILY PO 08/14/20 09:00 Lorazepam (Ativan) 1 mg STAT STAT IM 08/13/20 07:10 08/13/20 07:11 DC 08/13/20 07:56 Lorazepam (Ativan) 1 mg STAT STAT PO 08/13/20 14:48 08/13/20 14:49 DC Lorazepam (Ativan) 2 mg STAT STAT IM 08/21/20 06:38 08/21/20 06:42 DC 08/21/20 06:43 Lorazepam (Ativan) 2 mg STAT STAT IM 08/30/20 04:18 08/30/20 04:22 DC 08/30/20 04:28 Lorazepam (Ativan) 2 mg STAT STAT IM 08/16/20 01:31 08/16/20 01:34 DC 08/16/20 01:44 Magnesium Hydroxide (Milk Of Magnesia) 30 ml DAILYPRN PRN PO CONSTIPATION 08/13/20 16:30 Non-Formulary Medication ( See Comment Field Below ) SEE COMMENTS SECT... 1T@10 ID 08/28/20 10:00 08/26/20 10:04 DC Olanzapine (ZyPREXA) 5 mg BID PO 08/14/20 09:00 09/01/20 12:01 DC 08/28/20 19:42 Paliperidone (Invega) 3 mg QHS PO 09/01/20 21:00 Risperidone (RisperDAL) 3 mg QHS PO 08/13/20 21:00 08/14/20 09:00 DC Trazodone HCl (Desyrel) 50 mg QHSP PRN PO INSOMNIA 08/13/20 16:30 Allergies Coded Allergies: SEAFOOD (Unverified Allergy, Severe, THROAT SWELLING, 08/19/04) Bleach (Sodium Hypochlorite) (Verified Allergy, Intermediate, RASH, 05/24/19) Iodine and Iodide Containing Produc (Verified Allergy, Unknown, 03/06/19) shellfish derived (Verified Allergy, Unknown, 05/24/19) DANYA BURRELL NP Sep 02, 2020 13:49
[2020-09-02] MEDS: PALIPERIDONE 3 MG ER TAB (INVEGA) PO SCH (21:00)
[2020-09-03] MEDS: lisinopriL 5 MG TAB PO SCH (09:00)
--- NOTE | 2020-09-03 15:05 | MHIPNPDOC ---
[facility] Progress Note Progress Note DATE OF SERVICE: 09/03/20 HISTORY: Patient is a 59 -year-old , female, who per ED reports, was at [facility] where she was agitated and psychotic, walked into the clinic without an appointment demanding to see her therapist. She was highly agitated, profane & accusatory/paranoid. Patient's hospice care consultant was contacted, who reported patient has become so paranoid that she had her heat and electricity turned off and does not have adequate food. chiropractic practice manager advised patient be brought to [facility] on a pickle processor order. When police arrived, patient was talking to her son, who had also reported patient had been decompensating. Patient then stated that her son was not her real son and instead was an imposter and reported her grand daughter has been kidnapped as well, which her son confirmed was untrue. Per patient, she stated that she was walking by her brother's house, who she hasn't spoken to in over a year, and looked into his house through the window and saw that stuff was missing so went the police station to file a report. She stated that She reported that her brother was supposed to call her to clean out the lower apartment but never called her. She stated that when she got to the police station, the police told her they would send over Maurice [place], her nephew to handle the case and instead a few different police officers arrived, threw her up against the car and then brought her here and she is unsure why. VITAL SIGNS: See below. NEW TEST RESULTS: CURRENT MEDICATIONS: See below. MENTAL STATUS EXAMINATION: Patient is a 59-year old Single, Disabled, Domiciled, Female, who was brought to the ED for bizarre behaviors when she arrived at [facility] demanding to see a therapist. Patient is dressed in personal clothing. General Appearance: does not appear stated age (appears older than stated age), hospital scrubs/clothing, masculine facial features and voice Build: thin Demeanor: hostile, guarded Eye Contact: Intense Activity: agitated, hostile Behavior: uncooperative, resistant, restless Speech: clear, normal volume, other (stuttering at times ) Mood: angry, irritable Affect: congruent, hostile Thought Process: loose, other (delusional - believes she was brought here on different circumstances than what ED reports, see H&P) Thought Content (Delusions): bizarre, denies SI, HI, AVH, paranoia, delusions (see HPI- believes she was brought here under different circumstances than what ED reports ) Thought Content (Other): guarded, appears paranoid, other (delusional) Thought Content (Aggressive): none reported, observed to be agitated, irritable Perception (Hallucinations): patient is paranoid and will not discuss mental illness Perception (Other): none reported Cognition (Impairment of): memory (p), ability to abstract Cognition(Intelligence Est.): average Oriented: Awake, Alert, Oriented tp person place, believes she has been here 2 months Insight: poor Judgment: Poor Psychosis: Psychotic Perceptions (delusional) DIAGNOSES: Unspecified schizophrenia and other psychotic disorder Tobacco use disorder ASSESSMENT: Patient is a 59 year old, Single, Disabled, Domiciled Female, who re jenaro with poor insight, judgment and is significantly paranoid. She was observed to be pacing the floor, muttering, staying around office door, peering in occasionally. In today's interview, Leia remains paranoid, with poor insight and judgment. 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 It was reinforced with patient that she needs to take medications. She then became angry, stood up and yelled, "I'm not taking any medications, you can't do this, it's illegal, have a good day!" and left the interview abruptly. She came back to the office shortly after, stating, "you mean I can't record my songs either?" This press writer again, stated that she was not going home today. She left interview abruptly, putting middle finger up at this press writer. Staff reported she continued to become irritable in the halls, yelling and swearing. While this press writer was seeing other patients in the cuevas, she reported in an irritable tone, "I'm leaving today, I don't care if you discharge me or not!" "You are just a quack , get off the street corner and get a real job!". Management plan Pursue TOO continue all medications Time spent 25 minutes Vital Signs Vital Signs Date Time Temp Pulse Resp B/P (MAP) Pulse Ox O2 Delivery O2 Flow Rate FiO2 08/29/20 06:00 98.3 80 16 145/73 (97) 97 Room Air Current Medications Current Medications Medications (Trade) Dose Ordered Sig/Rufina Route PRN Reason Start Time Stop Time Status Last Admin Dose Admin Acetaminophen (Tylenol Tab) 650 mg Q6HP PRN PO HEADACHE or DISCOMFORT 08/13/20 16:30 Al Hydrox/Mg Hydrox/Simethicone (Mylanta) 30 ml Q4HP PRN PO HEARTBURN/INDIGESTION 08/13/20 16:30 Diphenhydramine HCl (Benadryl) 50 mg STAT STAT IM 08/21/20 06:38 08/21/20 06:42 DC 08/21/20 06:43 Diphenhydramine HCl (Benadryl) 50 mg STAT STAT IM 08/30/20 04:18 08/30/20 04:22 DC 08/30/20 04:28 Diphenhydramine HCl (Benadryl) 50 mg STAT STAT IM 08/16/20 01:31 08/16/20 01:34 DC 08/16/20 01:43 Haloperidol (Haldol) 5 mg STAT STAT IM 08/30/20 04:18 08/30/20 04:22 DC 08/30/20 04:28 Haloperidol (Haldol) 10 mg STAT STAT IM 08/21/20 06:38 08/21/20 06:42 DC 08/21/20 06:44 Haloperidol (Haldol) 10 mg STAT STAT IM 08/16/20 01:31 08/16/20 01:34 DC 08/16/20 01:43 Hydroxyzine HCl (Atarax) 10 mg BIDP PRN PO ANXIETY 08/13/20 16:30 08/20/20 06:45 Lisinopril (Prinivil) 5 mg DAILY PO 08/14/20 09:00 Lorazepam (Ativan) 1 mg STAT STAT IM 08/13/20 07:10 08/13/20 07:11 DC 08/13/20 07:56 Lorazepam (Ativan) 1 mg STAT STAT PO 08/13/20 14:48 08/13/20 14:49 DC Lorazepam (Ativan) 2 mg STAT STAT IM 08/21/20 06:38 08/21/20 06:42 DC 08/21/20 06:43 Lorazepam (Ativan) 2 mg STAT STAT IM 08/30/20 04:18 08/30/20 04:22 DC 08/30/20 04:28 Lorazepam (Ativan) 2 mg STAT STAT IM 08/16/20 01:31 08/16/20 01:34 DC 08/16/20 01:44 Magnesium Hydroxide (Milk Of Magnesia) 30 ml DAILYPRN PRN PO CONSTIPATION 08/13/20 16:30 Non-Formulary Medication ( See Comment Field Below ) SEE COMMENTS SECT... 1T@10 ID 08/28/20 10:00 08/26/20 10:04 DC Olanzapine (ZyPREXA) 5 mg BID PO 08/14/20 09:00 09/01/20 12:01 DC 08/28/20 19:42 Paliperidone (Invega) 3 mg QHS PO 09/01/20 21:00 Risperidone (RisperDAL) 3 mg QHS PO 08/13/20 21:00 08/14/20 09:00 DC Trazodone HCl (Desyrel) 50 mg QHSP PRN PO INSOMNIA 08/13/20 16:30 Allergies Coded Allergies: SEAFOOD (Unverified Allergy, Severe, THROAT SWELLING, 08/19/04) Bleach (Sodium Hypochlorite) (Verified Allergy, Intermediate, RASH, 05/24/19) Iodine and Iodide Containing Produc (Verified Allergy, Unknown, 03/06/19) shellfish derived (Verified Allergy, Unknown, 05/24/19) MARCUS DEAL NP Sep 03, 2020 15:05
[2020-09-03] MEDS: PALIPERIDONE 3 MG ER TAB (INVEGA) PO SCH (21:09)
[2020-09-04 06:33] VITALS: BP 149/83
[2020-09-04] MEDS: lisinopriL 5 MG TAB PO SCH (08:51)
[2020-09-04] MEDS ORDERED: LORazepam 2 MG/ML VIAL IM ONE (10:30)
[2020-09-04] MEDS ORDERED: HALOPERIDOL 5MG/ML VIAL (J1630 PER 1) IM ONE (10:30)
--- NOTE | 2020-09-04 15:49 | MHIPNPDOC ---
[facility] Progress Note Progress Note DATE OF SERVICE: 09/05/20 DATE OF SERVICE: 09/04/20 HISTORY: Patient is a 59 -year-old , female, who per ED reports, was at [facility] where she was agitated and psychotic, walked into the clinic without an appointment demanding to see her therapist. She was highly agitated, profane & accusatory/paranoid. Patient's acute care nurse practitioner was contacted, who reported patient has become so paranoid that she had her heat and electricity turned off and does not have adequate food. manager it security advised patient be brought to [facility] on a mixing picker tender order. When police arrived, patient was talking to her son, who had also reported patient had been decompensating. Patient then stated that her son was not her real son and instead was an imposter and reported her grand daughter has been kidnapped as well, which her son confirmed was untrue. Per patient, she stated that she was walking by her brother's house, who she hasn't spoken to in over a year, and looked into his house through the window and saw that stuff was missing so went the police station to file a report. She stated that She reported that her brother was supposed to call her to clean out the lower apartment but never called her. She stated that when she got to the police station, the police told her they would send over Maurice [place], her nephew to handle the case and instead a few different police officers arrived, threw her up against the car and then brought her here and she is unsure why. VITAL SIGNS: See below. NEW TEST RESULTS: CURRENT MEDICATIONS: See below. MENTAL STATUS EXAMINATION: Patient is a 59-year old Single, Disabled, Domiciled, Female, who was brought to the ED for bizarre behaviors when she arrived at [facility] demanding to see a therapist. Patient is dressed in personal clothing. General Appearance: does not appear stated age (appears older than stated age), hospital scrubs/clothing, masculine facial features and voice Build: thin Demeanor: hostile, guarded Eye Contact: Intense Activity: agitated, hostile Behavior: uncooperative, resistant, restless Speech: clear, normal volume, other (stuttering at times ) Mood: angry, irritable Affect: congruent, hostile Thought Process: loose, other (delusional - believes she was brought here on different circumstances than what ED reports, see H&P) Thought Content (Delusions): bizarre, denies SI, HI, AVH, paranoia, delusions (see HPI- believes she was brought here under different circumstances than what ED reports ) Thought Content (Other): guarded, appears paranoid, other (delusional) Thought Content (Aggressive): none reported, observed to be agitated, irritable Perception (Hallucinations): patient is paranoid and will not discuss mental illness Perception (Other): none reported Cognition (Impairment of): memory (p), ability to abstract Cognition(Intelligence Est.): average Oriented: Awake, Alert, Oriented tp person place, believes she has been here 2 months Insight: poor Judgment: Poor Psychosis: Psychotic Perceptions (delusional) DIAGNOSES: Unspecified schizophrenia and other psychotic disorder Tobacco use disorder ASSESSMENT: Leia remains significantly paranoid, but is less angry today, able to sit and talk to this inerview . She is focused on her breakfast tray, states that she did not receive one and, "I want that it my file that I didn't get one, it's not that I don't want to eat." She reports that her friend filled out her menus "days ago, before she left" and that she has not been receiving her food. Per staff, Leia has not been filling out menus, despite reinforcement and encouragement, keeps stating that her friend already filled them out. Leia has approached the office multiple times this morning, wanting to talk about her breakfast tray. She believes that staff and other patient's are stealing people's food, refers to them as "scum bags" and that staff and patients are "in on it together." She reports that she tried to tell other staff but "they just laugh and think its funny, then they try to slide new menus in like its noth ing." She states, "I can't wait to go home so they don't touch my plate, thats just wrong." She states that the nurse cell manager killed her son is the emergency room last summer and that she believes that the nurse cell manager is putting her inpatient in order to "cover it up, but I know what happened." She reports has already notified Senator Jaclyn Alfonso and Rena Apodaca, the head vmware administrator of [facility]. She reports that she no longer wants her assigned planner because he gave her the phone number to a dental office twice when she wanted the phone number to mental hygiened. She states, "I even told Stuart about it at [facility], she agrees with me and has a lot more certificates behind her belt than that shady." She did take her medications last night per OCT. She still remains with poor insight and judgment and her level of paranoia does not make her safe for discharge at this time. Management plan Pursue TOO continue all medications Time spent 25 minutes Vital Signs Vital Signs Date Time Temp Pulse Resp B/P (MAP) Pulse Ox O2 Delivery O2 Flow Rate FiO2 09/04/20 06:33 97.5 77 18 149/83 (105) 100 Room Air Current Medications Current Medications Medications (Trade) Dose Ordered Sig/Rufina Route PRN Reason Start Time Stop Time Status Last Admin Dose Admin Acetaminophen (Tylenol Tab) 650 mg Q6HP PRN PO HEADACHE or DISCOMFORT 08/13/20 16:30 Al Hydrox/Mg Hydrox/Simethicone (Mylanta) 30 ml Q4HP PRN PO HEARTBURN/INDIGESTION 08/13/20 16:30 Diphenhydramine HCl (Benadryl) 50 mg STAT STAT IM 08/21/20 06:38 08/21/20 06:42 DC 08/21/20 06:43 Diphenhydramine HCl (Benadryl) 50 mg STAT STAT IM 08/30/20 04:18 08/30/20 04:22 DC 08/30/20 04:28 Diphenhydramine HCl (Benadryl) 50 mg STAT STAT IM 08/16/20 01:31 08/16/20 01:34 DC 08/16/20 01:43 Haloperidol (Haldol) 5 mg STAT STAT IM 08/30/20 04:18 08/30/20 04:22 DC 08/30/20 04:28 Haloperidol (Haldol) 10 mg STAT STAT IM 08/21/20 06:38 08/21/20 06:42 DC 08/21/20 06:44 Haloperidol (Haldol) 10 mg STAT STAT IM 08/16/20 01:31 08/16/20 01:34 DC 08/16/20 01:43 Hydroxyzine HCl (Atarax) 10 mg BIDP PRN PO ANXIETY 08/13/20 16:30 08/20/20 06:45 Lisinopril (Prinivil) 5 mg DAILY PO 08/14/20 09:00 Lorazepam (Ativan) 1 mg STAT STAT IM 08/13/20 07:10 08/13/20 07:11 DC 08/13/20 07:56 Lorazepam (Ativan) 1 mg STAT STAT PO 08/13/20 14:48 08/13/20 14:49 DC Lorazepam (Ativan) 2 mg STAT STAT IM 08/21/20 06:38 08/21/20 06:42 DC 08/21/20 06:43 Lorazepam (Ativan) 2 mg STAT STAT IM 08/30/20 04:18 08/30/20 04:22 DC 08/30/20 04:28 Lorazepam (Ativan) 2 mg STAT STAT IM 08/16/20 01:31 08/16/20 01:34 DC 08/16/20 01:44 Magnesium Hydroxide (Milk Of Magnesia) 30 ml DAILYPRN PRN PO CONSTIPATION 08/13/20 16:30 Non-Formulary Medication ( See Comment Field Below ) SEE COMMENTS SECT... 1T@10 ID 08/28/20 10:00 08/26/20 10:04 DC Olanzapine (ZyPREXA) 5 mg BID PO 08/14/20 09:00 09/01/20 12:01 DC 08/28/20 19:42 Paliperidone (Invega) 3 mg QHS PO 09/01/20 21:00 09/03/20 21:09 Risperidone (RisperDAL) 3 mg QHS PO 08/13/20 21:00 08/14/20 09:00 DC Trazodone HCl (Desyrel) 50 mg QHSP PRN PO INSOMNIA 08/13/20 16:30 Allergies Coded Allergies: SEAFOOD (Unverified Allergy, Severe, THROAT SWELLING, 08/19/04) Bleach (Sodium Hypochlorite) (Verified Allergy, Intermediate, RASH, 05/24/19) Iodine and Iodide Containing Produc (Verified Allergy, Unknown, 03/06/19) shellfish derived (Verified Allergy, Unknown, 05/24/19) MARCUS DEAL NP 28, 2021 15:49
[2020-09-04] MEDS: PALIPERIDONE 3 MG ER TAB (INVEGA) PO SCH (20:13)
[2020-09-05 06:21] VITALS: BP 158/98
--- NOTE | 2020-09-05 08:19 | MHIPNPDOC ---
[facility] Progress Note Progress Note DATE OF SERVICE: 09/05/20 HISTORY: Patient is a 59 -year-old , female, who per ED reports, was at [facility] where she was agitated and psychotic, walked into the clinic without an appointment demanding to see her therapist. She was highly agitated, profane & accusatory/paranoid. Patient's aged or disabled carer was contacted, who reported patient has become so paranoid that she had her heat and electricity turned off and does not have adequate food. case management manager advised patient be brought to [facility] on a pickling solution maker order. When police arrived, patient was talking to her son, who had also reported patient had been decompensating. Patient then stated that her son was not her real son and instead was an imposter and reported her grand daughter has been kidnapped as well, which her son confirmed was untrue. Per patient, she stated that she was walking by her brother's house, who she hasn't spoken to in over a year, and looked into his house through the window and saw that stuff was missing so went the police station to file a report. She stated that She reported that her brother was supposed to call her to clean out the lower apartment but never called her. She stated that when she got to the police station, the police told her they would send over Maurice [place], her nephew to handle the case and instead a few different police officers arrived, threw her up against the car and then brought her here and she is unsure why. VITAL SIGNS: See below. NEW TEST RESULTS: CURRENT MEDICATIONS: See below. MENTAL STATUS EXAMINATION: Patient is a 59-year old Single, Disabled, Domiciled, Female, who was brought to the ED for bizarre behaviors when she arrived at [facility] demanding to see a therapist. Patient is dressed in personal clothing. General Appearance: does not appear stated age (appears older than stated age), hospital scrubs/clothing, masculine facial features and voice Build: thin Demeanor: hostile, guarded Eye Contact: Intense Activity: agitated, hostile Behavior: uncooperative, resistant, restless Speech: clear, normal volume, other (stuttering at times ) Mood: angry, irritable Affect: congruent, hostile Thought Process: loose, other (delusional - believes she was brought here on different circumstances than what ED reports, see H&P) Thought Content (Delusions): bizarre, denies SI, HI, AVH, paranoia, delusions (see HPI- believes she was brought here under different circumstances than what ED reports ) Thought Content (Other): guarded, appears paranoid, other (delusional) Thought Content (Aggressive): none reported, observed to be agitated, irritable Perception (Hallucinations): patient is paranoid and will not discuss mental illness Perception (Other): none reported Cognition (Impairment of): memory (p), ability to abstract Cognition(Intelligence Est.): average Oriented: Awake, Alert, Oriented tp person place, believes she has been here 2 months Insight: poor Judgment: Poor Psychosis: Psychotic Perceptions (delusional) DIAGNOSES: Unspecified schizophrenia and other psychotic disorder Tobacco use disorder ASSESSMENT: Leia remains significantly paranoid, but is less angry today. She is focused on her breakfast tray, states that she did not receive one and, "I want that it my file that I didn't get one, it's not that I don't want to eat." She reports that her friend filled out her menus "days ago, before she left" and that she has not been receiving her food. Per staff, Leia has not been filling out menus, despite reinforcement and encouragement, keeps stating that her friend already filled them out. Leia has approached the office multiple times this morning, wanting to talk about her breakfast tray. She believes that staff and other patient's are stealing people's food, refers to them as "scum bags." She reports that she tried to tell staff but "they just laugh and think its funny, then they try to slide new menus in like its nothing." She states, "I can't wait to go home so they don't touch my plate, thats just wrong." She did take her medications last night per OCT. She still remains with poor insight and judgment and her level of paranoia does not make her safe for discharge at this time. Management plan Pursue TOO continue all medications Time spent 25 minutes Vital Signs Vital Signs Date Time Temp Pulse Resp B/P (MAP) Pulse Ox O2 Delivery O2 Flow Rate FiO2 09/05/20 06:21 96.6 76 16 158/98 (118) 100 Room Air Current Medications Current Medications Medications (Trade) Dose Ordered Sig/Rufina Route PRN Reason Start Time Stop Time Status Last Admin Dose Admin Acetaminophen (Tylenol Tab) 650 mg Q6HP PRN PO HEADACHE or DISCOMFORT 08/13/20 16:30 Al Hydrox/Mg Hydrox/Simethicone (Mylanta) 30 ml Q4HP PRN PO HEARTBURN/INDIGESTION 08/13/20 16:30 Diphenhydramine HCl (Benadryl) 50 mg STAT STAT IM 08/21/20 06:38 08/21/20 06:42 DC 08/21/20 06:43 Diphenhydramine HCl (Benadryl) 50 mg STAT STAT IM 08/30/20 04:18 08/30/20 04:22 DC 08/30/20 04:28 Diphenhydramine HCl (Benadryl) 50 mg STAT STAT IM 08/16/20 01:31 08/16/20 01:34 DC 08/16/20 01:43 Haloperidol (Haldol) 5 mg STAT STAT IM 08/30/20 04:18 08/30/20 04:22 DC 08/30/20 04:28 Haloperidol (Haldol) 10 mg STAT STAT IM 08/21/20 06:38 08/21/20 06:42 DC 08/21/20 06:44 Haloperidol (Haldol) 10 mg STAT STAT IM 08/16/20 01:31 08/16/20 01:34 DC 08/16/20 01:43 Hydroxyzine HCl (Atarax) 10 mg BIDP PRN PO ANXIETY 08/13/20 16:30 08/20/20 06:45 Lisinopril (Prinivil) 5 mg DAILY PO 08/14/20 09:00 Lorazepam (Ativan) 1 mg STAT STAT IM 08/13/20 07:10 08/13/20 07:11 DC 08/13/20 07:56 Lorazepam (Ativan) 1 mg STAT STAT PO 08/13/20 14:48 08/13/20 14:49 DC Lorazepam (Ativan) 2 mg STAT STAT IM 08/21/20 06:38 08/21/20 06:42 DC 08/21/20 06:43 Lorazepam (Ativan) 2 mg STAT STAT IM 08/30/20 04:18 08/30/20 04:22 DC 08/30/20 04:28 Lorazepam (Ativan) 2 mg STAT STAT IM 08/16/20 01:31 08/16/20 01:34 DC 08/16/20 01:44 Magnesium Hydroxide (Milk Of Magnesia) 30 ml DAILYPRN PRN PO CONSTIPATION 08/13/20 16:30 Non-Formulary Medication ( See Comment Field Below ) SEE COMMENTS SECT... 1T@10 ID 08/28/20 10:00 08/26/20 10:04 DC Olanzapine (ZyPREXA) 5 mg BID PO 08/14/20 09:00 09/01/20 12:01 DC 08/28/20 19:42 Paliperidone (Invega) 3 mg QHS PO 09/01/20 21:00 09/04/20 20:13 Risperidone (RisperDAL) 3 mg QHS PO 08/13/20 21:00 08/14/20 09:00 DC Trazodone HCl (Desyrel) 50 mg QHSP PRN PO INSOMNIA 08/13/20 16:30 Allergies Coded Allergies: SEAFOOD (Unverified Allergy, Severe, THROAT SWELLING, 08/19/04) Bleach (Sodium Hypochlorite) (Verified Allergy, Intermediate, RASH, 05/24/19) Iodine and Iodide Containing Produc (Verified Allergy, Unknown, 03/06/19) shellfish derived (Verified Allergy, Unknown, 05/24/19) SATURNINO SALAS Sep 05, 2020 08:00
[2020-09-05] MEDS: lisinopriL 5 MG TAB PO SCH (08:51)
[2020-09-05] MEDS: PALIPERIDONE 3 MG ER TAB (INVEGA) PO SCH (19:52)
[2020-09-06] MEDS: lisinopriL 5 MG TAB PO SCH (09:00)
[2020-09-06 18:09] VITALS: BP 135/76
[2020-09-06] MEDS: PALIPERIDONE 3 MG ER TAB (INVEGA) PO SCH (19:08)
[2020-09-07] MEDS: lisinopriL 5 MG TAB PO SCH (08:41)
[2020-09-07] MEDS: PALIPERIDONE 3 MG ER TAB (INVEGA) PO SCH (19:55)
[2020-09-08] MEDS: lisinopriL 5 MG TAB PO SCH (09:00)
--- NOTE | 2020-09-08 09:29 | MHIPNPDOC ---
[facility] Progress Note Progress Note DATE OF SERVICE: 09/05/20 HISTORY: Patient is a 59 -year-old , female, who per ED reports, was at [facility] where she was agitated and psychotic, walked into the clinic without an appointment demanding to see her therapist. She was highly agitated, profane & accusatory/paranoid. Patient's care tech was contacted, who reported patient has become so paranoid that she had her heat and electricity turned off and does not have adequate food. geriatric care manager advised patient be brought to [facility] on a continuous pickling line pickler helper order. When police arrived, patient was talking to her son, who had also reported patient had been decompensating. Patient then stated that her son was not her real son and instead was an imposter and reported her grand daughter has been kidnapped as well, which her son confirmed was untrue. Per patient, she stated that she was walking by her brother's house, who she hasn't spoken to in over a year, and looked into his house through the window and saw that stuff was missing so went the police station to file a report. She stated that She reported that her brother was supposed to call her to clean out the lower apartment but never called her. She stated that when she got to the police station, the police told her they would send over Maurice Haworth, her nephew to handle the case and instead a few different police officers arrived, threw her up against the car and then brought her here and she is unsure why. VITAL SIGNS: See below. NEW TEST RESULTS: CURRENT MEDICATIONS: See below. MENTAL STATUS EXAMINATION: Patient is a 59-year old Single, Disabled, Domiciled, Female, who was brought to the ED for bizarre behaviors when she arrived at [facility] demanding to see a therapist. Patient is dressed in personal clothing. General Appearance: does not appear stated age (appears older than stated age), hospital scrubs/clothing, masculine facial features and voice Build: thin Demeanor: hostile, guarded Eye Contact: Intense Activity: agitated, hostile Behavior: uncooperative, resistant, restless Speech: clear, normal volume, other (stuttering at times ) Mood: angry, irritable Affect: congruent, hostile Thought Process: loose, other (delusional - believes she was brought here on different circumstances than what ED reports, see H&P) Thought Content (Delusions): bizarre, denies SI, HI, AVH, paranoia, delusions (see HPI- believes she was brought here under different circumstances than what ED reports ) Thought Content (Other): guarded, appears paranoid, other (delusional) Thought Content (Aggressive): none reported, observed to be agitated, irritable Perception (Hallucinations): patient is paranoid and will not discuss mental illness Perception (Other): none reported Cognition (Impairment of): memory (p), ability to abstract Cognition(Intelligence Est.): average Oriented: Awake, Alert, Oriented tp person place, believes she has been here 2 months Insight: poor Judgment: Poor Psychosis: Psychotic Perceptions (delusional) DIAGNOSES: Unspecified schizophrenia and other psychotic disorder Tobacco use disorder ASSESSMENT: Leia remains significantly paranoid, but is less angry today. She is focused on her breakfast tray, states that she did not receive one and, "I want that it my file that I didn't get one, it's not that I don't want to eat." She reports that her friend filled out her menus "days ago, before she left" and that she has not been receiving her food. Per staff, Leia has not been filling out menus, despite reinforcement and encouragement, keeps stating that her friend already filled them out. Leia has approached the office multiple times this morning, wanting to talk about her breakfast tray. She believes that staff and other patient's are stealing people's food, refers to them as "scum bags." She reports that she tried to tell staff but "they just laugh and think its funny, then they try to slide new menus in like its nothing." She states, "I can't wait to go home so they don't touch my plate, thats just wrong." She did take her medications last night per OCT. She still remains with poor insight and judgment and her level of paranoia does not make her safe for discharge at this time. Management plan Pursue TOO continue all medications Time spent 25 minutes Vital Signs Vital Signs Date Time Temp Pulse Resp B/P (MAP) Pulse Ox O2 Delivery O2 Flow Rate FiO2 09/08/20 06:59 18 09/07/20 09:02 Room Air 09/06/20 18:09 97.5 18 135/76 (95) 09/05/20 06:21 100 Current Medications Current Medications Medications (Trade) Dose Ordered Sig/Rufina Route PRN Reason Start Time Stop Time Status Last Admin Dose Admin Acetaminophen (Tylenol Tab) 650 mg Q6HP PRN PO HEADACHE or DISCOMFORT 08/13/20 16:30 Al Hydrox/Mg Hydrox/Simethicone (Mylanta) 30 ml Q4HP PRN PO HEARTBURN/INDIGESTION 08/13/20 16:30 Diphenhydramine HCl (Benadryl) 50 mg STAT STAT IM 08/21/20 06:38 08/21/20 06:42 DC 08/21/20 06:43 Diphenhydramine HCl (Benadryl) 50 mg STAT STAT IM 08/30/20 04:18 08/30/20 04:22 DC 08/30/20 04:28 Diphenhydramine HCl (Benadryl) 50 mg STAT STAT IM 08/16/20 01:31 08/16/20 01:34 DC 08/16/20 01:43 Haloperidol (Haldol) 5 mg STAT STAT IM 08/30/20 04:18 08/30/20 04:22 DC 08/30/20 04:28 Haloperidol (Haldol) 10 mg STAT STAT IM 08/21/20 06:38 08/21/20 06:42 DC 08/21/20 06:44 Haloperidol (Haldol) 10 mg STAT STAT IM 08/16/20 01:31 08/16/20 01:34 DC 08/16/20 01:43 Hydroxyzine HCl (Atarax) 10 mg BIDP PRN PO ANXIETY 08/13/20 16:30 08/20/20 06:45 Lisinopril (Prinivil) 5 mg DAILY PO 08/14/20 09:00 Lorazepam (Ativan) 1 mg STAT STAT IM 08/13/20 07:10 08/13/20 07:11 DC 08/13/20 07:56 Lorazepam (Ativan) 1 mg STAT STAT PO 08/13/20 14:48 08/13/20 14:49 DC Lorazepam (Ativan) 2 mg STAT STAT IM 08/21/20 06:38 08/21/20 06:42 DC 08/21/20 06:43 Lorazepam (Ativan) 2 mg STAT STAT IM 08/30/20 04:18 08/30/20 04:22 DC 08/30/20 04:28 Lorazepam (Ativan) 2 mg STAT STAT IM 08/16/20 01:31 08/16/20 01:34 DC 08/16/20 01:44 Magnesium Hydroxide (Milk Of Magnesia) 30 ml DAILYPRN PRN PO CONSTIPATION 08/13/20 16:30 Non-Formulary Medication ( See Comment Field Below ) SEE COMMENTS SECT... 1T@10 ID 08/28/20 10:00 08/26/20 10:04 DC Olanzapine (ZyPREXA) 5 mg BID PO 08/14/20 09:00 09/01/20 12:01 DC 08/28/20 19:42 Paliperidone (Invega) 3 mg QHS PO 09/01/20 21:00 09/07/20 19:55 Risperidone (RisperDAL) 3 mg QHS PO 08/13/20 21:00 08/14/20 09:00 DC Trazodone HCl (Desyrel) 50 mg QHSP PRN PO INSOMNIA 08/13/20 16:30 Allergies Coded Allergies: SEAFOOD (Unverified Allergy, Severe, THROAT SWELLING, 08/19/04) Bleach (Sodium Hypochlorite) (Verified Allergy, Intermediate, RASH, ) Iodine and Iodide Containing Produc (Verified Allergy, Unknown, 03/06/19) shellfish derived (Verified Allergy, Unknown, 05/24/19) MARCUS DEAL NP Sep 08, 2020 09:29
--- NOTE | 2020-09-08 10:04 | MHIPNPDOC ---
[facility] Progress Note Progress Note DATE OF SERVICE: 09/08/20 DATE OF SERVICE: 09/05/20 HISTORY: Patient is a 59 -year-old , female, who per ED reports, was at [facility] where she was agitated and psychotic, walked into the clinic without an appointment demanding to see her therapist. She was highly agitated, profane & accusatory/paranoid. Patient's customer care associate was contacted, who reported patient has become so paranoid that she had her heat and electricity turned off and does not have adequate food. biodiesel plant manager advised patient be brought to [facility] on a black pickler order. When police arrived, patient was talking to her son, who had also reported patient had been decompensating. Patient then stated that her son was not her real son and instead was an imposter and reported her grand daughter has been kidnapped as well, which her son confirmed was untrue. Per patient, she stated that she was walking by her brother's house, who she hasn't spoken to in over a year, and looked into his house through the window and saw that stuff was missing so went the police station to file a report. She stated that She reported that her brother was supposed to call her to clean out the lower apartment but never called her. She stated that when she got to the police station, the police told her they would send over Maurice Gratiot, her nephew to handle the case and instead a few different police officers arrived, threw her up against the car and then brought her here and she is unsure why. VITAL SIGNS: See below. NEW TEST RESULTS: CURRENT MEDICATIONS: See below. MENTAL STATUS EXAMINATION: Patient is a 59-year old Single, Disabled, Domiciled, Female, who was brought to the ED for bizarre behaviors when she arrived at [facility] demanding to see a therapist. Patient is dressed in personal clothing. General Appearance: does not appear stated age (appears older than stated age), hospital scrubs/clothing, masculine facial features and voice Build: thin Demeanor: hostile, guarded Eye Contact: Intense Activity: agitated, hostile Behavior: uncooperative, resistant, restless Speech: clear, normal volume, other (stuttering at times ) Mood: angry, irritable Affect: congruent, hostile Thought Process: loose, other (delusional - believes she was brought here on different circumstances than what ED reports, see H&P) Thought Content (Delusions): bizarre, denies SI, HI, AVH, paranoia, delusions (see HPI- believes she was brought here under different circumstances than what ED reports ) Thought Content (Other): guarded, appears paranoid, other (delusional) Thought Content (Aggressive): none reported, observed to be agitated, irritable Perception (Hallucinations): patient is paranoid and will not discuss mental illness Perception (Other): none reported Cognition (Impairment of): memory (p), ability to abstract Cognition(Intelligence Est.): average Oriented: Awake, Alert, Oriented tp person place, believes she has been here 7 months Insight: poor Judgment: Poor Psychosis: Psychotic Perceptions (delusional) DIAGNOSES: Unspecified schizophrenia and other psychotic disorder Tobacco use disorder Leia has been outside the office throughout the morning, waiting to talk. During the interview, she remains focused on discharge. She states, "Are you going to let me go home or are you lying to me? I don't trust noone. She states, "some staff are trying to tell me that I'll never leave and Jimmie is in on it too, I don't want talk to him no more - he gave me the number for a dental office and I asked for the legal office." She remains highly paranoid and irritable today. When asked if she would sign a release for her assistant case manager, She starts to become angry, stating "you are not going to talk to my assistant case manager." She states, that she will "counter gabriel" and that she needs to leave because her mother is in the penitentiary next door and "I'm the only one I can sign for her. My sister can't, only I can I don't know if she is even there anymore"." She then gets up and leaves abruptly, saying on the way out, "and every time I drink something my features look different, I'm going to have to look into that too, I don't know what that's all about." She then slams the door. Since the interview she has been pacing and stomping the halls around the office door, frequently peering in, angrily yelling profanities at this publicity writer. She has been banging on the window, yelling "you dumb cunt!" and stating "just wait until they find out you are making illegal drugs here." Later tin the afternoon, she asked for the phone number for [employer] and [employer], states that she needs to call and get them turned off in her apartment because she believes this publicity writer has been emailing people to clean out her apartment. Management plan Pursue TOO continue all medications Will offer invega sustena when patient is less paranoid Time spent 25 minutes Vital Signs Vital Signs Date Time Temp Pulse Resp B/P (MAP) Pulse Ox O2 Delivery O2 Flow Rate FiO2 09/08/20 06:59 18 09/07/20 09:02 Room Air 09/06/20 18:09 97.5 18 135/76 (95) 09/05/20 06:21 100 Current Medications Current Medications Medications (Trade) Dose Ordered Sig/Rufina Route PRN Reason Start Time Stop Time Status Last Admin Dose Admin Acetaminophen (Tylenol Tab) 650 mg Q6HP PRN PO HEADACHE or DISCOMFORT 08/13/20 16:30 Al Hydrox/Mg Hydrox/Simethicone (Mylanta) 30 ml Q4HP PRN PO HEARTBURN/INDIGESTION 08/13/20 16:30 Diphenhydramine HCl (Benadryl) 50 mg STAT STAT IM 08/21/20 06:38 08/21/20 06:42 DC 08/21/20 06:43 Diphenhydramine HCl (Benadryl) 50 mg STAT STAT IM 08/30/20 04:18 08/30/20 04:22 DC 08/30/20 04:28 Diphenhydramine HCl (Benadryl) 50 mg STAT STAT IM 08/16/20 01:31 08/16/20 01:34 DC 08/16/20 01:43 Haloperidol (Haldol) 5 mg STAT STAT IM 08/30/20 04:18 08/30/20 04:22 DC 08/30/20 04:28 Haloperidol (Haldol) 10 mg STAT STAT IM 08/21/20 06:38 08/21/20 06:42 DC 08/21/20 06:44 Haloperidol (Haldol) 10 mg STAT STAT IM 08/16/20 01:31 08/16/20 01:34 DC 08/16/20 01:43 Hydroxyzine HCl (Atarax) 10 mg BIDP PRN PO ANXIETY 08/13/20 16:30 08/20/20 06:45 Lisinopril (Prinivil) 5 mg DAILY PO 08/14/20 09:00 Lorazepam (Ativan) 1 mg STAT STAT IM 08/13/20 07:10 08/13/20 07:11 DC 08/13/20 07:56 Lorazepam (Ativan) 1 mg STAT STAT PO 08/13/20 14:48 08/13/20 14:49 DC Lorazepam (Ativan) 2 mg STAT STAT IM 08/21/20 06:38 08/21/20 06:42 DC 08/21/20 06:43 Lorazepam (Ativan) 2 mg STAT STAT IM 08/30/20 04:18 08/30/20 04:22 DC 08/30/20 04:28 Lorazepam (Ativan) 2 mg STAT STAT IM 08/16/20 01:31 08/16/20 01:34 DC 08/16/20 01:44 Magnesium Hydroxide (Milk Of Magnesia) 30 ml DAILYPRN PRN PO CONSTIPATION 08/13/20 16:30 Non-Formulary Medication ( See Comment Field Below ) SEE COMMENTS SECT... 1T@10 ID 08/28/20 10:00 08/26/20 10:04 DC Olanzapine (ZyPREXA) 5 mg BID PO 08/14/20 09:00 09/01/20 12:01 DC 08/28/20 19:42 Paliperidone (Invega) 3 mg QHS PO 09/01/20 21:00 09/07/20 19:55 Risperidone (RisperDAL) 3 mg QHS PO 08/13/20 21:00 08/14/20 09:00 DC Trazodone HCl (Desyrel) 50 mg QHSP PRN PO INSOMNIA 08/13/20 16:30 Allergies Coded Allergies: SEAFOOD (Unverified Allergy, Severe, THROAT SWELLING, 08/19/04) Bleach (Sodium Hypochlorite) (Verified Allergy, Intermediate, RASH, 05/24/19) Iodine and Iodide Containing Produc (Verified Allergy, Unknown, 03/06/19) shellfish derived (Verified Allergy, Unknown, 05/24/19) MARCUS DEAL NP Sep 08, 2020 09:56
[2020-09-08] MEDS: PALIPERIDONE 3 MG ER TAB (INVEGA) PO SCH (19:37)
[2020-09-09 06:27] VITALS: BP 145/88
[2020-09-09] MEDS: lisinopriL 5 MG TAB PO SCH (08:42)
--- NOTE | 2020-09-09 12:41 | MHIPNPDOC ---
[facility] Progress Note Progress Note DATE OF SERVICE: 09/09/20 HISTORY: Patient is a 59 -year-old , female, who per ED reports, was at [facility] where she was agitated and psychotic, walked into the clinic without an appointment demanding to see her therapist. She was highly agitated, profane & accusatory/paranoid. Patient's interior plant caretaker was contacted, who reported patient has become so paranoid that she had her heat and electricity turned off and does not have adequate food. nursing home manager advised patient be brought to [facility] on a order picker/assembler order. When police arrived, patient was talking to her son, who had also reported patient had been decompensating. Patient then stated that her son was not her real son and instead was an imposter and reported her grand daughter has been kidnapped as well, which her son confirmed was untrue. Per patient, she stated that she was walking by her brother's house, who she hasn't spoken to in over a year, and looked into his house through the window and saw that stuff was missing so went the police station to file a report. She stated that She reported that her brother was supposed to call her to clean out the lower apartment but never called her. She stated that when she got to the police station, the police told her they would send over Maurice Northumberland, her nephew to handle the case and instead a few different police officers arrived, threw her up against the car and then brought her here and she is unsure why. VITAL SIGNS: See below. NEW TEST RESULTS: CURRENT MEDICATIONS: See below. MENTAL STATUS EXAMINATION: Patient is a 59-year old Single, Disabled, Domiciled, Female, who was brought to the ED for bizarre behaviors when she arrived at [facility] demanding to see a therapist. Patient is dressed in personal clothing. General Appearance: does not appear stated age (appears older than stated age), hospital scrubs/clothing, masculine facial features and voice Build: thin Demeanor: guarded, mistrustful Eye Contact: average Activity: average Behavior: cooperative, less irritable Speech: clear, normal volume, other (stuttering at times ) Mood: somewhat irritable, improving Affect: congruent, Thought Process: loose, other (delusional - believes she was brought here on different circumstances than what ED reports, see H&P) Thought Content (Delusions): bizarre, denies SI, HI, AVH, paranoia, delusions (see HPI- believes she was brought here under different circumstances than what ED reports ) Thought Content (Other): guarded, appears paranoid, other (delusional) Thought Content (Aggressive): none reported, somewhat irritable, improving Perception (Hallucinations): patient is paranoid and will not discuss mental illness Perception (Other): none reported Cognition (Impairment of): memory (p), ability to abstract Cognition(Intelligence Est.): average Oriented: Awake, Alert, Oriented to person place, believes she has been here 7 months Insight: poor Judgment: Poor Psychosis: Psychotic Perceptions (delusional) DIAGNOSES: Unspecified schizophrenia and other psychotic disorder Tobacco use disorder Assessment: When approached, patient was irritable, initially refused to meet, told this chief underwriter she had requested a new doctor. However, when told that we would be discussing discharge, she was receptive. She walked into the interview wearing one shoe and holding the other. When asked why, patient reported she didn't have wallet. Leia was less irritable but was still mistrustful. Per MAR, she has been compliant with medications. It was discussed with patient that as long she took her medications she would discharge on . Patient was agreeable, smiled, thanked, and shook hands with this chief underwriter. She reported that she will stay on the medication because "it helps me, I told them it did." After the interview, she asked this chief underwriter, "So I really can go ? they aren't lying to me?" this chief underwriter reinforced that she must continue her medications in order to discharge . Later, after the interview, Leia approached this chief underwriter stating staff gave her a liquid diet, believes staff is "playing games" with her. She reports, "I don't know why they are doing that to me? It makes no sense, I don't need to lose anymore weight." Treatment Plan: continue all medications; Will likely discharge 09/11/20 Time spent 25 minutes Vital Signs Vital Signs Date Time Temp Pulse Resp B/P (MAP) Pulse Ox O2 Delivery O2 Flow Rate FiO2 09/09/20 06:27 97.8 82 18 145/88 (107) 100 Room Air Current Medications Current Medications Medications (Trade) Dose Ordered Sig/Rufina Route PRN Reason Start Time Stop Time Status Last Admin Dose Admin Acetaminophen (Tylenol Tab) 650 mg Q6HP PRN PO HEADACHE or DISCOMFORT 08/13/20 16:30 Al Hydrox/Mg Hydrox/Simethicone (Mylanta) 30 ml Q4HP PRN PO HEARTBURN/INDIGESTION 08/13/20 16:30 Diphenhydramine HCl (Benadryl) 50 mg STAT STAT IM 08/21/20 06:38 08/21/20 06:42 DC 08/21/20 06:43 Diphenhydramine HCl (Benadryl) 50 mg STAT STAT IM 08/30/20 04:18 08/30/20 04:22 DC 08/30/20 04:28 Diphenhydramine HCl (Benadryl) 50 mg STAT STAT IM 08/16/20 01:31 08/16/20 01:34 DC 08/16/20 01:43 Haloperidol (Haldol) 5 mg STAT STAT IM 08/30/20 04:18 08/30/20 04:22 DC 08/30/20 04:28 Haloperidol (Haldol) 10 mg STAT STAT IM 08/21/20 06:38 08/21/20 06:42 DC 08/21/20 06:44 Haloperidol (Haldol) 10 mg STAT STAT IM 08/16/20 01:31 08/16/20 01:34 DC 08/16/20 01:43 Hydroxyzine HCl (Atarax) 10 mg BIDP PRN PO ANXIETY 08/13/20 16:30 08/20/20 06:45 Lisinopril (Prinivil) 5 mg DAILY PO 08/14/20 09:00 Lorazepam (Ativan) 1 mg STAT STAT IM 08/13/20 07:10 08/13/20 07:11 DC 08/13/20 07:56 Lorazepam (Ativan) 1 mg STAT STAT PO 08/13/20 14:48 08/13/20 14:49 DC Lorazepam (Ativan) 2 mg STAT STAT IM 08/21/20 06:38 08/21/20 06:42 DC 08/21/20 06:43 Lorazepam (Ativan) 2 mg STAT STAT IM 08/30/20 04:18 08/30/20 04:22 DC 08/30/20 04:28 Lorazepam (Ativan) 2 mg STAT STAT IM 08/16/20 01:31 08/16/20 01:34 DC 08/16/20 01:44 Magnesium Hydroxide (Milk Of Magnesia) 30 ml DAILYPRN PRN PO CONSTIPATION 08/13/20 16:30 Non-Formulary Medication ( See Comment Field Below ) SEE COMMENTS SECT... 1T@10 ID 08/28/20 10:00 08/26/20 10:04 DC Olanzapine (ZyPREXA) 5 mg BID PO 08/14/20 09:00 09/01/20 12:01 DC 08/28/20 19:42 Paliperidone (Invega) 3 mg QHS PO 09/01/20 21:00 09/08/20 19:37 Risperidone (RisperDAL) 3 mg QHS PO 08/13/20 21:00 08/14/20 09:00 DC Trazodone HCl (Desyrel) 50 mg QHSP PRN PO INSOMNIA 08/13/20 16:30 Allergies Coded Allergies: SEAFOOD (Unverified Allergy, Severe, THROAT SWELLING, 08/19/04) Bleach (Sodium Hypochlorite) (Verified Allergy, Intermediate, RASH, 05/24/19) Iodine and Iodide Containing Produc (Verified Allergy, Unknown, 03/06/19) shellfish derived (Verified Allergy, Unknown, 05/24/19) MARCUS DEAL NP Sep 09, 2020 12:41
[2020-09-09] MEDS: PALIPERIDONE 3 MG ER TAB (INVEGA) PO SCH (20:12)
[2020-09-10] MEDS: lisinopriL 5 MG TAB PO SCH (08:49)
--- NOTE | 2020-09-10 09:39 | MHIPNPDOC ---
[facility] Progress Note Progress Note DATE OF SERVICE: 09/10/20 HISTORY: Patient is a 59 -year-old , female, who per ED reports, was at [facility] where she was agitated and psychotic, walked into the clinic without an appointment demanding to see her therapist. She was highly agitated, profane & accusatory/paranoid. Patient's animal care service worker was contacted, who reported patient has become so paranoid that she had her heat and electricity turned off and does not have adequate food. telecommunications manager advised patient be brought to [facility] on a pick remover order. When police arrived, patient was talking to her son, who had also reported patient had been decompensating. Patient then stated that her son was not her real son and instead was an imposter and reported her grand daughter has been kidnapped as well, which her son confirmed was untrue. Per patient, she stated that she was walking by her brother's house, who she hasn't spoken to in over a year, and looked into his house through the window and saw that stuff was missing so went the police station to file a report. She stated that She reported that her brother was supposed to call her to clean out the lower apartment but never called her. She stated that when she got to the police station, the police told her they would send over Maurice Yamhill, her nephew to handle the case and instead a few different police officers arrived, threw her up against the car and then brought her here and she is unsure why. VITAL SIGNS: See below. NEW TEST RESULTS: CURRENT MEDICATIONS: See below. MENTAL STATUS EXAMINATION: Patient is a 59-year old Single, Disabled, Domiciled, Female, who was brought to the ED for bizarre behaviors when she arrived at [facility] demanding to see a therapist. Patient is dressed in personal clothing. General Appearance: does not appear stated age (appears older than stated age), hospital scrubs/clothing, masculine facial features and voice Build: thin Demeanor: significantly less guarded and mistrustful Eye Contact: average Activity: average Behavior: cooperative, calm Speech: clear, normal volume, other (stuttering at times ) Mood: euthymic. "good" Affect: congruent, Thought Process: less paranoid and delusional Thought Content (Delusions): denies si/hi/ah/vh, no longer believes her son is an imposter and does not believe that people are poisoning her food anymore Thought Content (Other): les guarded, does not report any delusions to this policy writer typist, does appear mildly paranoid Thought Content (Aggressive): none reported Perception (Hallucinations): denies Perception (Other): none reported Cognition(Intelligence Est.): average Oriented: Awake, Alert, Oriented to person place, believes she has been here 7 months Insight: fair, improving Judgment: fair, improving Psychosis: Psychotic Perceptions - improved, does not report any delusions to this policy writer typist DIAGNOSES: Unspecified schizophrenia and other psychotic disorder Tobacco use disorder ASSESSMENT: Patient is agreeable to meet for the interview. she is pleasant, cooperative, smiling during 1:1, reports that she feels ready to discharge tomorrow - "I'm so excited I won't be able to sleep tonight." She states she has checked up on her apartment and has called [employer] to have her lights turned back on. She states that since she has been here she has spoken to her daughter and grand daughter and they are aware that she is discharging tomorrow. She states she lives in a duplex and that the apartment next door is vacant so she wants to see if her grand daughter wants to move in there. Her paranoia has decreased significantly, as she signed a release for her son and no longer feels that her son is an imposter. She reports she slept well last night and is eating meals. She no longer believes people are poisoning her food, states "just sometimes I might get the wrong tray." She is compliant with her medications, reports she will continue them after discharge. MANAGEMENT PLAN: Continue all medications Will discharge tomorrow TIME SPENT: 25 minutes. Vital Signs Vital Signs Date Time Temp Pulse Resp B/P (MAP) Pulse Ox O2 Delivery O2 Flow Rate FiO2 09/09/20 06:27 97.8 82 18 145/88 (107) 100 Room Air Current Medications Current Medications Medications (Trade) Dose Ordered Sig/Rufina Route PRN Reason Start Time Stop Time Status Last Admin Dose Admin Acetaminophen (Tylenol Tab) 650 mg Q6HP PRN PO HEADACHE or DISCOMFORT 08/13/20 16:30 Al Hydrox/Mg Hydrox/Simethicone (Mylanta) 30 ml Q4HP PRN PO HEARTBURN/INDIGESTION 08/13/20 16:30 Diphenhydramine HCl (Benadryl) 50 mg STAT STAT IM 08/21/20 06:38 08/21/20 06:42 DC 08/21/20 06:43 Diphenhydramine HCl (Benadryl) 50 mg STAT STAT IM 08/30/20 04:18 08/30/20 04:22 DC 08/30/20 04:28 Diphenhydramine HCl (Benadryl) 50 mg STAT STAT IM 08/16/20 01:31 08/16/20 01:34 DC 08/16/20 01:43 Haloperidol (Haldol) 5 mg STAT STAT IM 08/30/20 04:18 08/30/20 04:22 DC 08/30/20 04:28 Haloperidol (Haldol) 10 mg STAT STAT IM 08/21/20 06:38 08/21/20 06:42 DC 08/21/20 06:44 Haloperidol (Haldol) 10 mg STAT STAT IM 08/16/20 01:31 08/16/20 01:34 DC 08/16/20 01:43 Hydroxyzine HCl (Atarax) 10 mg BIDP PRN PO ANXIETY 08/13/20 16:30 08/20/20 06:45 Lisinopril (Prinivil) 5 mg DAILY PO 08/14/20 09:00 Lorazepam (Ativan) 1 mg STAT STAT IM 08/13/20 07:10 08/13/20 07:11 DC 08/13/20 07:56 Lorazepam (Ativan) 1 mg STAT STAT PO 08/13/20 14:48 08/13/20 14:49 DC Lorazepam (Ativan) 2 mg STAT STAT IM 08/21/20 06:38 08/21/20 06:42 DC 08/21/20 06:43 Lorazepam (Ativan) 2 mg STAT STAT IM 08/30/20 04:18 08/30/20 04:22 DC 08/30/20 04:28 Lorazepam (Ativan) 2 mg STAT STAT IM 08/16/20 01:31 08/16/20 01:34 DC 08/16/20 01:44 Magnesium Hydroxide (Milk Of Magnesia) 30 ml DAILYPRN PRN PO CONSTIPATION 08/13/20 16:30 Non-Formulary Medication ( See Comment Field Below ) SEE COMMENTS SECT... 1T@10 ID 08/28/20 10:00 08/26/20 10:04 DC Olanzapine (ZyPREXA) 5 mg BID PO 08/14/20 09:00 09/01/20 12:01 DC 08/28/20 19:42 Paliperidone (Invega) 3 mg QHS PO 09/01/20 21:00 09/09/20 20:12 Risperidone (RisperDAL) 3 mg QHS PO 08/13/20 21:00 08/14/20 09:00 DC Trazodone HCl (Desyrel) 50 mg QHSP PRN PO INSOMNIA 08/13/20 16:30 Allergies Coded Allergies: SEAFOOD (Unverified Allergy, Severe, THROAT SWELLING, 08/19/04) Bleach (Sodium Hypochlorite) (Verified Allergy, Intermediate, RASH, 05/24/19) Iodine and Iodide Containing Produc (Verified Allergy, Unknown, 03/06/19) shellfish derived (Verified Allergy, Unknown, 05/24/19) MARCUS DEAL NP Sep 10, 2020 09:28
--- NOTE | 2020-09-10 12:32 | MHIPNPDOC ---
[facility] Progress Note Progress Note [facility] Progress Note Patient Name: Leia Goldberg Unit Number: [id number] Date of : 1960 Patient Status: Admitted Inpatient Attending Doctor: Evelyn Yepez MD [facility] Progress Note Progress Note DATE OF SERVICE: 09/05/20 HISTORY: Patient is a 59 -year-old , female, who per ED reports, was at [facility] where she was agitated and psychotic, walked into the clinic without an appointment demanding to see her therapist. She was highly agitated, profane & accusatory/paranoid. Patient's health care administrator was contacted, who reported patient has become so paranoid that she had her heat and electricity turned off and does not have adequate food. channel account manager advised patient be brought to [facility] on a fiber picker order. When police arrived, patient was talking to her son, who had also reported patient had been decompensating. Patient then stated that her son was not her real son and instead was an imposter and reported her grand daughter has been kidnapped as well, which her son confirmed was untrue. Per patient, she stated that she was walking by her brother's house, who she hasn't spoken to in over a year, and looked into his house through the window and saw that stuff was missing so went the police station to file a report. She stated that She reported that her brother was supposed to call her to clean out the lower apartment but never called her. She stated that when she got to the police station, the police told her they would send over Christopher Waitsfield, her nephew to handle the case and instead a few different police officers arrived, threw her up against the car and then brought her here and she is unsure why. VITAL SIGNS: See below. NEW TEST RESULTS: CURRENT MEDICATIONS: See below. MENTAL STATUS EXAMINATION: Patient is a 59-year old Single, Disabled, Domiciled, Female, who was brought to the ED for bizarre behaviors when she arrived at [facility] demanding to see a therapist. Patient is dressed in personal clothing. General Appearance: does not appear stated age (appears older than stated age), hospital scrubs/clothing, masculine facial features and voice Build: thin Demeanor: hostile, guarded Eye Contact: Intense Activity: agitated, hostile Behavior: uncooperative, resistant, restless Speech: clear, normal volume, other (stuttering at times ) Mood: angry, irritable Affect: congruent, hostile Thought Process: loose, other (delusional - believes she was brought here on different circumstances than what ED reports, see H&P) Thought Content (Delusions): bizarre, denies SI, HI, AVH, paranoia, delusions (see HPI- believes she was brought here under different circumstances than what ED reports ) Thought Content (Other): guarded, appears paranoid, other (delusional) Thought Content (Aggressive): none reported, observed to be agitated, irritable Perception (Hallucinations): patient is paranoid and will not discuss mental illness Perception (Other): none reported Cognition (Impairment of): memory (p), ability to abstract Cognition(Intelligence Est.): average Oriented: Awake, Alert, Oriented tp person place, believes she has been here 2 months Insight: poor Judgment: Poor Psychosis: Psychotic Perceptions (delusional) DIAGNOSES: Unspecified schizophrenia and other psychotic disorder Tobacco use disorder ASSESSMENT: Leia remains significantly paranoid, but is less angry today. She is focused on her breakfast tray, states that she did not receive one and, "I want that it my file that I didn't get one, it's not that I don't want to eat." She reports that her friend filled out her menus "days ago, before she left" and that she has not been receiving her food. Per staff, Leia has not been filling out menus, despite reinforcement and encouragement, keeps stating that her friend already filled them out. Leia has approached the office multiple times this morning, wanting to talk about her breakfast tray. She believes that staff and other patient's are stealing people's food, refers to them as "scum bags." She reports that she tried to tell staff but "they just laugh and think its funny, then they try to slide new menus in like its nothing." She states, "I can't wait to go home so they don't touch my plate, thats just wrong." She did take her medications last night per OCT. She still remains with poor insight and judgment and her level of paranoia does not make her safe for discharge at this time. Management plan Pursue TOO continue all medications Time spent 25 minutes Vital Signs Vital Signs Date Time Temp Pulse Resp B/P (MAP) Pulse Ox O2 Delivery O2 Flow Rate FiO2 09/05/20 06:21 96.6 76 16 158/98 (118) 100 Room Air Current Medications Current Medications Medications (Trade) Dose Ordered Sig/Rufina Route PRN Reason Start Time Stop Time Status Last Admin Dose Admin Acetaminophen (Tylenol Tab) 650 mg Q6HP PRN PO HEADACHE or DISCOMFORT 08/13/20 16:30 Al Hydrox/Mg Hydrox/Simethicone (Mylanta) 30 ml Q4HP PRN PO HEARTBURN/INDIGESTION 08/13/20 16:30 Diphenhydramine HCl (Benadryl) 50 mg STAT STAT IM 08/21/20 06:38 08/21/20 06:42 DC 08/21/20 06:43 Diphenhydramine HCl (Benadryl) 50 mg STAT STAT IM 08/30/20 04:18 08/30/20 04:22 DC 08/30/20 04:28 Diphenhydramine HCl (Benadryl) 50 mg STAT STAT IM 08/16/20 01:31 08/16/20 01:34 DC 08/16/20 01:43 Haloperidol (Haldol) 5 mg STAT STAT IM 08/30/20 04:18 08/30/20 04:22 DC 08/30/20 04:28 Haloperidol (Haldol) 10 mg STAT STAT IM 08/21/20 06:38 08/21/20 06:42 DC 08/21/20 06:44 Haloperidol (Haldol) 10 mg STAT STAT IM 08/16/20 01:31 08/16/20 01:34 DC 08/16/20 01:43 Hydroxyzine HCl (Atarax) 10 mg BIDP PRN PO ANXIETY 08/13/20 16:30 08/20/20 06:45 Lisinopril (Prinivil) 5 mg DAILY PO 08/14/20 09:00 Lorazepam (Ativan) 1 mg STAT STAT IM 08/13/20 07:10 08/13/20 07:11 DC 08/13/20 07:56 Lorazepam (Ativan) 1 mg STAT STAT PO 08/13/20 14:48 08/13/20 14:49 DC Lorazepam (Ativan) 2 mg STAT STAT IM 08/21/20 06:38 08/21/20 06:42 DC 08/21/20 06:43 Lorazepam (Ativan) 2 mg STAT STAT IM 08/30/20 04:18 08/30/20 04:22 DC 08/30/20 04:28 Lorazepam (Ativan) 2 mg STAT STAT IM 08/16/20 01:31 08/16/20 01:34 DC 08/16/20 01:44 Magnesium Hydroxide (Milk Of Magnesia) 30 ml DAILYPRN PRN PO CONSTIPATION 08/13/20 16:30 Non-Formulary Medication ( See Comment Field Below ) SEE COMMENTS SECT... 1T@10 ID 08/28/20 10:00 08/26/20 10:04 DC Olanzapine (ZyPREXA) 5 mg BID PO 08/14/20 09:00 09/01/20 12:01 DC 08/28/20 19:42 Paliperidone (Invega) 3 mg QHS PO 09/01/20 21:00 09/04/20 20:13 Risperidone (RisperDAL) 3 mg QHS PO 08/13/20 21:00 08/14/20 09:00 DC Trazodone HCl (Desyrel) 50 mg QHSP PRN PO INSOMNIA 08/13/20 16:30 Allergies Coded Allergies: SEAFOOD (Unverified Allergy, Severe, THROAT SWELLING, 08/19/04) Bleach (Sodium Hypochlorite) (Verified Allergy, Intermediate, RASH, 05/24/19) Iodine and Iodide Containing Produc (Verified Allergy, Unknown, 03/06/19) shellfish derived (Verified Allergy, Unknown, 05/24/19) SATURNINO SALAS Sep 05, 2020 08:00 Vital Signs Vital Signs Date Time Temp Pulse Resp B/P (MAP) Pulse Ox O2 Delivery O2 Flow Rate FiO2 09/10/20 10:57 Room Air 09/09/20 06:27 97.8 82 18 145/88 (107) 100 Current Medications Current Medications Medications (Trade) Dose Ordered Sig/Rufina Route PRN Reason Start Time Stop Time Status Last Admin Dose Admin Acetaminophen (Tylenol Tab) 650 mg Q6HP PRN PO HEADACHE or DISCOMFORT 08/13/20 16:30 Al Hydrox/Mg Hydrox/Simethicone (Mylanta) 30 ml Q4HP PRN PO HEARTBURN/INDIGESTION 08/13/20 16:30 Diphenhydramine HCl (Benadryl) 50 mg STAT STAT IM 08/21/20 06:38 08/21/20 06:42 DC 08/21/20 06:43 Diphenhydramine HCl (Benadryl) 50 mg STAT STAT IM 08/30/20 04:18 08/30/20 04:22 DC 08/30/20 04:28 Diphenhydramine HCl (Benadryl) 50 mg STAT STAT IM 08/16/20 01:31 08/16/20 01:34 DC 08/16/20 01:43 Haloperidol (Haldol) 5 mg STAT STAT IM 08/30/20 04:18 08/30/20 04:22 DC 08/30/20 04:28 Haloperidol (Haldol) 10 mg STAT STAT IM 08/21/20 06:38 08/21/20 06:42 DC 08/21/20 06:44 Haloperidol (Haldol) 10 mg STAT STAT IM 08/16/20 01:31 08/16/20 01:34 DC 08/16/20 01:43 Hydroxyzine HCl (Atarax) 10 mg BIDP PRN PO ANXIETY 08/13/20 16:30 08/20/20 06:45 Lisinopril (Prinivil) 5 mg DAILY PO 08/14/20 09:00 Lorazepam (Ativan) 1 mg STAT STAT IM 08/13/20 07:10 08/13/20 07:11 DC 08/13/20 07:56 Lorazepam (Ativan) 1 mg STAT STAT PO 08/13/20 14:48 08/13/20 14:49 DC Lorazepam (Ativan) 2 mg STAT STAT IM 08/21/20 06:38 08/21/20 06:42 DC 08/21/20 06:43 Lorazepam (Ativan) 2 mg STAT STAT IM 08/30/20 04:18 08/30/20 04:22 DC 08/30/20 04:28 Lorazepam (Ativan) 2 mg STAT STAT IM 08/16/20 01:31 08/16/20 01:34 DC 08/16/20 01:44 Magnesium Hydroxide (Milk Of Magnesia) 30 ml DAILYPRN PRN PO CONSTIPATION 08/13/20 16:30 Non-Formulary Medication ( See Comment Field Below ) SEE COMMENTS SECT... 1T@10 ID 08/28/20 10:00 08/26/20 10:04 DC Olanzapine (ZyPREXA) 5 mg BID PO 08/14/20 09:00 09/01/20 12:01 DC 08/28/20 19:42 Paliperidone (Invega) 3 mg QHS PO 09/01/20 21:00 09/09/20 20:12 Risperidone (RisperDAL) 3 mg QHS PO 08/13/20 21:00 08/14/20 09:00 DC Trazodone HCl (Desyrel) 50 mg QHSP PRN PO INSOMNIA 08/13/20 16:30 Allergies Coded Allergies: SEAFOOD (Unverified Allergy, Severe, THROAT SWELLING, 08/19/04) Bleach (Sodium Hypochlorite) (Verified Allergy, Intermediate, RASH, 05/24/19) Iodine and Iodide Containing Produc (Verified Allergy, Unknown, 03/06/19) shellfish derived (Verified Allergy, Unknown, 05/24/19) MARCUS DEAL NP Sep 10, 2020 12:32
[2020-09-10] MEDS ORDERED: PALI1TAB2 PO (13:50)
[2020-09-10] MEDS: PALIPERIDONE 3 MG ER TAB (INVEGA) PO SCH (19:20)
[2020-09-11] MEDS: lisinopriL 5 MG TAB PO SCH (08:28)
--- NOTE | 2020-09-11 10:30 | MHDSPDOC ---
[facility] Discharge Summary Discharge Summary DATE OF ADMISSION: Aug 13, 2020 at 16:16 DATE OF DISCHARGE: Sep 11, 2020 at 1026 DIAGNOSES: 1. Unspecified schizophrenia and other psychotic disorder 2. Tobacco use disorder REASON FOR ADMISSION: HISTORY: Patient is a 59 -year-old , female, who per ED reports, was at [facility] where she was agitated and psychotic, walked into the clinic without an appointment demanding to see her therapist. She was highly agitated, profane & accusatory/paranoid. Patient's vocational childcare teacher was contacted, who reported patient has become so paranoid that she had her heat and electricity turned off and does not have adequate food. insurance territory manager advised patient be brought to [facility] on a knot picker cloth order. When police arrived, patient was talking to her son, who had also reported patient had been decompensating. Patient then stated that her son was not her real son and instead was an imposter and reported her grand daughter has been kidnapped as well, which her son confirmed was untrue. Per patient, she stated that she was walking by her brother's house, who she hasn't spoken to in over a year, and looked into his house through the window and saw that stuff was missing so went the police station to file a report. She stated that She reported that her brother was supposed to call her to clean out the lower apartment but never called her. She stated that when she got to the police station, the police told her they would send over Maurice Anna, her nephew to handle the case and instead a few different police officers arrived, threw her up against the car and then brought her here and she is unsure why. CONSULTANTS INVOLVED: see hospitalist H&P TREATMENT AND PROGRESS ON THE UNIT : patient was admitted on a 9.39 from the emergency room and was offered the following treatment modalities: 1) medication therapy and management 2) individual therapy 3) group therapy 4) mileu therapy 5) a safe environment HOSPITAL COURSE: Patient was brought into the emergency room by police after she was agitated and psychotic and [facility]. She was admitted on a 9.39 from the emergency room and was quite paranoid. For example, she believed she was kidnapped from the emergency room, that her son was killed a year ago in the ED, that the man claiming to be her son was an imposter, and at one point was refusing to eat - believed staff was poisoning her food. She was angry and agitated as well, requiring chemical and physical restraints a few times during her inpatient stay. She was initially started on olanzapine 5 mg po bid but showed minimal improvements so was switched to invega 3 mg po qhs, which was more effective. She became less angry, agitated and paranoid. Due to her improvement and progress, she will be discharged today. DISCHARGE ASSESSMENT: In today's session, Leia reports that she feels ready to go and plans on returning to her apartment today to spend time with her granddaughter. She states that her family is aware that she is coming home and is supportive. She denies ah/vh/si/hi and paranoia. She states she no longer fe els her son was kidnapped or that the man claiming to be her son is an imposter. She reports that she will take her medications after discharge as they help her with "everything." She is pleasant, polite, calm, cooperative, and future oriented. She does not express any delusional beliefs or psychotic thoughts during the interview, doesn't appear depressed or anxious. She has been compliant with medications and therefore, no longer meets involuntary criteria. She will be discharged per her request. MENTAL STATUS EXAMINATION: Patient is a 59-year old Single, Disabled, Domiciled, Female, who was brought to the ED for bizarre behaviors when she arrived at [facility] demanding to see a therapist. Patient is dressed in personal clothing. General Appearance: does not appear stated age (appears older than stated age), hospital scrubs/clothing, masculine facial features and voice Build: thin Demeanor: average Eye Contact: average Activity: average Behavior: cooperative, calm Speech: clear, normal volume Mood: euthymic. "good" Affect: congruent, Thought Process: significantly less paranoid, does not express any delusional thinking Thought Content (Delusions): denies si/hi/ah/vh, no longer believes her son is an imposter and does not believe that people are poisoning her food anymore Thought Content (Other): does not report any delusions to this handbook writer, does appear mildly paranoid, but is improving Thought Content (Aggressive): none reported Perception (Hallucinations): denies Perception (Other): none reported Cognition(Intelligence Est.): average Oriented: Awake, Alert, Oriented to person place, believes she has been here 7 months Insight: fair, improving Judgment: fair, improving Psychosis: Psychotic Perceptions - improved, does not report any delusions to this handbook writer MEDICATIONS ON DISCHARGE: -invega 3 mg po qhs PLAN/FOLLOWUP ARRANGEMENTS: [facility] The amount of time spent in the coordination of care for this patient was approximately 30 minutes. Time spent 25 minutes Vital Signs/I&Os Vital Signs Date Time Temp Pulse Resp B/P (MAP) Pulse Ox O2 Delivery O2 Flow Rate FiO2 09/10/20 10:57 Room Air 09/09/20 06:27 97.8 82 18 145/88 (107) 100 Medications Scheduled Paliperidone (Paliperidone ER) 3 Mg Tab.er.24, 3 MG PO QHS for PSYCHOSIS, #7 Allergies Coded Allergies: SEAFOOD (Unverified Allergy, Severe, THROAT SWELLING, 08/19/04) Bleach (Sodium Hypochlorite) (Verified Allergy, Intermediate, RASH, 05/24/19) Iodine and Iodide Containing Produc (Verified Allergy, Unknown, 03/06/19) shellfish derived (Verified Allergy, Unknown, 05/24/19) MARCUS DEAL NP Sep 11, 2020 10:04
== END 2020-09-11 10:51 | disposition home or self-care (01) | DRG 750 ==
LOC: M ED 11:25 → M ED INP 08-13 16:16 → M PSY 08-13 20:21
PROVIDERS: ADMIT Psychiatry & Neurology Psychiatry; ATTEND Psychiatry & Neurology Psychiatry
DX: F20.0 Paranoid schizophrenia (principal); Z78.1 Physical restraint status; Z91.14 Patient's other noncompliance with medication regimen; F17.210 Nicotine dependence, cigarettes, uncomplicated; Z91.013 Allergy to seafood; Z88.8 Allergy status to other drugs, medicaments and biological substances; Z91.048 Other nonmedicinal substance allergy status

== ENCOUNTER 2020-10-23 10:04 | Inpatient (IN) | payer MEDICAID, OTHER ==
[~2020-10-23] VITALS: Ht 144.8 cm; Wt 48.9 kg
[~2020-10-23 10:04] MED LIST changes: -LISI-542 PO; +LISI-898 PO; +PALI1TAB2 PO
[2020-10-23 10:51] LABS: HEMATOCRIT 44.1 % (36.0-47.0); MEAN CORPUSCULAR HEMOGLOBIN 29.9 pg (27.0-33.0); MEAN CORPUSCULAR HGB CONC 31.7 g/dl (32.0-36.5); PLATELET COUNT, AUTOMATED 447 10^3/uL (150-450); RED BLOOD COUNT 4.69 10^6/uL (4.00-5.40); WHITE BLOOD COUNT 8.7 10^3/uL (4.0-10.0)
[2020-10-23 11:19] LABS: ACETAMINOPHEN LEVEL < 2.0 UG/ML (10.0-30.0); ALBUMIN 4.1 GM/DL (3.2-5.2); ALT/SGPT 24 U/L (12-78); BILIRUBIN,DIRECT 0.1 MG/DL (0.0-0.2); BILIRUBIN,TOTAL 0.5 MG/DL (0.2-1.0); BLOOD UREA NITROGEN 8 MG/DL (7-18); CALCIUM LEVEL 9.6 MG/DL (8.8-10.2); CARBON DIOXIDE LEVEL 28 MEQ/L (21-32); CHLORIDE LEVEL 108 MEQ/L (98-107); CREATININE FOR GFR 0.84 MG/DL (0.55-1.30); ETHYL ALCOHOL (ETHANOL) < 0.003 % (0.000-0.010); GLOMERULAR FILTRATION RATE > 60.0 (>45); GLUCOSE, FASTING 152 MG/DL (70-100); POTASSIUM SERUM 4.3 MEQ/L (3.5-5.1); SALICYLATE LEVEL 5.6 MG/DL (5.0-30.0); SODIUM LEVEL 141 MEQ/L (136-145); THYROID STIMULATING HORMONE 0.838 uIU/ML (0.358-3.740); TOTAL PROTEIN 7.6 GM/DL (6.4-8.2)
[2020-10-23 11:21] LABS: AMPHETAMINES LEVEL URINE NEGATIVE (NEGATIVE); BARBITURATES URINE NEGATIVE (NEGATIVE); BENZODIAZEPINES URINE NEGATIVE (NEGATIVE); CANNABINOIDS URINE POSITIVE (NEGATIVE); COCAINE METABOLITE URINE NEGATIVE (NEGATIVE); METHADONE URINE NEGATIVE (NEGATIVE); OPIATES URINE NEGATIVE (NEGATIVE); PHENCYCLIDINE URINE NEGATIVE (NEGATIVE)
[2020-10-23 14:04] LABS: RSV AMPLIFICATION NEGATIVE (NEGATIVE)
[2020-10-23] MEDS ORDERED: MAALOX 30 ML SUSP *UDC PO PRN (14:15)
[2020-10-23] MEDS ORDERED: ACETAMINOPHEN TAB 650MG DOSE (2X325MG) PO PRN (14:15)
[2020-10-23] MEDS ORDERED: traZODone 50 MG TAB PO PRN (14:15)
[2020-10-23] MEDS ORDERED: MOM 30ML SUSPENSION UDC PO PRN (14:15)
[2020-10-23] MEDS ORDERED: HALOPERIDOL 5MG/ML VIAL (J1630 PER 1) IM STA (16:08)
[2020-10-23] MEDS ORDERED: LORazepam 2 MG/ML VIAL IM STA (16:08)
[2020-10-23] MEDS ORDERED: diphenhydrAMINE 50MG/ML VIAL (J1200) IM STA (16:08)
[2020-10-23 18:51] VITALS: BP 132/79
[2020-10-23] MEDS ORDERED: PALIPERIDONE 3 MG ER TAB (INVEGA) PO SCH (21:00)
[2020-10-23] MEDS: PALIPERIDONE 3 MG ER TAB (INVEGA) PO SCH (21:00)
--- NOTE | 2020-10-24 09:47 | MHHPEPDOC ---
General Date Of Admission: Oct 23, 2020 Legal Status: 9.39 Chief Complaint "I don't have to speak to you.". History of Present Illness HISTORY OF THE PRESENT ILLNESS: Patient is a 60 -year-old , female, who is admitted with significant paranoid ideation, delusions that we are not real doctors, she is uncooperative and hostile. * PT states that she went to the [facility] and asked to speak with her counselor Aline and was told no "It's my consitutional right to talk to Aline" PT feels she is being harrassed by a worker at [facility] "She won't leave me alone. I dont even see her anymore" PT was seen by multiple people in the [facility] parking lot agitated and screaming that she would kill everyone inside the building and then kill herself. [facility] called for assistance via the Crisis Response thru [facility] and a parts picker order was issued. Police found PT at her apartment and when she saw the officer she ran from her third floor apartment causing the officer to reginald her and then catch her at the bottom of the stairs. PT states the police are fake because they cannot run. When reminded that the officer did in fact run and then catch her she became agitated "Im in the [employer]. This is against my constitutional rights. I dont have to answer anymore questions" PT then demanded thta this junior underwriter leave her room multiple times. Informed PT she would be admitted to [facility] to which she simply responded "Call Aline". Could not get any further history as patient is nonfasting will not talk to staff and is suspicious of them Psychiatric Review of Systems Depression (2 or more weeks): difficulty concentrating Maren (4 or more days of): irritable/elevated mood Psychosis: delusions, paranoia PTSD: denies Anxiety: denies Anxiety/ 6 months or more of: irritability Past Psychiatric History Previous Psychiatric Diagnosis: Schizophrenia. Previous Psychiatric Admissions: Previous admission to this unit resulted in a lengthy stay as patient would not take medication until later in the stay. Suicide Attempts:, Unknown. Psychiatric Follow-up: Is followed up at outpatient clinic. Psychiatric medications: Invega, most recently. Past Medical History Medical Problems Not applicable Head Injury: No Seizures: No Hospitalizations: Yes Surgeries: No Family Medical/Psychiatric HX Psychiatric Disorders: No Addiction: No Suicide Attemps/Completions: No Addiction History denies Social History Childhood: No information at this time. Abuse/Trauma:. No information at this time. Current Living Situation:. Apartment living. Education: Possible college education. Employment:. Not presently employed. Social Support:. No known social support. Legal:. No known legal difficulties. Marital:, Single. Mental Status Examination General Appearance: hospital scubs/clothing Build: thin Demeanor: hostile, mistrustful, withdrawn, guarded Eye Contact: poor Activity: average Behavior: uncooperative, resistant, agitated, aggressive Speech: clear Mood: irritable Affect: constricted Thought Process: logical/linear Thought Content (Delusions): persecutory, bizarre, paranoia, delusions Thought Content (Other): preoccupied, guarded, internal-stimuli, appears paranoid Thought Content (Aggressive): aggressive (assess) Perception (Hallucinations): none reported Perception (Other): none reported Cognition (Impairment of): none reported Cognition(Intelligence Est.): above average Oriented: Awake, Alert Insight: poor Judgment: Poor Psychosis: Psychotic Perceptions Diagnoses Schizophrenia, chronic A-FIB/CHADSVASC A-FIB History Current/History of A-Fib/PAF?: No Current PO Anticoag Therapy: No Age/Risk Factor Scoring CHADSVASC: CHADSVASC Response (Comments) Value Age Risk Factor Age < 65 years old 0 Gender Risk Factor Female 1 Hx of CHF No 0 Hx of HTN No 0 Hx of Stroke/TIA/or VTE No 0 Hx of Diabetes No 0 Hx of Vascular Disease No 0 Total 1 Treatment Treatment ordered: NONE Initial Treatment Plan 1. Patient was admitted on a [9.39] status. 2. Complete history was obtained. 3. With patients permission, family will be contacted and database will be expanded. 4. Patients medication regimen will be reviewed and changed accordingly. 5. Patient will be provided with protected environment. 6. Patient will be treated with individual, group, and milieu therapies. 7. Patient will receive supportive psych-education. 8. Discharge planning will commence immediately. 9. Outpatient follow-up treatment will be strongly recommended. 10. The initial treatment plan will focus initially on: * Depression. * Risk for suicide. ESTIMATED LENGTH OF STAY: - DAYS. TIME SPENT COUNSELING AND COORDINATING INITIAL CARE: minutes. Ordered/Pending Vital Signs Vital Signs Date Time Temp Pulse Resp B/P (MAP) Pulse Ox O2 Delivery O2 Flow Rate FiO2 10/23/20 18:51 98.2 90 16 132/79 (96) 10/23/20 15:31 99 Room Air Laboratory Data 24H Labs Laboratory Tests 2 10/23/20 10:34: Nucleated Red Blood Cells % (auto) 0.0, Anion Gap 5L, Glomerular Filtration Rate > 60.0, Calcium Level 9.6, Total Bilirubin 0.5, Direct Bilirubin 0.1, Aspartate Amino Transf (AST/SGOT) 11, Alanine Aminotransferase (ALT/SGPT) 24, Alkaline Phosphatase 76, Total Protein 7.6, Albumin 4.1, Albumin/Globulin Ratio 1.2, Thyroid Stimulating Hormone (TSH) 0.838, Salicylates Level 5.6, Urine Opiates Screen NEGATIVE, Urine Methadone Screen NEGATIVE, Acetaminophen Level < 2.0L, Urine Barbiturates Screen NEGATIVE, Urine Phencyclidine Screen NEGATIVE, Urine Amphetamines Screen NEGATIVE, Urine Benzodiazepines Screen NEGATIVE, Urine Cocaine Metabolite Screen NEGATIVE, Urine Cannabinoids Screen POSITIVEH, Ethyl Alcohol Level < 0.003 10/23/20 12:17: Coronavirus (COVID-19)(PCR) NEGATIVE, Influenza Type A (RT-PCR) NEGATIVE, Influenza Type B (RT-PCR) NEGATIVE, Respiratory Syncytial Virus (PCR) NEGATIVE CBC/BMP Laboratory Tests 10/23/20 10:34 Medications Scheduled Paliperidone (Paliperidone ER) 3 Mg Tab.er.24, 3 MG PO QHS for PSYCHOSIS Allergies Coded Allergies: SEAFOOD (Unverified Allergy, Severe, THROAT SWELLING, 08/19/04) Bleach (Sodium Hypochlorite) (Verified Allergy, Intermediate, RASH, 05/24/19) Iodine and Iodide Containing Produc (Verified Allergy, Unknown, 03/06/19) shellfish derived (Verified Allergy, Unknown, 05/24/19) RASHAWN KONG MD Oct 24, 2020 09:47
--- NOTE | 2020-10-24 15:46 | IPNPDOC ---
Text Note Date of Service The patient was seen on 10/24/20. NOTE Patient refused physical exam and interview. Please, let the hospitalist service to known when patient is mentally stable for interview and physical exam. VS,Fishbone, I+O VS, Fishbone, I+O Vital Signs Date Time Temp Pulse Resp B/P (MAP) Pulse Ox O2 Delivery O2 Flow Rate FiO2 10/23/20 18:51 98.2 90 16 132/79 (96) 10/23/20 15:31 99 Room Air JESÚS KAUFFMAN DO Oct 24, 2020 15:46
[2020-10-24] MEDS: PALIPERIDONE 3 MG ER TAB (INVEGA) PO SCH (20:06)
--- NOTE | 2020-10-25 17:39 | MHIPNPDOC ---
[facility] Progress Note Progress Note DATE OF SERVICE: 10/25/20 Chief Complaint * PT states that she went to the [facility] and asked to speak with her counselor Aline and was told no "It's my consitutional right to talk to Aline" PT feels she is being harrassed by a worker at [facility] "She won't leave me alone. I dont even see her anymore" PT was seen by multiple people in the [facility] parking lot agitated and screaming that she would kill everyone inside the building and then kill herself. [facility] called for assistance via the Crisis Response thru [facility] and a car pick up driver order was issued. Police found PT at her apartment and when she saw the officer she ran from her third floor apartment causing the officer to reginald her and then catch her at the bottom of the stairs. PT states the police are fake because they cannot run. When reminded that the officer did in fact run and then catch her she became agitated "Im in [employer]. This is against my constitutional rights. I dont have to answer anymore questions" PT then demanded thta this law writer leave her room multiple times. Informed PT she would be admitted to [facility] to which she simply responded "Call Aline".Patient refuses to talk with staff or take medications HISTORY: Repetitive psychiatric admissions VITAL SIGNS: See below. NEW TEST RESULTS: None. CURRENT MEDICATIONS: See below. MENTAL STATUS EXAMINATION: Patient is a 60-year old female, who is curses and insults staff thinks we are fake that we are from [place]. Speech: Is, short, roxie. Language skills are, probably intact. Thought processes including:, As above. Thought content:, Paranoid of staff and of other. Abstract reasoning, and computation: Cannot be determined. Description of associations:. No loose association. Description of abnormal or psychotic thoughts: Obvious psychotic thought, paranoia. Judgment:, Poor. Insight:, Limited. Orientation: 3. Recent and remote memory: Hard to determine. Attention span and concentration: Hard to determine. Language: As above. Fund of knowledge: Unknown.. Mood: Irritable. Affect:, Angry. DIAGNOSES: 1.. Paranoid schizophrenia. 2.none. . 3. None. ASSESSMENT: based on her last admission. It may take weeks for patient to finally take medication MANAGEMENT PLAN:. Continue to observe. Continue to encourage. TIME SPENT: 20 minutes. Vital Signs Vital Signs Date Time Temp Pulse Resp B/P (MAP) Pulse Ox O2 Delivery O2 Flow Rate FiO2 10/23/20 18:51 98.2 90 16 132/79 (96) 10/23/20 15:31 99 Room Air Current Medications Current Medications Medications (Trade) Dose Ordered Sig/Rufina Route PRN Reason Start Time Stop Time Status Last Admin Dose Admin Acetaminophen (Tylenol Tab) 650 mg Q6HP PRN PO HEADACHE or DISCOMFORT 10/23/20 14:15 Al Hydrox/Mg Hydrox/Simethicone (Mylanta) 30 ml Q4HP PRN PO HEARTBURN/INDIGESTION 10/23/20 14:15 Diphenhydramine HCl (Benadryl) 50 mg STAT STAT IM 10/23/20 16:08 10/23/20 16:10 DC 10/23/20 16:22 Haloperidol (Haldol) 10 mg STAT STAT IM 10/23/20 16:08 10/23/20 16:10 DC 10/23/20 16:22 Home Med (Med Rec Complete!) ASDIRECTED XX 10/23/20 13:30 10/23/20 13:39 DC Lorazepam (Ativan) 2 mg STAT STAT IM 10/23/20 16:08 10/23/20 16:10 DC 10/23/20 16:22 Magnesium Hydroxide (Milk Of Magnesia) 30 ml DAILYPRN PRN PO CONSTIPATION 10/23/20 14:15 Paliperidone (Invega) 3 mg QHS PO 10/23/20 21:00 Paliperidone (Invega) 3 mg QHS PO 10/23/20 21:00 UNV Trazodone HCl (Desyrel) 50 mg QHSP PRN PO INSOMNIA 10/23/20 14:15 Allergies Coded Allergies: SEAFOOD (Unverified Allergy, Severe, THROAT SWELLING, 08/19/04) Bleach (Sodium Hypochlorite) (Verified Allergy, Intermediate, RASH, 05/24/19) Iodine and Iodide Containing Produc (Verified Allergy, Unknown, 03/06/19) shellfish derived (Verified Allergy, Unknown, 05/24/19) RASHAWN KONG MD Oct 25, 2020 17:39
[2020-10-25] MEDS: PALIPERIDONE 3 MG ER TAB (INVEGA) PO SCH (20:13)
--- NOTE | 2020-10-26 12:42 | MHIPNPDOC ---
[facility] Progress Note Progress Note DATE OF SERVICE: 10/26/20 HISTORY: * PT states that she went to the [facility] and asked to speak with her counselor Aline and was told no "It's my consitutional right to talk to Aline" PT feels she is being harrassed by a worker at [facility] "She won't leave me alone. I dont even see her anymore" PT was seen by multiple people in the [facility] parking lot agitated and screaming that she would kill everyone inside the building and then kill herself. [facility] called for assistance via the Crisis Response thru [facility] and a picking machine operator helper order was issued. Police found PT at her apartment and when she saw the officer she ran from her third floor apartment causing the officer to reginald her and then catch her at the bottom of the stairs. PT states the police are fake because they cannot run. When reminded that the officer did in fact run and then catch her she became agitated "Im in the [employer]. This is against my constitutional rights. I dont have to answer anymore questions" Patient today was very pleasant and played harmonica for me. Her harmonica playing. However, consisted of just blowing in and out of the notes, although someone told that she actually could place song.. She is not taking any medication and states she has not been in any trouble to anybody. She would like to be discharged. The problem would be that if she is discharged without medication. She may end up causing problems that got her admitted again i.e., screaming at people on the street. She is still delusional about the [employer]. 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 We need to make should be communicated with her outpatient treatment team. I understand that even when she has taken medication on past admissions that it's been erratic VITAL SIGNS: See below. NEW TEST RESULTS: None. CURRENT MEDICATIONS: See below. MENTAL STATUS EXAMINATION: Patient is a 60-year old female, who has history of chronic schizophrenia. Speech: Is. No gross disturbance. Language skills are. No gross disturbance. Thought processes including: Initially uncooperative and insulting but not so today. Thought content: Would like to discharge. Abstract reasoning, and computation: Capable of abstract reasoning. Description of associations:. No loose associations. Description of abnormal or psychotic thoughts:. Psychotic thoughts as described still thinks she is in the [employer]. Judgment: Poor. Insight:, Limited. Orientation: 3. Recent and remote memory: Not measured. Attention span and concentration: Apparently intact. Language: No gross disturbance. Fund of knowledge: Reasonable. Mood:fair. Affect: Pleasant. DIAGNOSES: 1. Chronic schizophrenia. . ASSESSMENT: As above MANAGEMENT PLAN: Will be determined by discussion of her past history. If in fact she is noncompliant with medication. The discussion of whether an IM injection or use of oral medication is even relevant. TIME SPENT:, 25 minutes. Vital Signs Vital Signs Date Time Temp Pulse Resp B/P (MAP) Pulse Ox O2 Delivery O2 Flow Rate FiO2 10/23/20 18:51 98.2 90 16 132/79 (96) 10/23/20 15:31 99 Room Air Current Medications Current Medications Medications (Trade) Dose Ordered Sig/Rufina Route PRN Reason Start Time Stop Time Status Last Admin Dose Admin Acetaminophen (Tylenol Tab) 650 mg Q6HP PRN PO HEADACHE or DISCOMFORT 10/23/20 14:15 Al Hydrox/Mg Hydrox/Simethicone (Mylanta) 30 ml Q4HP PRN PO HEARTBURN/INDIGESTION 10/23/20 14:15 Diphenhydramine HCl (Benadryl) 50 mg STAT STAT IM 10/23/20 16:08 10/23/20 16:10 DC 10/23/20 16:22 Haloperidol (Haldol) 10 mg STAT STAT IM 10/23/20 16:08 10/23/20 16:10 DC 10/23/20 16:22 Home Med (Med Rec Complete!) ASDIRECTED XX 10/23/20 13:30 10/23/20 13:39 DC Lorazepam (Ativan) 2 mg STAT STAT IM 10/23/20 16:08 10/23/20 16:10 DC 10/23/20 16:22 Magnesium Hydroxide (Milk Of Magnesia) 30 ml DAILYPRN PRN PO CONSTIPATION 10/23/20 14:15 Paliperidone (Invega) 3 mg QHS PO 10/23/20 21:00 Paliperidone (Invega) 3 mg QHS PO 10/23/20 21:00 UNV Trazodone HCl (Desyrel) 50 mg QHSP PRN PO INSOMNIA 10/23/20 14:15 Allergies Coded Allergies: SEAFOOD (Unverified Allergy, Severe, THROAT SWELLING, 08/19/04) Bleach (Sodium Hypochlorite) (Verified Allergy, Intermediate, RASH, 05/24/19) Iodine and Iodide Containing Produc (Verified Allergy, Unknown, 03/06/19) shellfish derived (Verified Allergy, Unknown, 05/24/19) RASHAWN KONG MD Oct 26, 2020 12:42
[2020-10-26] MEDS: PALIPERIDONE 3 MG ER TAB (INVEGA) PO SCH (20:13)
[2020-10-27 06:34] VITALS: BP 140/85
--- NOTE | 2020-10-27 11:18 | MHDSPDOC ---
[facility] Discharge Summary Discharge Summary DATE OF ADMISSION: Oct 23, 2020 at 14:11 DATE OF DISCHARGE: October 27, 2020 DISCHARGE DIAGNOSES: 1. Paranoid schizophrenia. . REASON FOR ADMISSION: * PT states that she went to the [facility] and asked to speak with her counselor Aline and was told no "It's my consitutional right to talk to Aline" PT feels she is being harrassed by a worker at [facility] "She won't leave me alone. I dont even see her anymore" PT was seen by multiple people in the [facility] parking lot agitated and screaming that she would kill everyone inside the building and then kill herself. [facility] called for assistance via the Crisis Response thru [facility] and a orange picker order was issued. Police found PT at her apartment and when she saw the officer she ran from her third floor apartment causing the officer to reginald her and then catch her at the bottom of the stairs. PT states the police are fake because they cannot run. When reminded that the officer did in fact run and then catch her she became agitated "Im in [employer]. This is against my constitutional rights. I dont have to answer anymore questions" PT then demanded thta this mortgage loan underwriter leave her room multiple times. Informed PT she would be admitted to [facility] to which she simply responded "Call Aline". Patient on Tuesday was very pleasant and played harmonica for me. Her harmonica playing. However, consisted of just blowing in and out of the notes, although someone told that she actually could place song.. She is not taking any medication and states she has not been in any trouble to anybody. She would like to be discharged. The problem would be that if she is discharged without medication. She may end up causing problems that got her admitted again i.e., screaming at people on the street. She is still delusional about the [employer]. 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 We need to make should be communicated with her outpatient treatment team. I understand that even when she has taken medication on past admissions that it's been erratic CONSULTANTS INVOLVED: none TREATMENT AND PROGRESS ON THE UNIT : Patient initially hostile and accusatory to staff. She refused any medication.By Tuesday patient became more pleasant and played harmonica for me. Patient has never been compliant with medication and has not been compliant with OP appts. Outpt clinic refuses to make followup appt due to her non compliance. HOSPITAL COURSE: As above. On her last admission. It took some 30 days for patient to clear and become less paranoid, but she continued to be erratically compliant with medication, as she is no danger to herself or others is not interested in taking medication and due to the fact that her outpatient clinic. No longer wants to make appointments for her, and that staff reports to me that this is the best she gets decided to discharge her DISCHARGE ASSESSMENT:. Paranoid schizophrenia MENTAL STATUS EXAMINATION ON DISCHARGE: Patient is a 60-year old female, who is pleasant and cooperative. Speech is. No gross disturbance. Language skills are no gross disturbance. Thought processes including: Easily, feels persecuted, but generally friendly to many of the staff. Thought content: As above. Abstract reasoning, and computation: Able to abstract able to compute. Description of associations: No loose association. Description of abnormal or psychotic thoughts:. was suspicious that we were not real doctors that we were from [place]. Judgment: Poor, but improved. Insight:. Mild. Orientation to 3. Recent and remote memory: Intact. Attention span and concentration: Intact. Language:. No disturbance. Fund of knowledge: Reasonable. Mood: Euthymic, pleasant. Affect:, Congruent. MEDICATIONS ON DISCHARGE: -. Patient refuses all medications PLAN/FOLLOWUP ARRANGEMENTS: Patient given information of contacting walk-in clinic. The amount of time spent in the coordination of care for this patient was approximately, 45 minutes. ETOH/Disorder Med Rx ETOH/DRUG DISORDER RX: N/A Vital Signs/I&Os Vital Signs Date Time Temp Pulse Resp B/P (MAP) Pulse Ox O2 Delivery O2 Flow Rate FiO2 10/27/20 06:34 97.6 73 20 140/85 (103) 98 10/23/20 15:31 Room Air Medications Scheduled Paliperidone (Paliperidone ER) 3 Mg Tab.er.24, 3 MG PO QHS for PSYCHOSIS, #7 Allergies Coded Allergies: SEAFOOD (Unverified Allergy, Severe, THROAT SWELLING, 08/19/04) Bleach (Sodium Hypochlorite) (Verified Allergy, Intermediate, RASH, 05/24/19) Iodine and Iodide Containing Produc (Verified Allergy, Unknown, 03/06/19) shellfish derived (Verified Allergy, Unknown, 05/24/19) RASHAWN KONG MD Oct 27, 2020 11:18
== END 2020-10-27 10:46 | disposition home or self-care (01) | DRG 750 ==
LOC: M ED 10:04 → M ED INP 14:11 → M PSY 15:39
PROVIDERS: ADMIT Psychiatry & Neurology Child & Adolescent Psychiatry; ATTEND Psychiatry & Neurology Child & Adolescent Psychiatry
DX: F20.0 Paranoid schizophrenia (principal); Z20.822 Contact with and (suspected) exposure to COVID-19; Z79.899 Other long term (current) drug therapy; Z91.013 Allergy to seafood; Z91.048 Other nonmedicinal substance allergy status

== ENCOUNTER 2020-12-09 21:31 | Emergency (ER) | payer OTHER ==
[2020-12-09 21:47] LABS: VENOUS BASE EXCESS -2.8 (-2.0-2.0); VENOUS HCO3 22.4 MEQ/L (23.0-27.0); VENOUS O2 SATURATION 65.7 % (60.0-80.0); VENOUS PARTIAL PRESSURE CO2 40.5 mmHg (38.0-50.0); VENOUS PARTIAL PRESSURE O2 30.9 mmHg (30.0-50.0); VENOUS PH 7.361 UNITS (7.330-7.430); VENOUS STANDARD HCO3 21.5 MEQ/L; VENOUS TOTAL CO2 23.7 MEQ/L (24.0-28.0)
[2020-12-09 21:51] LABS: BASO # 0.1 10^3/uL (0.0-0.2); BASO % 0.3 % (0.0-1.0); EOS # 0.1 10^3/uL (0.0-0.5); EOS % 0.5 % (0.0-3.0); HEMATOCRIT 40.5 % (36.0-47.0); HEMOGLOBIN 12.8 g/dl (12.0-15.5); LYMPH # 3.4 10^3/uL (1.5-5.0); MEAN CORPUSCULAR HEMOGLOBIN 30.2 pg (27.0-33.0); MEAN CORPUSCULAR HGB CONC 31.6 g/dl (32.0-36.5); MEAN CORPUSCULAR VOLUME 95.5 fl (80.0-96.0); MONO # 1.5 10^3/uL (0.0-0.8); NEUTROPHILS # 20.3 10^3/uL (1.5-8.5); NEUTROPHILS % 78.7 % (36.0-66.0); PLATELET COUNT, AUTOMATED 444 10^3/uL (150-450); RED BLOOD COUNT 4.24 10^6/uL (4.00-5.40)
[2020-12-09 22:03] LABS: INR 1.08; PROTHROMBIN TIME 14.2 SECONDS (12.5-14.3)
[2020-12-09 22:04] LABS: PARTIAL THROMBOPLASTIN TIME 29.6 SECONDS (24.2-38.5)
[2020-12-09 22:13] LABS: WHITE BLOOD COUNT 25.8 10^3/uL (4.0-10.0)
[2020-12-09 22:15] LABS: ALBUMIN 3.3 GM/DL (3.2-5.2); ALT/SGPT 133 U/L (12-78); AMYLASE 52 U/L (25-115); BILIRUBIN,DIRECT 0.1 MG/DL (0.0-0.2); BILIRUBIN,TOTAL 0.2 MG/DL (0.2-1.0); BLOOD UREA NITROGEN 27 MG/DL (7-18); CALCIUM LEVEL 9.2 MG/DL (8.8-10.2); CARBON DIOXIDE LEVEL 27 MEQ/L (21-32); CHLORIDE LEVEL 109 MEQ/L (98-107); CK-MB VALUE MASS 11.9 NG/ML (<3.6); CPK CREATINE PHOSPHOKINASE 370 U/L (26-192); CREATININE FOR GFR 0.66 MG/DL (0.55-1.30); ETHYL ALCOHOL (ETHANOL) < 0.003 % (0.000-0.010); GLOMERULAR FILTRATION RATE > 60.0 (>45); GLUCOSE, FASTING 151 MG/DL (70-100); LIPASE 241 U/L (73-393); MB/CK RELATIVE INDEX 3.22 (< OR =4); POTASSIUM SERUM 3.6 MEQ/L (3.5-5.1); SODIUM LEVEL 141 MEQ/L (136-145); TOTAL PROTEIN 6.8 GM/DL (6.4-8.2); TROPONIN I < 0.02 NG/ML (< 0.10)
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
[2020-12-09] MEDS ORDERED: BOOSTRIX/ADACEL VACCINE (DIPHTH/PERTUSS/ACELL/TETANUS) 0.5ML SYR IM ONE (22:50)
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
[2020-12-09] MEDS ORDERED: LORazepam 2 MG/ML VIAL IV STA (22:54)
[2020-12-09] MEDS ORDERED: HALOPERIDOL 5MG/ML VIAL (J1630 PER 1) IV ONE (22:55)
[2020-12-09] MEDS ORDERED: LORazepam 2 MG/ML VIAL As Ordered ONE (23:02)
[2020-12-09 23:08] VITALS: BP 139/64
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
[2020-12-09 23:42] LABS: RSV AMPLIFICATION NEGATIVE (NEGATIVE)
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
== END 2020-12-09 23:36 | disposition short-term general hospital (02) ==
LOC: M ED 21:31
DX: S32.9XXA Fracture of unspecified parts of lumbosacral spine and pelvis, initial encounter for closed fracture (principal); V09.29XA Pedestrian injured in traffic accident involving other motor vehicles, initial encounter; Y92.410 Unspecified street and highway as the place of occurrence of the external cause; I10 Essential (primary) hypertension; Z88.8 Allergy status to other drugs, medicaments and biological substances; Z91.018 Allergy to other foods; Z91.048 Other nonmedicinal substance allergy status; F17.210 Nicotine dependence, cigarettes, uncomplicated
CPT/HCPCS: 70450; 71250; 72125; 73080; 73502; 74176; 80048; 80076; 82077; 82150; 82550; 82553; 82803; 83605; 83690; 84484; 85025; 85610; 85730; 86850; 86900; 86901; 87631; 93041; 96374; 96375; 99285; J1630; J2060

== ENCOUNTER → 2021-04-24 | Outpatient (CLI) | payer OTHER ==
[~2021-04-24] MED LIST changes: +AMOX875T2 PO; -CEFD1CAP8 PO; +CEFD300C41 PO; +FERR1TAB8 PO; +HALD50IN4; +HALD50IN4 IM; +HALO5TAB33 PO; +HYDR-3715 PO; -LISI-898 PO; +LISI5TAB11 PO; +NICO14PA TD; +PURE500C5 PO; +QC A650T3 PO; +VOTR200T2 PO
== END ==
LOC: M PLAIMG 13:02
PROVIDERS: ATTEND Internal Medicine Pulmonary Disease
DX: R91.8 Other nonspecific abnormal finding of lung field (principal)

== ENCOUNTER → 2021-05-26 | Outpatient (CLI) | payer OTHER ==
[~2021-05-26] MED LIST changes: -AMOX875T2 PO; +CEFD1CAP8 PO; -CEFD300C41 PO; -FERR1TAB8 PO; -HALD50IN4; -HALD50IN4 IM; -HALO5TAB33 PO; -HYDR-3715 PO; +LISI-898 PO; -LISI5TAB11 PO; -NICO14PA TD; -PURE500C5 PO; -QC A650T3 PO; -VOTR200T2 PO
[2021-05-26 16:10] LABS: PLATELET COUNT, AUTOMATED 909 10^3/uL (150-450)
[2021-05-26 16:33] LABS: INR 1.33
[2021-05-26 16:35] LABS: PARTIAL THROMBOPLASTIN TIME 46.4 SECONDS (25.9-37.0)
== END ==
LOC: M WUC 13:58
PROVIDERS: ATTEND Internal Medicine Pulmonary Disease
DX: R91.8 Other nonspecific abnormal finding of lung field (principal)

== ENCOUNTER → 2021-06-12 | Outpatient (CLI) | payer OTHER ==
[2021-06-12 14:42] LABS: BASO # 0.1 10^3/uL (0.0-0.2); BASO % 0.5 % (0.0-1.0); EOS # 0.3 10^3/uL (0.0-0.5); EOS % 2.1 % (0.0-3.0); HEMATOCRIT 31.5 % (36.0-47.0); HEMOGLOBIN 9.3 g/dl (12.0-15.5); LYMPH % 13.1 % (24.0-44.0); MEAN CORPUSCULAR HEMOGLOBIN 24.9 pg (27.0-33.0); MEAN CORPUSCULAR HGB CONC 29.5 g/dl (32.0-36.5); MEAN CORPUSCULAR VOLUME 84.5 fl (80.0-96.0); MONO # 1.4 10^3/uL (0.0-0.8); NEUTROPHILS # 11.6 10^3/uL (1.5-8.5); NEUTROPHILS % 74.7 % (36.0-66.0); PLATELET COUNT, AUTOMATED 837 10^3/uL (150-450); RED BLOOD COUNT 3.73 10^6/uL (4.00-5.40); WHITE BLOOD COUNT 15.5 10^3/uL (4.0-10.0)
[2021-06-12 15:11] LABS: ALBUMIN 2.1 GM/DL (3.2-5.2); ALT/SGPT 15 U/L (12-78); BILIRUBIN,TOTAL 0.2 MG/DL (0.2-1.0); BLOOD UREA NITROGEN 10 MG/DL (7-18); CALCIUM LEVEL 9.4 MG/DL (8.8-10.2); CARBON DIOXIDE LEVEL 29 MEQ/L (21-32); CHLORIDE LEVEL 102 MEQ/L (98-107); CREATININE FOR GFR 0.61 MG/DL (0.55-1.30); GLOMERULAR FILTRATION RATE > 60.0 (>45); GLUCOSE, FASTING 153 MG/DL (70-100); POTASSIUM SERUM 4.3 MEQ/L (3.5-5.1); SODIUM LEVEL 138 MEQ/L (136-145); TOTAL PROTEIN 7.3 GM/DL (6.4-8.2)
== END ==
LOC: M PLALAB 12:48
PROVIDERS: ATTEND Student in an Organized Health Care Education/Training Program
DX: Z01.818 Encounter for other preprocedural examination (principal)

== ENCOUNTER → 2021-08-14 | Outpatient (CLI) | payer OTHER ==
[~2021-08-14] MED LIST changes: -CEFD1CAP8 PO; +CEFD300C41 PO; +HALD50IN4 IM; -LISI-898 PO; +LISI5TAB11 PO
[2021-08-14 15:42] LABS: PLATELET COUNT, AUTOMATED 960 10^3/uL (150-450)
[2021-08-14 15:48] LABS: INR 1.34
[2021-08-14 15:49] LABS: PARTIAL THROMBOPLASTIN TIME 43.9 SECONDS (25.9-37.0)
== END ==
LOC: M PLALAB 13:48
PROVIDERS: ATTEND Internal Medicine Pulmonary Disease
DX: R91.8 Other nonspecific abnormal finding of lung field (principal)

== ENCOUNTER 2021-08-21 16:25 | Inpatient (IN) | payer OTHER ==
[~2021-08-21] VITALS: Ht 157.5 cm; Wt 50.5 kg
[~2021-08-21 16:25] MED LIST changes: -AMOX875T2 PO; -FERR1TAB8 PO; -NICO14PA TD; -PURE500C5 PO
[2021-08-21 17:02] VITALS: BP 136/69
[2021-08-21] MEDS: NICOTINE 14 MG/24 HR TRANSDERMAL TD SCH (17:32)
[2021-08-21] MEDS ORDERED: CEFD300C41 PO (17:43)
[2021-08-21] MEDS ORDERED: HOME MED LIST COMPLETE! XX SCH (17:50)
[2021-08-21 18:13] LABS: INR 1.33; PROTHROMBIN TIME 16.9 SECONDS (12.7-14.5)
[2021-08-21 18:30] LABS: D-DIMER QUANT 3281.92 ng/ml (<500)
[2021-08-21] MEDS ORDERED: ALBUTEROL SULFATE 2.5 MG/0.5 ML INH NEB SOLN NEB PRN (18:40)
[2021-08-21] MEDS ORDERED: NS 1,000 ML IV SCH (18:55)
[2021-08-21 19:43] LABS: PERCENT SATURATION 4.9 % (13.2-45.0)
[2021-08-21 19:47] LABS: C REACTIVE PROTEIN QUANTITATIV 13.7 MG/DL (0.00-0.30)
[2021-08-21] MEDS: PIPERACILLIN/TAZOBACTAM SOD 3.375 GM in D5W MINI-BAG PLUS 50 ML IV SCH (21:37)
[2021-08-21 23:11] VITALS: BP 129/59
[2021-08-21] MEDS ORDERED: ACETAMINOPHEN 650 MG SUPP PR SCH (23:25)
[2021-08-21] MEDS ORDERED: RAMELTEON 8 MG TAB (ROZEREM) PO PRN (23:30)
[2021-08-21] MEDS ORDERED: ACETAMINOPHEN 500 MG TAB PO ONE (23:30)
[2021-08-21] MEDS ORDERED: hydrOXYzine 25 MG TAB PO PRN (23:30)
[2021-08-22] VITALS (16 sets, daily range): BP systolic 104–169; BP diastolic 52–75
[2021-08-22] MEDS ORDERED: ACETAMINOPHEN 500 MG TAB PO ONE
[2021-08-22] MEDS ORDERED: FUROSEMIDE 20MG/2ML VIAL (J1940) IV ONE (03:00)
[2021-08-22] MEDS: PIPERACILLIN/TAZOBACTAM SOD 3.375 GM in D5W MINI-BAG PLUS 50 ML IV SCH ×4 (04:58→20:32)
[2021-08-22] MEDS ORDERED: ACETAMINOPHEN TAB 650MG DOSE (2X325MG) PO PRN (06:00)
[2021-08-22] MEDS ORDERED: ENOXAPARIN 40MG/0.4ML SYRINGE (J1650 PER 10MG) SC SCH (09:00)
[2021-08-22] MEDS: NICOTINE 14 MG/24 HR TRANSDERMAL TD SCH (09:00)
[2021-08-22 11:06] LABS: HEMATOCRIT 28.7 % (36.0-47.0); HEMOGLOBIN 8.5 g/dl (12.0-15.5); MEAN CORPUSCULAR HEMOGLOBIN 22.8 pg (27.0-33.0); MEAN CORPUSCULAR HGB CONC 29.6 g/dl (32.0-36.5); MEAN CORPUSCULAR VOLUME 76.9 fl (80.0-96.0); RED BLOOD COUNT 3.73 10^6/uL (4.00-5.40); WHITE BLOOD COUNT 13.1 10^3/uL (4.0-10.0)
[2021-08-22 11:41] LABS: ALBUMIN 1.7 GM/DL (3.2-5.2); ALT/SGPT 10 U/L (12-78); BILIRUBIN,TOTAL 0.9 MG/DL (0.2-1.0); BLOOD UREA NITROGEN 13 MG/DL (7-18); CALCIUM LEVEL 9.6 MG/DL (8.8-10.2); CARBON DIOXIDE LEVEL 29 MEQ/L (21-32); CHLORIDE LEVEL 102 MEQ/L (98-107); CREATININE FOR GFR 0.55 MG/DL (0.55-1.30); GLOMERULAR FILTRATION RATE > 60.0 (>45); GLUCOSE, FASTING 113 MG/DL (70-100); POTASSIUM SERUM 4.1 MEQ/L (3.5-5.1); SODIUM LEVEL 137 MEQ/L (136-145); TOTAL PROTEIN 6.6 GM/DL (6.4-8.2)
[2021-08-22] MEDS: FERROUS SULFATE 325MG TAB PO SCH (20:33)
[2021-08-22] MEDS: ACETAMINOPHEN TAB 650MG DOSE (2X325MG) PO PRN (20:33)
[2021-08-22] MEDS ORDERED: MORPHINE 2 MG/ML 1ML VIAL (J2270) IV PRN (22:00)
[2021-08-22] MEDS ORDERED: PERCOCET 5MG/325MG TAB PO PRN (22:00)
[2021-08-23] VITALS: BP 124/60
[2021-08-23 04:00] VITALS: BP 156/73
[2021-08-23] MEDS: PIPERACILLIN/TAZOBACTAM SOD 3.375 GM in D5W MINI-BAG PLUS 50 ML IV SCH ×4 (04:11→21:08)
[2021-08-23 08:00] VITALS: BP 146/66
[2021-08-23 08:41] LABS: HEMATOCRIT 28.2 % (36.0-47.0); HEMOGLOBIN 8.5 g/dl (12.0-15.5); MEAN CORPUSCULAR HEMOGLOBIN 23.2 pg (27.0-33.0); MEAN CORPUSCULAR HGB CONC 30.1 g/dl (32.0-36.5); PLATELET COUNT, AUTOMATED 611 10^3/uL (150-450); RED BLOOD COUNT 3.66 10^6/uL (4.00-5.40); WHITE BLOOD COUNT 10.9 10^3/uL (4.0-10.0)
[2021-08-23] MEDS: NICOTINE 14 MG/24 HR TRANSDERMAL TD SCH (09:00)
[2021-08-23] MEDS: FERROUS SULFATE 325MG TAB PO SCH ×2 (09:00→21:00)
[2021-08-23 09:34] LABS: ALBUMIN 1.6 GM/DL (3.2-5.2); ALT/SGPT 9 U/L (12-78); BILIRUBIN,TOTAL 0.3 MG/DL (0.2-1.0); BLOOD UREA NITROGEN 14 MG/DL (7-18); CALCIUM LEVEL 9.5 MG/DL (8.8-10.2); CARBON DIOXIDE LEVEL 25 MEQ/L (21-32); CHLORIDE LEVEL 103 MEQ/L (98-107); CREATININE FOR GFR 0.52 MG/DL (0.55-1.30); GLOMERULAR FILTRATION RATE > 60.0 (>45); GLUCOSE, FASTING 96 MG/DL (70-100); POTASSIUM SERUM 4.3 MEQ/L (3.5-5.1); SODIUM LEVEL 136 MEQ/L (136-145); TOTAL PROTEIN 6.5 GM/DL (6.4-8.2)
[2021-08-23 12:11] VITALS: BP 117/59
[2021-08-23 19:41] VITALS: BP 159/75
[2021-08-23] MEDS: ACETAMINOPHEN TAB 650MG DOSE (2X325MG) PO PRN (20:07)
[2021-08-24 04:00] VITALS: BP 166/72
[2021-08-24] MEDS: PIPERACILLIN/TAZOBACTAM SOD 3.375 GM in D5W MINI-BAG PLUS 50 ML IV SCH ×2 (04:22→11:43)
[2021-08-24] MEDS: FERROUS SULFATE 325MG TAB PO SCH ×2 (09:00→20:50)
[2021-08-24] MEDS: NICOTINE 14 MG/24 HR TRANSDERMAL TD SCH (09:00)
[2021-08-24 14:00] VITALS: BP 129/62
[2021-08-24] MEDS ORDERED: guaiFENesin 200 MG TAB PO PRN (15:40)
[2021-08-24 19:15] VITALS: BP 130/61
[2021-08-24] MEDS: ACETAMINOPHEN TAB 650MG DOSE (2X325MG) PO PRN (20:50)
[2021-08-24] MEDS: AUGMENTIN 875 MG TAB PO SCH (20:50)
[2021-08-24 22:09] VITALS: BP 117/56
[2021-08-25 04:44] VITALS: BP 119/61
[2021-08-25] MEDS: NICOTINE 14 MG/24 HR TRANSDERMAL TD SCH (09:00)
[2021-08-25] MEDS: AUGMENTIN 875 MG TAB PO SCH (09:52)
[2021-08-25] MEDS: FERROUS SULFATE 325MG TAB PO SCH (09:52)
[2021-08-25 14:00] VITALS: BP 130/62
[2021-08-25] MEDS ORDERED: FERR1TAB8 PO (14:07)
[2021-08-25] MEDS ORDERED: NICO14PA TD (14:07)
[2021-08-25] MEDS ORDERED: PURE500C5 PO (14:07)
[2021-08-25] MEDS ORDERED: AMOX875T2 PO ×2 (14:07→14:08)
== END 2021-08-25 16:30 | disposition home health service (06) | DRG 136 ==
LOC: M PCU 16:38 → M 4MAIN 18:33
PROVIDERS: ADMIT Internal Medicine; ATTEND Internal Medicine
PROC: 30233N1 Transfusion of Nonautologous Red Blood Cells into Peripheral Vein, Percutaneous Approach (ICD-10-PCS; principal; 2021-08-22)
DX: C34.11 Malignant neoplasm of upper lobe, right bronchus or lung (principal); U07.1 COVID-19; J12.82 Pneumonia due to coronavirus disease 2019; D50.9 Iron deficiency anemia, unspecified; E46 Unspecified protein-calorie malnutrition; F17.210 Nicotine dependence, cigarettes, uncomplicated; I10 Essential (primary) hypertension; C79.51 Secondary malignant neoplasm of bone; Z66 Do not resuscitate; E87.2 Acidosis; Z79.899 Other long term (current) drug therapy; Z91.013 Allergy to seafood; Z91.09 Other allergy status, other than to drugs and biological substances; Z68.20 Body mass index [BMI] 20.0-20.9, adult

== ENCOUNTER → 2021-08-21 | Outpatient (CLI) | payer OTHER ==
[~2021-08-21] MED LIST changes: +AMOX875T2 PO; +FERR1TAB8 PO; +LIDOCAINE 1% MDV 20ML VIAL As Ordered ONE; +NICO14PA TD; +PURE500C5 PO
[2021-08-21 11:56] VITALS: BP 122/58
== END ==
LOC: M IRPRO 07:04
PROVIDERS: ATTEND Internal Medicine Pulmonary Disease
DX: C34.11 Malignant neoplasm of upper lobe, right bronchus or lung (principal)

== ENCOUNTER → 2021-08-21 | Outpatient (CLI) | payer OTHER ==
[~2021-08-21] MED LIST changes: -LIDOCAINE 1% MDV 20ML VIAL As Ordered ONE
[2021-08-21 15:33] LABS: HEMATOCRIT 23.6 % (36.0-47.0); MEAN CORPUSCULAR HEMOGLOBIN 21.2 pg (27.0-33.0); MEAN CORPUSCULAR VOLUME 75.9 fl (80.0-96.0); PLATELET COUNT, AUTOMATED 744 10^3/uL (150-450); RED BLOOD COUNT 3.11 10^6/uL (4.00-5.40); WHITE BLOOD COUNT 13.4 10^3/uL (4.0-10.0)
[2021-08-21 15:37] LABS: HEMOGLOBIN 6.6 g/dl (12.0-15.5)
[2021-08-21 16:07] LABS: ALT/SGPT 11 U/L (12-78); BILIRUBIN,TOTAL < 0.1 MG/DL (0.2-1.0); BLOOD UREA NITROGEN 15 MG/DL (7-18); CARBON DIOXIDE LEVEL 28 MEQ/L (21-32); CHLORIDE LEVEL 102 MEQ/L (98-107); CREATININE FOR GFR 0.61 MG/DL (0.55-1.30); GLOMERULAR FILTRATION RATE > 60.0 (>45); GLUCOSE, FASTING 121 MG/DL (70-100); POTASSIUM SERUM 4.1 MEQ/L (3.5-5.1); SODIUM LEVEL 137 MEQ/L (136-145)
[2021-08-21 17:39] LABS: AMORPHOUS SEDIMENT LARGE (NEGATIVE); APPEARANCE, URINE TURBID (CLEAR); BACTERIA, URINE AUTO NEGATIVE (NEGATIVE); BILIRUBIN, URINE AUTO NEGATIVE (NEGATIVE); BLOOD, URINE BLOOD 2+ (NEGATIVE); COLOR, URINE YELLOW (YELLOW); GLUCOSE, URINE (UA) AUTO NEGATIVE (NEGATIVE); KETONE, URINE AUTO NEGATIVE (NEGATIVE); LEUKOCYTE ESTERASE, URINE AUTO NEGATIVE (NEGATIVE); MUCUS, URINE LARGE (NEGATIVE); NITRITE, URINE AUTO NEGATIVE (NEGATIVE); PROTEIN, URINE AUTO 1+ mg/dL (NEGATIVE); RBC, URINE AUTO 0 /HPF (0-3); SPECIFIC GRAVITY URINE AUTO 1.021 (1.002-1.035); SQUAMOUS EPITHELIAL CELL UR AU 3 /HPF (0-6); UROBILINOGEN, URINE AUTO 0.2 mg/dL (0.0-2.0); WBC, URINE AUTO 0 /HPF (0-3)
== END ==
LOC: M PLALAB 14:49
PROVIDERS: ATTEND Family Medicine
DX: R35.0 Frequency of micturition (principal)

== ENCOUNTER → 2021-08-21 | Outpatient (REF) | payer OTHER | LOC: M SFHCPLAZ 14:38 | PROVIDERS: ATTEND Family Medicine | DX: R35.0 Frequency of micturition (principal) ==

== ENCOUNTER 2021-08-25 19:02 | Observation (INO) | payer OTHER ==
[~2021-08-25] VITALS: Ht 157.5 cm; Wt 50.8 kg
[~2021-08-25 19:02] MED LIST changes: +AMOX875T2 PO; +FERR1TAB8 PO; +NICO14PA TD; +PURE500C5 PO
[2021-08-25 19:58] LABS: BASO % 0.2 % (0.0-1.0); EOS % 0.3 % (0.0-3.0); HEMATOCRIT 29.7 % (36.0-47.0); HEMOGLOBIN 8.8 g/dl (12.0-15.5); LYMPH # 0.9 10^3/uL (1.5-5.0); LYMPH % 6.4 % (24.0-44.0); MEAN CORPUSCULAR HEMOGLOBIN 22.7 pg (27.0-33.0); MEAN CORPUSCULAR HGB CONC 29.6 g/dl (32.0-36.5); MEAN CORPUSCULAR VOLUME 76.7 fl (80.0-96.0); MONO # 1.3 10^3/uL (0.0-0.8); MONO % 9.5 % (2.0-8.0); NEUTROPHILS % 82.8 % (36.0-66.0); PLATELET COUNT, AUTOMATED 566 10^3/uL (150-450); RED BLOOD COUNT 3.87 10^6/uL (4.00-5.40); WHITE BLOOD COUNT 13.3 10^3/uL (4.0-10.0)
[2021-08-25 20:22] LABS: ALBUMIN 1.9 GM/DL (3.2-5.2); ALT/SGPT 17 U/L (12-78); BILIRUBIN,TOTAL 0.2 MG/DL (0.2-1.0); BLOOD UREA NITROGEN 15 MG/DL (7-18); CALCIUM LEVEL 9.5 MG/DL (8.8-10.2); CARBON DIOXIDE LEVEL 24 MEQ/L (21-32); CHLORIDE LEVEL 104 MEQ/L (98-107); CREATININE FOR GFR 0.56 MG/DL (0.55-1.30); GLOMERULAR FILTRATION RATE > 60.0 (>45); GLUCOSE, FASTING 131 MG/DL (70-100); MAGNESIUM LEVEL 2.1 MG/DL (1.8-2.4); POTASSIUM SERUM 4.3 MEQ/L (3.5-5.1); SODIUM LEVEL 136 MEQ/L (136-145); TOTAL PROTEIN 7.1 GM/DL (6.4-8.2)
[2021-08-25] MEDS ORDERED: cefTRIAXone SOD 1 GM in D5W MINI-BAG PLUS 50 ML IV ONE (22:05)
[2021-08-25] MEDS ORDERED: AZITHROMYCIN INJ 500 MG, VIAL MATE ADAPTER 1 EACH in NS 250 ML IV ONE (22:05)
[2021-08-25] MEDS ORDERED: DERMABOND TOPICAL SKIN ADHESIVE TOP ONE (23:45)
[2021-08-26] MEDS ORDERED: HYDROMORPHONE HCL 0.5 MG/ 0.5 ML SYRINGE (J1170 PER 1) IV PRN (00:50)
[2021-08-26 02:36] VITALS: BP 122/60
[2021-08-26] MEDS ORDERED: HOME MED LIST COMPLETE! XX SCH (03:05)
[2021-08-26 04:16] VITALS: BP 136/62
[2021-08-26] MEDS: ACETAMINOPHEN TAB 650MG DOSE (2X325MG) PO PRN ×3 (04:53→18:42)
[2021-08-26] MEDS: HEPARIN SOD (PORCINE) 5000UNITS/ML 1ML VIAL/SYRINGE SC SCH ×2 (04:53→15:05)
[2021-08-26 13:48] VITALS: BP 138/95
== END 2021-08-26 20:57 | disposition home or self-care (01) ==
LOC: M ED 19:02 → INTOOBSV 23:52 → M ED INP 23:52 → M 4MAIN 08-26 02:46
PROVIDERS: ADMIT Internal Medicine; ATTEND Internal Medicine
DX: R29.6 Repeated falls (principal); C34.11 Malignant neoplasm of upper lobe, right bronchus or lung; S01.81XA Laceration without foreign body of other part of head, initial encounter; W00.0XXA Fall on same level due to ice and snow, initial encounter; Y92.410 Unspecified street and highway as the place of occurrence of the external cause; Y93.01 Activity, walking, marching and hiking; Y99.8 Other external cause status; M79.601 Pain in right arm; R93.7 Abnormal findings on diagnostic imaging of other parts of musculoskeletal system; U07.1 COVID-19; D64.9 Anemia, unspecified; E88.09 Other disorders of plasma-protein metabolism, not elsewhere classified; R74.8 Abnormal levels of other serum enzymes; J44.9 Chronic obstructive pulmonary disease, unspecified; F17.210 Nicotine dependence, cigarettes, uncomplicated; Z79.899 Other long term (current) drug therapy; Z79.2 Long term (current) use of antibiotics; Z91.013 Allergy to seafood; Z91.048 Other nonmedicinal substance allergy status; Z88.8 Allergy status to other drugs, medicaments and biological substances
CPT/HCPCS: 70450; 70486; 71045; 72125; 73030; 73060; 73130; 73564; 80053; 83605; 83735; 85025; 87040; 87798; 93005; 96365; 96372; 97116; 97161; 99285; J0456; J0696; J1644

== ENCOUNTER → 2021-09-04 | Outpatient (CLI) | payer OTHER ==
[~2021-09-04] MED LIST changes: +HALD50IN4
== END ==
LOC: M ONCR 09:24
PROVIDERS: ATTEND General Practice
DX: C34.11 Malignant neoplasm of upper lobe, right bronchus or lung (principal); F17.210 Nicotine dependence, cigarettes, uncomplicated; Z88.1 Allergy status to other antibiotic agents; Z91.013 Allergy to seafood

== ENCOUNTER → 2021-10-05 | Outpatient (RCR) | payer OTHER ==
[~2021-10-05] MED LIST changes: +HALO5TAB33 PO; +HYDR-3715 PO; +NITR-67 PO; +QC A650T3 PO; +VOTR200T2 PO
== END ==
LOC: M ONCR 09-09 07:11
PROVIDERS: ATTEND General Practice
DX: C34.11 Malignant neoplasm of upper lobe, right bronchus or lung (principal)

== ENCOUNTER 2021-10-06 14:20 | Outpatient (RCR) | payer OTHER | END 2021-11-05 | LOC: M ONCR 14:20 | PROVIDERS: ATTEND General Practice | DX: C34.11 Malignant neoplasm of upper lobe, right bronchus or lung (principal) ==

== ENCOUNTER → 2022-10-22 | Outpatient (CLI) | payer OTHER ==
[~2022-10-22] MED LIST changes: +ASCO500C3 PO; -PURE500C5 PO
[2022-10-22 17:45] LABS: APPEARANCE, URINE HAZY (CLEAR); BACTERIA, URINE AUTO NEGATIVE (NEGATIVE); BILIRUBIN, URINE AUTO NEGATIVE (NEGATIVE); BLOOD, URINE BLOOD 1+ (NEGATIVE); COLOR, URINE YELLOW (YELLOW); GLUCOSE, URINE (UA) AUTO NEGATIVE (NEGATIVE); KETONE, URINE AUTO TRACE mg/dL (NEGATIVE); LEUKOCYTE ESTERASE, URINE AUTO NEGATIVE (NEGATIVE); MUCUS, URINE SMALL (NEGATIVE); NITRITE, URINE AUTO NEGATIVE (NEGATIVE); PROTEIN, URINE AUTO NEGATIVE (NEGATIVE); RBC, URINE AUTO 2 /HPF (0-3); SPECIFIC GRAVITY URINE AUTO 1.027 (1.002-1.035); SQUAMOUS EPITHELIAL CELL UR AU 0 /HPF (0-6); WBC, URINE AUTO 1 /HPF (0-3)
[2022-10-22 17:56] LABS: HEMATOCRIT 41.5 % (36.0-47.0); HEMOGLOBIN 13.2 g/dl (12.0-15.5); MEAN CORPUSCULAR HEMOGLOBIN 29.6 pg (27.0-33.0); MEAN CORPUSCULAR HGB CONC 31.8 g/dl (32.0-36.5); PLATELET COUNT, AUTOMATED 402 10^3/uL (150-450); RED BLOOD COUNT 4.46 10^6/uL (4.00-5.40); WHITE BLOOD COUNT 7.2 10^3/uL (4.0-10.0)
[2022-10-22 18:27] LABS: ALBUMIN 3.8 G/DL (3.2-5.2); ALKALINE PHOSPHATASE 96 U/L (46-116); ALT/SGPT 16 U/L (7.0-40); AST/SGOT 14 U/L (<34); BILIRUBIN,TOTAL 0.2 MG/DL (0.3-1.2); BLOOD UREA NITROGEN 13 MG/DL (9-23); CALCIUM LEVEL 8.9 MG/DL (8.3-10.6); CARBON DIOXIDE LEVEL 28 MMOL/L (20-31); CHLORIDE LEVEL 110 MMOL/L (98-107); CHOLESTEROL LEVEL 215 MG/DL (<200); CHOLESTEROL RISK RATIO 3.21 (<5); CREATININE FOR GFR 0.72 MG/DL (0.55-1.30); GLOMERULAR FILTRATION RATE > 60.0 (>45); GLUCOSE, FASTING 86 MG/DL (74-106); HDL CHOLESTEROL 66.8 MG/DL (>40); LDL CHOLESTEROL 127.4 MG/DL (<100); NON-HDL-C 148.2 MG/DL; POTASSIUM SERUM 4.2 MMOL/L (3.5-5.1); SODIUM LEVEL 142 MMOL/L (136-145); TOTAL PROTEIN 7.2 G/DL (5.7-8.2); TRIGLYCERIDES LEVEL 104 MG/DL (<150)
[2022-10-22 18:52] LABS: HIV 1&2 SCREEN CENTAUR NEGATIVE (NEGATIVE)
[2022-10-22 19:05] LABS: HEMOGLOBIN A1c 5.1 % (4.0-6.0)
== END ==
LOC: M PLALAB 15:41
PROVIDERS: ATTEND Student in an Organized Health Care Education/Training Program
DX: Z11.4 Encounter for screening for human immunodeficiency virus [HIV] (principal); Z13.1 Encounter for screening for diabetes mellitus; R91.8 Other nonspecific abnormal finding of lung field; F17.200 Nicotine dependence, unspecified, uncomplicated; Z13.220 Encounter for screening for lipoid disorders; R35.0 Frequency of micturition

== ENCOUNTER → 2024-12-18 | Outpatient (REF) ==
[~2024-12-18] MED LIST changes: +CEFD1CAP9 PO; -CEFD300C41 PO; -CYCL5TAB PO; +CYCL5TAB4 PO; -RISP-10 PO; +RISP3TAB77 PO
== END ==
LOC: M PLAIMG 10:42
PROVIDERS: ATTEND Internal Medicine
DX: R52 Pain, unspecified (principal)